=== PATIENT | male | born 1970 | race Caucasian/White ===

== ENCOUNTER 2018-03-16 17:08 | Inpatient (IN) | payer MEDICAID ==
[~2018-03-16] VITALS: Ht 175.3 cm; Wt 99.4 kg
[2018-03-16 17:10] VITALS: BP 161/92
--- NOTE | 2018-03-16 17:10 | NUR ---
Pt placed in bed 1 by EMS.
[2018-03-16] MEDS ORDERED: ACETAMINOPHEN EXTRA STRENGTH 500 MG TAB PO ONE (17:25)
[2018-03-16] MEDS ORDERED: ACETAMINOPHEN EXTRA STRENGTH 500 MG TAB ONE (17:27)
[2018-03-16] MEDS ORDERED: NACL 0.9% 3,000 ML IV ONE (17:30)
--- NOTE | 2018-03-16 17:45 | NUR ---
47/M biba [place] a [place] station with complaints of cough and congestion x2-3 days. Pt describes a productive cough with a green phlegm. Per EMS, patient was febrile on scene 100.4 per paramedics. Pt skin hot flushed to touch. Temp 100.8 orally. Pt also c/o left foot pain starting this am, denies any injury or trauma. AOX4, pt placed in a gown, on fbi investigator, pulse oximetry and blood pressure monitoring.
[2018-03-16] MEDS ORDERED: KETOROLAC 30 MG/ML VIAL IVP ONE (18:45)
--- NOTE | 2018-03-16 18:45 | NUR ---
Dr. Ferrari aware of temp 101.8; Toradol ordered and will be executed as ordered.
[2018-03-16 19:05] LABS: BASOPHILS % (AUTO) 0.3 % (0.0-2.0); HEMATOCRIT 40.4 % (36-52); HEMOGLOBIN 13.3 g/dL (12.0-18.0); LYMPHOCYTES # (AUTO) 0.6 K/uL (2.0-11.5); LYMPHOCYTES % (AUTO) 4.5 % (20.5-51.1); MEAN CORPUSCULAR HEMOGLOBIN 26 pg (27-31); MEAN CORPUSCULAR HGB CONC 33 g/dL (33-37); MEAN CORPUSCULAR VOLUME 79.6 fL (80-94); MONOCYTES # (AUTO) 0.6 K/uL (0.8-1.0); MONOCYTES % (AUTO) 4.9 % (1.7-9.3); NEUTROPHILS # (AUTO) 11.3 K/uL (1.8-7.7); NEUTROPHILS % (AUTO) 90.3 % (42.2-75.2); PLATELET COUNT (AUTO) 212 K/uL (140-450); RED BLOOD CELL COUNT(AUTO) 5.07 MIL/uL (4.20-6.10); RED CELL DISTRIBUTION WIDTH 13.5 % (11.6-13.7); WHITE BLOOD COUNT (AUTO) 12.5 K/uL (4.8-10.8)
--- NOTE | 2018-03-16 19:13 | NUR ---
Pt report given to [facility]. Transfer of care at this time.
[2018-03-16 19:27] LABS: PROTHROMBIN TIME 10.1 secs (10.8-13.4)
[2018-03-16 19:30] LABS: ANION GAP 12.5 (8-16); CARBON DIOXIDE 26.5 mmol/L (21-32); CREATININE 1.2 mg/dL (0.7-1.3)
[2018-03-16 19:36] LABS: ALBUMIN 3.1 g/dL (3.4-5.0); TOTAL BILIRUBIN 0.4 mg/dL (0.0-1.0)
[2018-03-16] MEDS ORDERED: MORPHINE SULFATE 4 MG/ML SYR IVP ONE ×2 (20:00→23:50)
[2018-03-16] MEDS ORDERED: PROMETHAZINE 25 MG/ML VIAL IVP ONE (20:05)
[2018-03-16] MEDS ORDERED: VANCOMYCIN PER PHARMACY MC PRN (21:00)
[2018-03-16] MEDS ORDERED: VANCOMYCIN 1GM/DEXT 5% PREMIX 200 ML IV ONE (21:00)
[2018-03-16] MEDS ORDERED: CEFEPIME 1,000 MG in DEXTROSE 5% 50 ML IV ONE (21:00)
[2018-03-16] MEDS ORDERED: NACL 0.9% 1,000 ML IV ONE (21:00)
[2018-03-16] MEDS ORDERED: CEFEPIME 1,000 MG VIAL ONE (21:45)
[2018-03-16] MEDS ORDERED: VANCOMYCIN 1,000 MG VIAL ONE (22:38)
[2018-03-16] MEDS ORDERED: VANCOMYCIN 1,000 MG in DEXTROSE 5% 250 ML IV ONE (22:40)
[2018-03-16 23:39] LABS: AMYLASE 78 U/L (25-115); LIPASE 59 U/L (73-393)
[2018-03-17 01:10] LABS: APPEARANCE,URINE CLEAR (CLEAR); COLOR,URINE YELLOW (YELLOW)
[2018-03-17 01:11] LABS: BILIRUBIN,URINE NEGATIVE (NEGATIVE); BLOOD, URINE NEGATIVE (NEGATIVE); LEUKOCYTE ESTERASE ,URINE NEGATIVE (NEGATIVE); NITRITE, URINE NEGATIVE (NEGATIVE); UGLUCOSE 2+ (NEGATIVE)
[2018-03-17] MEDS ORDERED: ONDANSETRON 4 MG/2 ML VIAL IM/IVP PRN (02:05)
[2018-03-17] MEDS ORDERED: HYDROcodone/APAP 7.5/325 MG 1 TAB PO PRN (02:05)
[2018-03-17] MEDS ORDERED: DOCUSATE SODIUM 100 MG GELCAP PO PRN (02:05)
[2018-03-17] MEDS ORDERED: MORPHINE SULFATE 4 MG/ML SYR IVP PRN (02:05)
[2018-03-17] MEDS ORDERED: ACETAMINOPHEN 325 MG TAB PO PRN (02:05)
[2018-03-17] MEDS ORDERED: INSULIN LISPRO SLIDING SCALE 100 UNITS/ML VIAL SUBQ PRN (02:20)
[2018-03-17] MEDS ORDERED: DEXTROSE 50% 50 ML SYR IVP PRN (02:20)
[2018-03-17] MEDS ORDERED: MECLIZINE 25 MG TAB PO ONE (02:55)
[2018-03-17] MEDS ORDERED: NACL 0.9% 1,000 ML IV SCH (03:00)
[2018-03-17] MEDS ORDERED: LEVOFLOXACIN 750 MG/D5W PREMIX 150 ML IV SCH (03:00)
[2018-03-17] MEDS ORDERED: MECLIZINE 25 MG TAB PO PRN (03:00)
[2018-03-17 03:10] VITALS: BP 143/84
--- NOTE | 2018-03-17 03:10 | NUR ---
RECEIVED PT FROM ER NURSE CLYDE-JESUSITA VIA GRACY. PT DID NOT ABMBULATE. AOX1-ANSWERS TO NAME, DIFFICULT TO ARROUSE. ON ROOM AIR, RIGHT EJ 20G, PATENT AND INTACT WITH NS RUNNING AT 60ML/HR. MRSA SWAB DONE. UNABLE TO GET MOST OF PT HX. NO S/S OF RESPIRATORY DISTRESS OR DISCOMFORT AT THIS TIME. UPDATED WHITE BOARD. BED IN LOWEST POSITION, BED BREAKS ON, BED ALARMS ON. BED SIDE TABLE AND CALL LIGHT WITHIN REACH. WILL CONTINUE TO MONITOR.
--- NOTE | 2018-03-17 03:12 | NUR ---
REPORT GIVEN AND CARE TRANSFERED TO [facility] RROM 120B. PT TRANSPORTED VIA GURNEY WITH VSS.
--- NOTE | 2018-03-17 03:45 | NUR ---
SCHEDULED MEDICATION GIVEN. NO S/S OF RESPIRATORY DISTRESS OR DISCOMFORT. PT CONTINUES TO SLEEP. WILL CONTINUE TO MONITOR.
[2018-03-17 04:31] LABS: BARBITURATE, URINE NEGATIVE ng/ml (NEG <=200); BENZODIAZEPINE, URINE NEGATIVE ng/mL (NEG <=200); CANNABINOID, URINE POSITIVE ng/mL (NEG <=50); COCAINE, URINE NEGATIVE ng/mL (NEG <=300); PHENCYCLIDINE SCREEN,URINE NEGATIVE ng/mL (NEG <=25)
[2018-03-17 04:32] LABS: OPIATE, URINE POSITIVE ng/mL (NEG <=2000)
[2018-03-17 06:13] LABS: MAGNESIUM 1.5 mg/dL (1.8-2.4); PHOSPHORUS 1.9 mg/dL (2.5-4.9); TRIGLYCERIDES 44 mg/dL (30-150)
[2018-03-17 06:14] LABS: FREE T4 (FREE THYROXINE) 1.23 ng/dL (0.76-1.46); LIPASE 62 U/L (73-393)
[2018-03-17 06:39] LABS: BASOPHILS % (AUTO) 0.3 % (0.0-2.0); HEMATOCRIT 38.5 % (36-52); HEMOGLOBIN 12.5 g/dL (12.0-18.0); LYMPHOCYTES # (AUTO) 2.7 K/uL (2.0-11.5); LYMPHOCYTES % (AUTO) 19.5 % (20.5-51.1); MEAN CORPUSCULAR HEMOGLOBIN 26 pg (27-31); MEAN CORPUSCULAR HGB CONC 33 g/dL (33-37); MEAN CORPUSCULAR VOLUME 80.3 fL (80-94); MONOCYTES % (AUTO) 7.6 % (1.7-9.3); NEUTROPHILS % (AUTO) 72.6 % (42.2-75.2); PLATELET COUNT (AUTO) 192 K/uL (140-450); RED CELL DISTRIBUTION WIDTH 13.8 % (11.6-13.7); WHITE BLOOD COUNT (AUTO) 13.7 K/uL (4.8-10.8)
[2018-03-17] MEDS: BLOOD GLUCOSE MONITORING 1 DEV DEV FS SCH ×2 (07:09→12:17)
--- NOTE | 2018-03-17 07:16 | NUR ---
ENDORSED PT CARE TO DAY SHIFT NURSE SARA FOR CONTINUITY OF CARE.
[2018-03-17] MEDS ORDERED: hePARIN / DEXT 5% PREMIX 250 ML IV SCH ×2 (07:35→08:05)
[2018-03-17] MEDS ORDERED: HEPARIN PER PHARMACY MC PRN (07:35)
[2018-03-17 08:00] VITALS: BP 146/85
--- NOTE | 2018-03-17 08:00 | NUR ---
PATIENT AWAKE, ALERT. RESPIRATION EVEN, UNLABOR ON ROOM AIR. SKIN DRY AND WARM. IV PATENT AND INTACT. PATIENT STATED HE IS NOT FEELING WELL, DENIED PAIN, SOB, N/V AT THIS TIME. VS IS STABLE. PLAN OF CARE WAS DISCUSSED WITH PATIENT. BED AT LOW POSITION, SIDE RAILS UP. CALL LIGHT WITHIN REACH.
[2018-03-17] MEDS ORDERED: METOPROLOL 25 MG TAB PO SCH (09:00)
[2018-03-17] MEDS ORDERED: LISINOPRIL 5 MG TAB PO SCH (09:00)
[2018-03-17] MEDS ORDERED: ATORVASTATIN 20 MG TAB PO SCH (09:00)
[2018-03-17] MEDS ORDERED: LACTOBACILLUS RHAMNOSUS GG 1 EACH CAP PO SCH (09:00)
[2018-03-17] MEDS ORDERED: ASPIRIN 81 MG TAB.CHEW PO SCH (09:00)
[2018-03-17] MEDS ORDERED: levETIRAcetam 500 MG TAB PO SCH (09:00)
--- NOTE | 2018-03-17 09:15 | NUR ---
PATIENT REFUSED TO GIVE CONSENT FOR CT SCAN CHEST WITH CONTRAST, AND HAVE ANOTHER IV INSERTED. WILL NOTIFY
--- NOTE | 2018-03-17 09:22 | NUR ---
PATIENT WAS TRANSFERRED TO CT SCAN IN WHEELCHAIR. PATIENT IS STABLE AT THIS TIME.
[2018-03-17 11:15] LABS: ANION GAP 14.3 (8-16); CARBON DIOXIDE 22.2 mmol/L (21-32); CREATININE 0.7 mg/dL (0.7-1.3); POTASSIUM 3.5 mmol/L (3.5-5.1)
--- NOTE | 2018-03-17 11:30 | NUR ---
PATIENT IS SLEEPING COMFORTABLY, EASILY AROUSABLE. RESPIRATION EVEN, UNLABOR ON ROOM AIR. VS IS STABLE. FAMILY AT BEDSIDE. NO DISTRESS NOTED AT THIS TIME. CALL LIGHT WITHIN REACH
[2018-03-17 12:00] VITALS: BP 139/70
--- NOTE | 2018-03-17 13:36 | NUR ---
DR. GUTIERREZ WAS MADE AWARE PATIENT IS STILL ON HEPARIN DRIP AND REFUSED TO HAVE ANOTHER IV INSERT. ADVISED TO HOLD MAG RIDER UNTIL VQ SCAN RESULT COME BACK.
[2018-03-17 13:57] LABS: MAGNESIUM 1.7 mg/dL (1.8-2.4); PHOSPHORUS 2.5 mg/dL (2.5-4.9)
[2018-03-17] MEDS ORDERED: SODIUM PHOS / POTASSIUM PHOS 1 PKT PDR PO SCH (14:00)
[2018-03-17] MEDS ORDERED: MAG SULF 2000 MG/WATER PREMIX 50 ML IV SCH (14:00)
--- NOTE | 2018-03-17 14:22 | NUR ---
PATIENT REFUSED IV INSERTION AGAIN. VQ IS UNABLE TO BE DONE PER [employer] MED TECH. DR. KAM WAS MADE AWARE.
--- NOTE | 2018-03-17 14:28 | NUR ---
03/17/18 RD INITIAL ASSESSMENT COMPLETED PLEASE REFER TO NUTRITION ASSESSMENT UNDER CARE ACTIVITY FOR ESTIMATED NUTRITIONAL NEEDS. 1. CONTINUE CCHO 60 GM DIET TOLERATED 2. PROVIDED NUTRITION EDUCATION FOR DIABETES 3. RD TO FOLLOW-UP 2-3 DAYS, HIGH RISK PIERCE PATEL RD
--- NOTE | 2018-03-17 14:30 | NUR ---
PATIENT REFUSED CT SCAN WITH CONTRAST, VQ SCAN, AND CENTRAL LINE DESPITE HAVING RISKS EXPLAINED BY DR. DILLON. PATIENT STATED HE WOULD LIKE TO LEAVE AMA, AND NOT GET THESE TREATMENTS. PATIENT SIGNED AMA FORM, AND REFUSAL TO TREATMENT. IV WAS REMOVED, CATHETER INTACT, NO ACTIVE BLEEDING SEEN. ID BAND AND SOFTWARE INTERN WERE REMOVED. ALL BELONGINGS WERE TAKEN WITH THE PATIENT.
--- NOTE | 2018-03-17 15:21 | NUR ---
RECEIVED A CALL IN THE MORNING FROM [employer]FF[employer]Y [employer] MAKER. SHE SAID REFERENCE NO IS [id number], PER JASON FROM [facility], NO REVIEW NEEDED. THEY WILL CALL IF REVIEW NEEDED. PHONE [phone]
[2018-03-18] MEDS ORDERED: LEVOFLOXACIN 750 MG/D5W PREMIX 150 ML IV SCH (04:00)
[2018-03-18 06:19] LABS: T4 (THYROXINE) 8.3 ug/dL (4.5-12.0)
--- NOTE | 2018-03-24 07:42 | NUR ---
RECEIVED A MESSAGE FROM [employer]. FAXED ER REPORT, H&P AND DISCHARGE SUMMARY TO [facility]. FAX [phone] PHONE CHRISTIANO [phone]
== END 2018-03-17 14:30 | disposition left against medical advice (07) | DRG 134 ==
LOC: MED 17:08 → MTU 03-17 02:04
PROVIDERS: ADMIT Family Medicine; ATTEND Family Medicine
DX: I26.99 Other pulmonary embolism without acute cor pulmonale (principal); E11.51 Type 2 diabetes mellitus with diabetic peripheral angiopathy without gangrene; R65.10 Systemic inflammatory response syndrome (SIRS) of non-infectious origin without acute organ dysfunction; E44.0 Moderate protein-calorie malnutrition; E87.8 Other disorders of electrolyte and fluid balance, not elsewhere classified; E87.1 Hypo-osmolality and hyponatremia; E11.65 Type 2 diabetes mellitus with hyperglycemia; K21.9 Gastro-esophageal reflux disease without esophagitis; M94.0 Chondrocostal junction syndrome [Tietze]; I10 Essential (primary) hypertension; Z88.0 Allergy status to penicillin; G40.909 Epilepsy, unspecified, not intractable, without status epilepticus; E83.51 Hypocalcemia; Z68.32 Body mass index [BMI] 32.0-32.9, adult; Z59.0 Homelessness; Z96.652 Presence of left artificial knee joint; F17.210 Nicotine dependence, cigarettes, uncomplicated; G90.9 Disorder of the autonomic nervous system, unspecified; E83.39 Other disorders of phosphorus metabolism; E83.42 Hypomagnesemia; Z53.21 Procedure and treatment not carried out due to patient leaving prior to being seen by health care provider
CPT/HCPCS: 36415; 70450; 71045; 80048; 80053; 80305; 81003; 82150; 82948; 83036; 83605; 83690; 83735; 83880; 84100; 84436; 84439; 84443; 84479; 84484; 85025; 85379; 85610; 85730; 87040; 87081; 87086; 93005; 96361; 96365; 96366; 96367; 96375; 96376; 99285; G0482; J0692; J1644; J1885; J1956; J2270; J2550; J3370; J7030; J7060

== ENCOUNTER 2019-01-02 18:29 | Emergency (ER) | payer MEDICAID ==
[~2019-01-02] VITALS: Ht 175.3 cm; Wt 104.3 kg
[2019-01-02 18:38] VITALS: BP 149/89
--- NOTE | 2019-01-02 19:02 | NUR ---
PT TO ER BED 7
--- NOTE | 2019-01-02 19:19 | NUR ---
PT TO ED WITH C/O ABD PAIN X 2 DAYS. REPORTS NAUSEA. DENIES VOMITTING. REPORTS PAIN GENERALZIED. ABD IS SOFT NON TENDER. BOWEL SOUNDS PRESENT. PT GROANS UPON PALPATION OF ABDOMEN. PT PLACED INTO BED, PENDING MD LARWENCE.
--- NOTE | 2019-01-02 20:24 | NUR ---
PT TO RADIOLOGY VIA WHEELCHAIR BY TECH.
[2019-01-02 20:25] LABS: APPEARANCE,URINE CLEAR (CLEAR); BILIRUBIN,URINE NEGATIVE (NEGATIVE); BLOOD, URINE 1+ (NEGATIVE); COLOR,URINE ORANGE (YELLOW); LEUKOCYTE ESTERASE ,URINE NEGATIVE (NEGATIVE); NITRITE, URINE NEGATIVE (NEGATIVE); UGLUCOSE NEGATIVE (NEGATIVE)
[2019-01-02 20:32] LABS: BARBITURATE, URINE NEG. ng/ml (NEG <=200); BENZODIAZEPINE, URINE NEG. ng/mL (NEG <=200); CANNABINOID, URINE NEG. ng/mL (NEG <=50); COCAINE, URINE NEG. ng/mL (NEG <=300); OPIATE, URINE POS. ng/mL (NEG <=2000); PHENCYCLIDINE SCREEN,URINE NEG. ng/mL (NEG <=25)
[2019-01-02 20:35] LABS: WBC,URINE 0-5 /HPF (0-5)
--- NOTE | 2019-01-02 20:36 | NUR ---
PT RETURN FROM RAD
[2019-01-02] MEDS ORDERED: NALOXONE 0.4 MG/ML VIAL SUBQ ONE (21:30)
--- NOTE | 2019-01-02 21:30 | NUR ---
PT GCS 12 (E2 M6 V4), UNABLE TO KEEP EYES OPEN FOR MORE THAN 2 SECONDS. PT PLACED ON CM/PULSE OX, AIRWAY INTACT, RESPIRATIONS EVEN AND UNLABORED. ULISSES BECERRA MADE AWARE.
[2019-01-02] MEDS ORDERED: AMMONIA AROMATIC 1 INHL INH ONE ×2 (21:50→22:01)
--- NOTE | 2019-01-02 21:50 | NUR ---
PT GCS 14 (E3, M6, V5), AOX4. REPORTS " HE HAS BEEN TIRED".
[2019-01-02 21:53] VITALS: BP 138/80
--- NOTE | 2019-01-02 21:53 | NUR ---
PT TO BE DISCHARGED, REFUSING TO SIGN DISCHARGE PAPERS AND WAS UNCOOPERATIVE. PT WALKED OUT OF ER. ULISSES BECERRA AWARE.
== END 2019-01-02 21:53 | disposition home or self-care (01) ==
LOC: MED 18:29
DX: K59.00 Constipation, unspecified (principal); F15.10 Other stimulant abuse, uncomplicated; F11.10 Opioid abuse, uncomplicated; E11.9 Type 2 diabetes mellitus without complications; I10 Essential (primary) hypertension; Z88.0 Allergy status to penicillin
CPT/HCPCS: 74022; 80305; 81001; 96372; 99284; J2310

== ENCOUNTER 2019-01-24 21:11 | Inpatient (IN) | payer MEDICAID ==
[~2019-01-24] VITALS: Ht 175.3 cm; Wt 112.1 kg
--- NOTE | 2019-01-24 21:11 | NUR ---
BIB EMS. PT FOUND IN FIELD WANDERING. BYSTANDER CALLED 911. PT C/O COUGH, CONGESTION AND HEROIN USE x5 HRS AGO. PT IS LETHARGIC. EMS STATED 02SAT 91% AT RA. PLACED ON NC @4LPM. BILAT LUNGS WHEEZING AND COARSE PRODUCTIVE COUGH. A&OX4 BUT LETHARGIC. PLACED IN BED WITH NC AND HOB ELEVATED. SEIZURE PRECAUTIONS IN PLACE. RESPIRATORY AND NURSING STAFF AT BEDSIDE. ER MD AWARE. CONTINUE TO MONITOR.
--- NOTE | 2019-01-24 21:11 | NUR ---
PT JACQUES BLS. TAKEN TO BED 7
[2019-01-24 21:19] VITALS: BP 188/101
[2019-01-24] MEDS ORDERED: ALBUTEROL SULFATE/IPRATROPIU 3 ML SOL IH ONE ×2 (21:20)
--- NOTE | 2019-01-24 21:41 | NUR ---
X-Ray at bedside.
[2019-01-24] MEDS ORDERED: NACL 0.9% 1,000 ML IV SCH (21:49)
[2019-01-24] MEDS ORDERED: SULFAMETH/TRIMETH DS 800/160MG 1 TAB PO ONE (21:50)
--- NOTE | 2019-01-24 22:00 | NUR ---
PT UNABLE TO PROVIDE URINE SAMPLE.
--- NOTE | 2019-01-24 22:09 | NUR ---
EKG PERFORMED AT BEDSIDE. PT COVERED IN GOWN AND BLANKET DURING PROCEDURE.
--- NOTE | 2019-01-24 22:10 | NUR ---
PT REFUSED ABG. MD MILLA MAHONEY AND RN.
--- NOTE | 2019-01-24 22:20 | NUR ---
Dr. Ferrari evaluating patient at bedside.
[2019-01-24 22:23] LABS: HEMATOCRIT 30.5 % (36-52); HEMOGLOBIN 9.7 g/dL (12.0-18.0); MEAN CORPUSCULAR HEMOGLOBIN 25 pg (27-31); MEAN CORPUSCULAR HGB CONC 32 g/dL (33-37); PLATELET COUNT (AUTO) 431 K/uL (140-450); RED BLOOD CELL COUNT(AUTO) 3.95 MIL/uL (4.20-6.10); WHITE BLOOD COUNT (AUTO) 22.9 K/uL (4.8-10.8)
[2019-01-24] MEDS ORDERED: ACETAMINOPHEN 325 MG TAB PO PRN (22:25)
[2019-01-24] MEDS ORDERED: HYDROcodone/APAP 7.5/325 MG 1 TAB PO PRN (22:25)
[2019-01-24] MEDS ORDERED: DOCUSATE SODIUM 100 MG GELCAP PO PRN (22:25)
[2019-01-24] MEDS ORDERED: ONDANSETRON 4 MG/2 ML VIAL IM/IVP PRN (22:25)
--- NOTE | 2019-01-24 22:30 | NUR ---
PT STILL UNABLE TO PROVIDE URINE SAMPLE.
[2019-01-24] MEDS ORDERED: IBUPROFEN 800 MG TAB PO SCH (22:35)
[2019-01-24] MEDS ORDERED: LEVOFLOXACIN 500 MG/D5W PREMIX 100 ML IV ONE (22:40)
[2019-01-24] MEDS ORDERED: IBUPROFEN 800 MG TAB PO ONE (22:40)
--- NOTE | 2019-01-24 22:40 | NUR ---
PICTURE TAKEN OF RIGHT LOWER LEG.
[2019-01-24 22:48] LABS: PROTHROMBIN TIME 10.7 secs (10.8-13.4)
[2019-01-24 22:52] LABS: ALBUMIN 1.9 g/dL (3.4-5.0); CARBON DIOXIDE 25.6 mmol/L (21-32); CREATININE 0.7 mg/dL (0.7-1.3); POTASSIUM 4.6 mmol/L (3.5-5.1); TOTAL BILIRUBIN 1.2 mg/dL (0.0-1.0)
[2019-01-24 22:53] LABS: BASOPHILS % (MANUAL) 0 % (0-2); EOSINOPHILS % (MANUAL) 0 % (0-4); LYMPHOCYTES % (MANUAL) 7 % (20-46); MONOCYTES % (MANUAL) 12 % (5-12)
[2019-01-24] MEDS ORDERED: ALBUTEROL SULFATE/IPRATROPIU 3 ML SOL IH PRN (22:55)
[2019-01-24 22:59] LABS: ACETAMINOPHEN < 0.5 ug/ml (10-30); SALICYLATE < 2.8 mg/dL (2.8-20.0)
[2019-01-24 23:00] VITALS: BP 175/90
--- NOTE | 2019-01-24 23:00 | NUR ---
RECEIVED BEDSIDE REPORT FROM [facility] NURSE FOR CONTINUITY OF CARE. PATIENT SLEEPING INTERMITTENTLY BUT AWAKENS WHEN CALLED. ORIENTED TO PERSON, PLACE, AND TIME. SPEECH COHERENT. DENIES PAIN. RESPIRATION EVEN UNLABORED ON 3L OF O2 VIA NC. LUNGS SOUND RHONCHI. PULSE OX ON RIGHT INDEX FINGER SHOWING 94%. SKIN IS WARM AND DRY. IV PATENT AND INTACT. OPEN WOUND NOTED ON THE RIGHT LOWER LEG. SWELLING ON THE BLE NOTED. ABDOMEN SOFT AND NON-TENDER. BOWEL SOUNDS ACTIVE IN ALL 4 QUADRANTS. MRSA SCREEN DONE. ORIENT PATIENT TO ROOM, STAFF, AND CALL LIGHT AND VERBALIZE ITS USE. PLAN OF CARE WAS DISCUSSED. BED IS AT LOW POSITION. FALL RISK AND SEIZURE PROTOCOL IN PLACE. WILL CONTINUE TO MONITOR.
[2019-01-24 23:03] LABS: MAGNESIUM 1.7 mg/dL (1.8-2.4); PHOSPHORUS 3.3 mg/dL (2.5-4.9); THYROID STIMULATING HORMONE 1.22 uIU/mL (0.34-3.74)
--- NOTE | 2019-01-24 23:06 | NUR ---
FIRST DOSE OF LEVQUINE STARTED. EMAR NOT ALLOWING CHANGES AT THIS TIME. LEVAQUIN 500MG IN 100ML STARTED IN LEFT EJ AT A RATE OF 100ML/HR.
[2019-01-24] MEDS ORDERED: DEXTROSE 50% 50 ML SYR IVP PRN (23:10)
--- NOTE | 2019-01-24 23:13 | NUR ---
REPORT GIVEN AND CARE TRANSFERED TO SWAPNIL RN ROOM 111B. TRANSFERED VIA [facility].
[2019-01-24] MEDS: LISINOPRIL 20 MG TAB PO SCH (23:46)
[2019-01-24] MEDS: NACL 0.9% 1,000 ML IV SCH (23:47)
[2019-01-25] MEDS ORDERED: LEVOFLOXACIN 750 MG/D5W PREMIX 150 ML IV SCH ×2 (01:00)
--- NOTE | 2019-01-25 02:01 | NUR ---
CHECKED PATIENT. PATIENT SLEEPING RESPIRATION EVEN UNLABORED ON 3L OF O2 NC. NO DISTRESS NOTED WILL CONTINUE TO MONITOR.
[2019-01-25 04:00] VITALS: BP 138/83
--- NOTE | 2019-01-25 04:00 | NUR ---
VITALS WERE TAKEN. ALL SCHEDULE MEDS WERE GIVEN. PATIENT BP 138/83 STABLE. NO DISTRESS NOTED WILL CONTINUE TO MONITOR.
[2019-01-25] MEDS ORDERED: CLINDAMYCIN 600 MG/4 ML VIAL ONE (04:11)
[2019-01-25] MEDS ORDERED: CLINDAMYCIN 600 MG in DEXTROSE 5% 50 ML IV SCH (05:00)
[2019-01-25] MEDS: BLOOD GLUCOSE MONITORING 1 DEV DEV FS SCH ×4 (05:49→20:56)
[2019-01-25] MEDS ORDERED: LORazepam 1 MG TAB PO PRN (06:25)
[2019-01-25] MEDS: ALBUTEROL SULFATE/IPRATROPIU 3 ML SOL IH SCH ×3 (06:47→19:07)
[2019-01-25 07:17] LABS: BASOPHILS # (AUTO) 0.1 K/uL (0.00-0.22); BASOPHILS % (AUTO) 0.3 % (0.0-2.0); EOSINOPHILS # (AUTO) 0.1 K/uL (0-0.4); EOSINOPHILS % (AUTO) 0.4 % (0.0-4.0); HEMATOCRIT 31.9 % (36-52); HEMOGLOBIN 10.3 g/dL (12.0-18.0); LYMPHOCYTES # (AUTO) 2.2 K/uL (2.0-11.5); LYMPHOCYTES % (AUTO) 10.4 % (20.5-51.1); MEAN CORPUSCULAR HEMOGLOBIN 25 pg (27-31); MEAN CORPUSCULAR HGB CONC 32 g/dL (33-37); MEAN CORPUSCULAR VOLUME 77.9 fL (80-94); MONOCYTES # (AUTO) 2.1 K/uL (0.8-1.0); MONOCYTES % (AUTO) 9.7 % (1.7-9.3); NEUTROPHILS % (AUTO) 79.2 % (42.2-75.2); PLATELET COUNT (AUTO) 413 K/uL (140-450); RED CELL DISTRIBUTION WIDTH 15.7 % (11.6-13.7); WHITE BLOOD COUNT (AUTO) 21.5 K/uL (4.8-10.8)
[2019-01-25 07:21] LABS: APPEARANCE,URINE SL CLOUDY (CLEAR); BILIRUBIN,URINE 1+ (NEGATIVE); BLOOD, URINE 3+ (NEGATIVE); COLOR,URINE DARK YELLOW (YELLOW); LEUKOCYTE ESTERASE ,URINE NEGATIVE (NEGATIVE); NITRITE, URINE NEGATIVE (NEGATIVE); UGLUCOSE NEGATIVE (NEGATIVE)
--- NOTE | 2019-01-25 07:22 | NUR ---
ENDORSED PATIENT TO DAY SHIFT NURSE FOR CONTINUITY OF CARE. PATIENT CONDITION STABLE.
--- NOTE | 2019-01-25 07:23 | NUR ---
GOT BEDSIDE REPORT FROM JESUSITA KRAFT. PATIENT ON TELE MONITOR AND STANDARD PRECAUTIONS IN PLACE. PATIENT AAOX4 AND ON BIPAP IPAP 14, RATE 12, EPAP 6, FIO2 90%, NO DISTRESS NOTED. R LOWER LEG WOUND, DRESSINGS CLEAN DRY AND INTACT. IV ON L EG 20 G INFUSING NS AT 100, IV ASYMPTOMATIC PATENT AND INTACT. BED IN LOW POSITION, CALL LIGHT WITHIN REACH. WILL CONTINUE TO MONITOR.
[2019-01-25 07:39] LABS: ANION GAP 14.2 (8-16); CARBON DIOXIDE 24.3 mmol/L (21-32); CREATININE 1.1 mg/dL (0.7-1.3); POTASSIUM 4.5 mmol/L (3.5-5.1)
[2019-01-25 07:49] LABS: RBC,URINE 20-50 /HPF (0-5); WBC,URINE 0-5 /HPF (0-5)
[2019-01-25 07:50] LABS: URINE AMORPHOUS URATE 2+ /HPF (None Seen)
[2019-01-25 07:51] LABS: COARSE GRANULAR CASTS,URINE 0-10 /LPF (None Seen); FINE GRANULAR CASTS,URINE 0-10 /LPF (None Seen); HYALINE CASTS, URINE 0-10 /LPF (None Seen)
[2019-01-25 07:52] LABS: MAGNESIUM 1.8 mg/dL (1.8-2.4); PHOSPHORUS 4.9 mg/dL (2.5-4.9)
[2019-01-25 07:53] LABS: CHOL/HDL RATIO 3.5 (1-4.5)
[2019-01-25 08:00] VITALS: BP 176/94
[2019-01-25] MEDS ORDERED: MAG SULF 2000 MG/WATER PREMIX 50 ML IV SCH (08:00)
[2019-01-25] MEDS ORDERED: FERROUS GLUCONATE 324 MG TAB PO SCH (08:00)
--- NOTE | 2019-01-25 08:10 | NUR ---
PLACED PT ON BIPAP WITH SETTINGS CHARTED PT IN RESP DISTRESS PER DR ASIF PT SEEMS TO BE GENESIS WELL AND RELAXED WILL CONTINUE TO MOMITOR PT ON BIPAP
--- NOTE | 2019-01-25 08:55 | NUR ---
PATIENT HAS BEEN SCREENED AND CATEGORIZED HIGH NUTRITION RISK. PATIENT WILL BE SEEN WITHIN 1-2 DAYS OF ADMISSION. 01/25/19-01/26/[address]
[2019-01-25] MEDS: LISINOPRIL 20 MG TAB PO SCH (09:00)
[2019-01-25] MEDS ORDERED: AZITHROMYCIN 500 MG in DEXTROSE 5% 250 ML IV SCH (09:00)
--- NOTE | 2019-01-25 09:06 | NUR ---
MAGNESIUM 1.8 WITHIN NORMAL LIMITS. HELD MG RIDER.
[2019-01-25] MEDS: LACTOBACILLUS RHAMNOSUS GG 1 EACH CAP PO SCH (09:09)
[2019-01-25] MEDS: levETIRAcetam 500 MG TAB PO SCH ×2 (09:09→20:50)
[2019-01-25] MEDS: THERAHONEY GEL 42.5 GM TP SCH (09:10)
[2019-01-25] MEDS: NACL 0.9% 1,000 ML IV SCH ×2 (09:13→18:45)
--- NOTE | 2019-01-25 09:32 | NUR ---
LABORATORY ASSOCIATE CALLED BY [facility]/RN TO BEDSIDE AWAKE AND ALERT PATIENT STATES "I WANT TO EAT BREAKFAST" TRAY AT BEDSIDE REMOVED FROM BIPAP TO MASK PLACED ON SUPPLEMENTAL OXYGEN AT 3 LPM VIA NC
--- NOTE | 2019-01-25 09:34 | NUR ---
ADMINISTERED SCHEDULED MEDS. PATIENT TOLERATED WELL. WILL CONTINUE TO MONITOR.
[2019-01-25 10:09] LABS: BARBITURATE, URINE NEG. ng/ml (NEG <=200); BENZODIAZEPINE, URINE NEG. ng/mL (NEG <=200); CANNABINOID, URINE NEG. ng/mL (NEG <=50); COCAINE, URINE NEG. ng/mL (NEG <=300); OPIATE, URINE POS. ng/mL (NEG <=2000); PHENCYCLIDINE SCREEN,URINE NEG. ng/mL (NEG <=25)
--- NOTE | 2019-01-25 10:10 | NUR ---
GOT CALL FROM ULTRASOUND SAYING THEY NEED A FULL BLADDER FOR PROCEDURE. INSTRUCTED PATIENT TO KEEP HIS BLADDER FULL FOR NEXT HOUR AND TO DRINK SOME WATER FOR HIS ULTRASOUND. PATIENT VERBALIZED UNDERSTANDING
--- NOTE | 2019-01-25 10:51 | NUR ---
HELD LISINOPRIL. MED WAS REMOVED FROM [facility], SO I WAS UNABLE TO GET ONE FOR SCHEDULED TIME
--- NOTE | 2019-01-25 11:25 | NUR ---
PT OFF BIPAP GOING ON AND OFF GETTING UP TO GO TO BATHROOM NO PT AWAKE ALERT NONCOMPLIANT WILL CONTINUE TO MONITOR
[2019-01-25] MEDS: SODIUM FERRIC GLUCONATE 125 MG in NACL 0.9% 100 ML IV SCH (11:30)
[2019-01-25 12:00] VITALS: BP 142/90
[2019-01-25] MEDS: FERROUS SULFATE 325 MG TABEC PO SCH ×2 (12:00→16:14)
[2019-01-25] MEDS: CLINDAMYCIN PHOS 600MG/D5W PM 50 ML IV SCH ×2 (13:00→20:51)
[2019-01-25] MEDS ORDERED: VANCOMYCIN PER PHARMACY MC PRN (13:10)
[2019-01-25] MEDS: methylPREDNISolone SS 125 MG/2 ML VIAL IVP SCH ×2 (13:25→20:51)
--- NOTE | 2019-01-25 13:34 | NUR ---
PATIENT WATCHING TV, ON 3 L O2 VIA NC, O2 SAT 97%. WILL CONTINUE TO MONITOR.
[2019-01-25] MEDS: VANCOMYCIN 1GM/DEXT 5% PREMIX 200 ML IV SCH (15:00)
--- NOTE | 2019-01-25 15:55 | NUR ---
01/25/19 RD INITIAL ASSESSMENT COMPLETED PLEASE REFER TO NUTRITION ASSESSMENT UNDER CARE ACTIVITY FOR ESTIMATED NUTRITIONAL NEEDS. [facility]. [facility] 2. DIABETES EDUCATION WAS PROVIDED 3. RD TO FOLLOW-UP 5-7 DAYS, LOW RISK PIERCE PATEL RD
[2019-01-25 16:00] VITALS: BP 155/97
--- NOTE | 2019-01-25 16:20 | NUR ---
ADMINISTERED SCHEDULED MEDS. BLOOD SUGAR OF 153, TOLD PATIENT HE NEEDS 2 UNITS OF INSULIN. PATIENT REFUSED.
--- NOTE | 2019-01-25 18:37 | NUR ---
ATTEMPTED TO START 2 NEW IVS. NO NEW ONE STARTED AT THIS TIME. STILL HAS L AC 20 G, ASYMPTOMATIC PATENT AND INTACT.
--- NOTE | 2019-01-25 19:16 | NUR ---
* ST NOTE * Pt seen at bedside. Pt alert, cooperative and engaged throughout session, reporting no c/o pain at this time. Pt also on 02 at 3 LPM via NC, continuous, sating btwn 90-94 throughout evaluation. Bedside dysphagia and oral mechanism exams completed. See evaluation report for further details. Pt tolerating 8/8 alternating PO trials of regular solid saltine crackers as well as 8/8 alternating PO trials of thin liquid apple juice via a straw, all w/o s/s of aspiration or choking. Pt and nsg Francesca education completed re: aspiration precautions and safe swallow compensatory strategies pt and caregivers/nsg could utilize to aid pt w/swallow function, w/pt and nsg verbalizing understanding and agreement w/clinician's recommendations. It is thus recommended pt's PO diet consistency remain as regular solids w/thin liquids for all meals, w/pt and nsg agreeable. No further ST follow up recommended at this time. Pt and caregiver/Nsg Francesca education completed re: results of evaluation; benefits of abiding by aspiration precautions and recommended PO diet consistency; and prognosis for improvement; with pt and caregiver/Nsg Francesca verbalizing understanding and agreement w/clinician's recommendations. Recommend: - CONTINUE PO DIET CONSISTENCY OF REGULAR SOLIDS W/THIN LIQUIDS for all meals - WHOLE PILL MEDICATION ADMINISTRATION - MAINTAIN STRICT ASPIRATION PRECAUTIONS DURING PT'S PO INTAKE 2/2 to PNA - Pt can self-feed - CUE/REMIND PT PRIOR TO PO INTAKE TO SIT UP AT 80-90 DEGREE ANGLE DURING PO INTAKE; EAT SLOWLY; ALTERNATE BTWN SOLIDS & LIQUIDS; AND USE SMALL BITES/SIPS No further ST follow up recommended at this time. NOMS Level 2
--- NOTE | 2019-01-25 19:25 | NUR ---
GAVE BEDSIDE REPORT TO SWAPNIL, PATIENT ENDORSED IN STABLE CONDITION, 3 L O2 VIA NC, NO DISTRESS NOTED.
--- NOTE | 2019-01-25 19:35 | NUR ---
RECEIVED BEDSIDE REPORT FROM DAY SHIFT NURSE FOR CONTINUITY OF CARE. PATIENT IS AWAKE, ALERT, AND COOPERATIVE. RESPIRATION EVEN UNLABORED ON 3L O2 VIA NC. SATING 90-93% NO DISTRESS NOTED. SKIN IS WARM AND DRY. IV PATENT AND INTACT. ALL SAFETY PRECAUTIONS IN PLACE. PLAN OF CARE WAS DISCUSSED. BED IS AT LOW POSITION. CALL LIGHT WITHIN REACH AND ABLE TO VERBALIZES ITS USE. WILL CONTINUE TO MONITOR.
[2019-01-25 20:00] VITALS: BP 155/90
--- NOTE | 2019-01-25 20:00 | NUR ---
RT INCREASE O2 TO 6L PATIENT TOLERATING IT WELL. SATING 93% NO DISTRESS NOTED. WILL CONTINUE TO MONITOR
--- NOTE | 2019-01-25 20:00 | NUR ---
INITIAL ASSESSMENT DONE. VITALS WERE TAKEN. PATIENT CONDITION STABLE. WILL CONTINUE TO MONITOR.
--- NOTE | 2019-01-25 20:30 | NUR ---
ALL SCHEDULE MEDS WERE GIVEN PER ORDER. NO ASE NOTED. WILL CONTINUE TO MONITOR
[2019-01-25] MEDS: INSULIN LISPRO SLIDING SCALE 100 UNITS/ML VIAL SUBQ PRN (20:55)
--- NOTE | 2019-01-25 22:30 | NUR ---
PATIENT LYING IN BED WATCHING TV. RESPIRATION EVEN UNLABORED ON 6L OF O2 VIA NC. NO DISTRESS NOTED. WILL CONTINUE TO MONITOR.
[2019-01-25] MEDS: LEVOFLOXACIN 750 MG/D5W PREMIX 150 ML IV SCH (23:41)
[2019-01-26] VITALS: BP 133/75
--- NOTE | 2019-01-26 | NUR ---
VITALS WERE TAKEN. PATIENT CONDITION STABLE. NO DISTRESS NOTED. WILL CONTINUE TO MONITOR
[2019-01-26] MEDS: VANCOMYCIN 1GM/DEXT 5% PREMIX 200 ML IV SCH (02:00)
--- NOTE | 2019-01-26 02:00 | NUR ---
CHECKED PATIENT. PATIENT SLEEPING RESPIRATION EVEN UNLABORED ON 6L O2 VIA NC. NO DISTRESS NOTED. WILL CONTINUE TO MONITOR.
[2019-01-26 04:00] VITALS: BP 138/80
--- NOTE | 2019-01-26 04:00 | NUR ---
VITALS WERE TAKEN. PATIENT CONDITION STABLE. SATING 94% ON 6L O2 VIA NC. NO DISTRESS NOTED. WILL CONTINUE TO MONITOR
[2019-01-26] MEDS: CLINDAMYCIN PHOS 600MG/D5W PM 50 ML IV SCH ×2 (04:05→13:59)
[2019-01-26] MEDS: methylPREDNISolone SS 125 MG/2 ML VIAL IVP SCH ×3 (04:05→21:17)
[2019-01-26] MEDS: NACL 0.9% 1,000 ML IV SCH (04:11)
--- NOTE | 2019-01-26 05:48 | NUR ---
RT AT BEDSIDE. PATIENT SATING 93% ON 5L OF O2 VIA NC. NO DISTRESS NOTED. WILL CONTINUE TO MONITOR.
[2019-01-26] MEDS: BLOOD GLUCOSE MONITORING 1 DEV DEV FS SCH ×4 (06:30→21:00)
[2019-01-26] MEDS ORDERED: DEXT 5% /NACL 0.9% 1,000 ML IV SCH (06:30)
--- NOTE | 2019-01-26 06:30 | NUR ---
PATIENT IS DIABETIC AND NPO SINCE MIDNIGHT 01/26/18. PATIENT BLOOD GLUCOSE 169mg/dL. HOLD INSULIN PER PARAMETER ORDER.
--- NOTE | 2019-01-26 07:19 | NUR ---
ENDORSED PATIENT TO DAY SHIFT NURSE FOR CONTINUITY OF CARE. PATIENT IS STABLE.
--- NOTE | 2019-01-26 07:20 | NUR ---
GOT BEDSIDE REPORT FROM JESUSITA KRAFT. PATIENT ON TELE MONITOR AND STANDARD PRECAUTIONS IN PLACE. PATIENT AAOX4 AND ON 5 L O2 VIA NC, NO DISTRESS NOTED. R LOWER LEG OPEN WOUND DRESSING CLEAN DRY AND INTACT. FALL RISK PROTOCOL IN PLACE, IV ON L EJ 20 G INFUSING D5 NS AT 100, IV ASYMPTOMATIC PATENT AND INTACT. BED IN LOW POSITION, CALL LIGHT WITHIN REACH, SIDE RAILS X 2 UP.
[2019-01-26] MEDS: ALBUTEROL SULFATE/IPRATROPIU 3 ML SOL IH SCH ×3 (07:30→19:16)
[2019-01-26 08:00] VITALS: BP 149/84
[2019-01-26] MEDS: THERAHONEY GEL 42.5 GM TP SCH ×2 (09:00→13:00)
[2019-01-26] MEDS: LACTOBACILLUS RHAMNOSUS GG 1 EACH CAP PO SCH (09:09)
[2019-01-26] MEDS: levETIRAcetam 500 MG TAB PO SCH ×2 (09:09→21:18)
[2019-01-26] MEDS: FERROUS SULFATE 325 MG TABEC PO SCH ×3 (09:09→16:54)
[2019-01-26] MEDS: LISINOPRIL 20 MG TAB PO SCH (09:09)
--- NOTE | 2019-01-26 09:11 | NUR ---
ADMINISTERED SCHEDULED MEDS. PATIENT TOLERATED WELL. WILL CONTINUE TO MONITOR.
[2019-01-26 09:30] LABS: HEMATOCRIT 30.8 % (36-52); HEMOGLOBIN 10.1 g/dL (12.0-18.0); MEAN CORPUSCULAR HEMOGLOBIN 25 pg (27-31); MEAN CORPUSCULAR HGB CONC 33 g/dL (33-37); MEAN CORPUSCULAR VOLUME 76.8 fL (80-94); PLATELET COUNT (AUTO) 503 K/uL (140-450); RED BLOOD CELL COUNT(AUTO) 4.01 MIL/uL (4.20-6.10); RED CELL DISTRIBUTION WIDTH 16.3 % (11.6-13.7); WHITE BLOOD COUNT (AUTO) 22.8 K/uL (4.8-10.8)
[2019-01-26 10:07] LABS: ANION GAP 13.7 (8-16); CARBON DIOXIDE 23.4 mmol/L (21-32); CREATININE 1.3 mg/dL (0.7-1.3); POTASSIUM 5.1 mmol/L (3.5-5.1)
[2019-01-26 10:13] LABS: PHOSPHORUS 4.5 mg/dL (2.5-4.9)
--- NOTE | 2019-01-26 10:15 | NUR ---
WOUND CARE EVALUATION NOTE: REASON FOR EVALUATION: RLE WOUND SKIN ASSESSMENT DONE WITH THIS 48 Y/O MALE PT ADMITTED TO [facility] WITH INITIAL DX OF SOB. PAST MEDICAL HX INCLUDES HTN,DM AND SEIZURE WITH SUBSTANCE ABUSE. PT. ADMITTED WITH CHRONIC WOUND TO [facility] FOR UNKNOWN LENGTH OF TIME. ALL ABOVE INFORMATION OBTAINED FROM ADMISSION H&P AND PT. PT IS AAX4. PT SKIN IS WARM AND DRY, BLE FEW HAIR GROWTH, BILATERAL DORSAL PEDAL PULSES PRESENT AND NORMAL. CAPILLARY REFILLED < 2 SEC. X 10 TOES. PLAN OF CARE AND PRESSURE INJURY PREVENTIONS DISCUSSED WITH PRIMARY RN AND PT. PT. VERBALIZES UNDERSTAND. INTEGUMENTARY: -RIGHT LATERAL LOWER LEG SKIN ALTERATION WITH FULL THICKNESS LOSS OF SKIN 5X3X0.3CM, WOUND BED IS PINK, SMALL AMOUNT SEROUS DRAINAGE WITH NO ODOR, WOUND EDGE WELL DEFINED, NAGI WOUND SKIN INTACT, NO REDNESS NO SWELLING. RECOMMENDATIONS: -CLEANSE RLE WOUND WITH NS. PAT DRY, APPLY THERAHONEY GEL AND COVER WITH ISLAND DRESSING QD AND PRN IF SOILING -OFFLOAD BILATERAL HEELS BY PLACING PILLOWS UNDER CALVES UNLESS OTHERWISE CONTRAINDICATED -PRESSURE REDISTRIBUTION SURFACE THERAPY -TURN AND REPOSITION Q2H, OFFLOAD SACRALCOCCYX BY TURNING RIGHT AND LEFT ALL ABOVE RECOMMENDATIONS DISCUSSED WITH PRIMARY RN WILL FOLLOW UP PT Q7-10 DAYS. PLEASE CONTACT WOUND CARE NURSE FOR ANY QUESTION AND CHANGE OF WOUND CONDITION.
[2019-01-26 10:18] LABS: LYMPHOCYTES % (MANUAL) 6 % (20-46); MONOCYTES % (MANUAL) 1 % (5-12)
[2019-01-26 10:19] LABS: BASOPHILS % (MANUAL) 0 % (0-2); EOSINOPHILS % (MANUAL) 0 % (0-4)
[2019-01-26] MEDS ORDERED: NACL 0.9% 1,000 ML IV SCH (11:00)
[2019-01-26 11:33] LABS: BILIRUBIN,DIRECT 0.2 mg/dL (0.0-0.3); TOTAL BILIRUBIN 0.5 mg/dL (0.0-1.0)
[2019-01-26] MEDS ORDERED: SODIUM FERRIC GLUCONATE 125 MG in NACL 0.9% 100 ML IV SCH (11:40)
[2019-01-26 12:00] VITALS: BP 143/98
[2019-01-26] MEDS ORDERED: FUROSEMIDE 20 MG TAB PO SCH (12:15)
[2019-01-26] MEDS: SODIUM FERRIC GLUCONATE 125 MG in NACL 0.9% 100 ML IV SCH (12:19)
[2019-01-26] MEDS: INSULIN LISPRO SLIDING SCALE 100 UNITS/ML VIAL SUBQ PRN ×3 (12:25→22:09)
--- NOTE | 2019-01-26 12:26 | NUR ---
ADMINISTERED SCHEDULED MEDS. PATIENT TOLERATED WELL. ON ROOM AIR, O2 SAT RANGING FROM 90%-93%
[2019-01-26 12:27] LABS: FOLIC ACID 11.9 ng/mL (>3.0)
[2019-01-26] MEDS: MORPHINE SULFATE 2 MG/ML SYR IVP PRN (13:09)
[2019-01-26] MEDS ORDERED: VANCOMYCIN HCL 1,250 MG in DEXTROSE 5% 250 ML IV SCH ×4 (15:30)
--- NOTE | 2019-01-26 15:30 | NUR ---
ADMINISTERED SCHEDULED MEDS. PATIENT TOLERATED WELL, ON 4 L O2 VIA NC, NO DISTRESS NOTED
[2019-01-26 16:00] VITALS: BP 125/69
--- NOTE | 2019-01-26 17:00 | NUR ---
ADMINISTERED 6 UNITS INSULIN FOR BLOOD SUGAR 264
--- NOTE | 2019-01-26 19:10 | NUR ---
RECEIVED REPORT FROM [facility] DAYSHIFT NURSE AT BEDSIDE FOR CONTINUITY OF CARE, PT IN STABLE CONDITION.
--- NOTE | 2019-01-26 19:10 | NUR ---
GAVE REPORT TO JESUSITA MORALES. PATIENT ENDORSED IN STABLE CONDITION, ON 4 L O2 NC, NO DISTRESS
[2019-01-26 20:00] VITALS: BP 126/65
--- NOTE | 2019-01-26 20:00 | NUR ---
PT IN BED NO S/S OF PAIN OR DISTRESS NOTED. OXIMIZER NOW AT 5 LITERS POST BREATHING TXMENT. T 97.9 P 88 R 18 B/P 126/65 02 95% WITH 5 LITERS VIA OXYMIZER. LEFT IJ INTACT AND FLUSHED PATENT. PT REQUESTS TO AMBULATE AROUND THE FLOOR. PT ASKED TO WAIT UNTIL RESPIRATORY CAN BRING UP A PORTABLE OXYGEN TANK.
--- NOTE | 2019-01-26 20:20 | NUR ---
increased fio2 to 5l oxymizer. sats on 4lnc were 90%. sats on 5l oxymizer are 94%
--- NOTE | 2019-01-26 20:30 | NUR ---
PT PUT ON SUPPLEMENT 02 VIA SUPPLEMENTAL O2 TANK AT 5 LITERS. PT OOB IV STOPPED AT THIS TIME, PT ABLE TO AMBULATE STEADILY UP AND DOWN HALLWAY USING SUPPLEMENTAL O2.
--- NOTE | 2019-01-26 21:00 | NUR ---
PT IN BED FINGERSTICK IS 204, WILL PROVIDE APPROPRIATE COVERAGE (4UNITS OF HUMALOG). PT GIVEN KEPPRA PO FOR SEIZURES, ALSO PT GIVEN ORDERED SOLUMEDROL. PT C/O THAT IV SITE IS LEAKING AND IT SIMPSON. PT UNABLE TO RECEIVE IV CLINDAMYCIN AT THIS TIME DUE TO IV SITE ON LEFT EJ NO LONGER FLUSHING. MD GARCIA AND CHARGE NURSE MORGAN MADE AWARE. DR. GARCIA SAID TO TRY FOR AN IV SITE, IF NOT PT WILL NEED CENTRAL LINE, AND PT ALREADY SAID THAT HE DOESN'T WANT A CENTRAL LINE. WILL HAVE CHARGE NURSE MORGAN TRY FOR AN IV SITE.
[2019-01-26] MEDS ORDERED: INFLUENZA VIRUS VACCINE QUAD 0.5 ML SYR IMVAC PRN (21:05)
[2019-01-26] MEDS ORDERED: PNEUMOCOCCAL VACCINE 23 MCG/0.5 ML VIAL IMVAC PRN (21:05)
--- NOTE | 2019-01-26 21:10 | NUR ---
4 UNITS OF COVERAGE PROVIDED WITH HUMALOG. SQ ON RIGHT DELTOID.
--- NOTE | 2019-01-26 21:30 | NUR ---
CHARGE NURSE MORGAN ATTEMPTED ANOTHER IV INSERTION X2 WITH NO SUCCESSFUL ATTEMPTS. MORGAN SAID TO ASK ER STAFF IF THEY COULD GET ANOTHER IV SITE. WILL ENDORSE TO ER STAFF FOR ASSISTANCE.
--- NOTE | 2019-01-26 21:45 | NUR ---
LEFT SIDED EJ WAS TAKEN OUT. PRESSURE APPLIED PRESSURE BANDAGE APPLIED ON LEFT NECK SITE, UNTIL NO S/S OF BLEEDING NOTED.
--- NOTE | 2019-01-26 22:15 | NUR ---
ER STAFF, ALIN MC AND LILLI MC WERE ABLE TO ESTABLISH IV SITE ON LEFT F/A 22GUAGE. IV SITE INTACT AND FLUSHED PATENT. IV CLINDAMYCIN RUNNING ORDERED.
[2019-01-27] VITALS: BP 123/71
[2019-01-27] MEDS: CLINDAMYCIN PHOS 600MG/D5W PM 50 ML IV SCH ×2 (00:11→05:33)
[2019-01-27] MEDS: MORPHINE SULFATE 2 MG/ML SYR IVP PRN (00:17)
--- NOTE | 2019-01-27 00:30 | NUR ---
PT IN BED C/O GENERALIZED PAIN 06/09, GIVEN IVP MORPHINE, WILL MONITOR FOR EFFECT. LEVAQUIN HUNG ORDERED, V/S FOLLOWS T 98.4 P 82 R 18 B/P 123/71 02 95% ON 5 LITERS VIA OXIMIZER. ALL FALLS AND SEIZURE PRECAUTION IN PLACE.
[2019-01-27] MEDS: LEVOFLOXACIN 750 MG/D5W PREMIX 150 ML IV SCH (00:57)
--- NOTE | 2019-01-27 01:30 | NUR ---
PT ASLEEP NO S/S OF PAIN OR DISTRESS NOTED ALL FALLS AND SEIZURE PRECAUTIONS IN PLACE.
--- NOTE | 2019-01-27 02:40 | NUR ---
PT GIVEN ORDERED VANCOMYCIN. TROUGH LEVEL IS 10 , WITH IN THERAPEUTIC RANGE. PT SLEEPING NO S/S OF PAIN OR DISTRESS NOTED. ALL FALLS AND SEIZURE PRECAUTIONS IN PLACE.
[2019-01-27] MEDS ORDERED: VANCOMYCIN HCL 1,250 MG in NACL 0.9% 250 ML IV SCH (03:00)
[2019-01-27 04:00] VITALS: BP 125/64
--- NOTE | 2019-01-27 04:20 | NUR ---
PT IN BED NO S/S OF PAIN OR DISTRESS NOTED. V/S FOLLOWS T 98.7 P 80 R 18 B/P 125/64 02 96% WITH 5 LITERS VIA OXYMIZER.
--- NOTE | 2019-01-27 05:30 | NUR ---
PT GIVEN SCHEDULED SOLUMEDROL AND CLINDAMYCIN IV SITE ON LEFT F/A 22GUADE INTACT AND FLUSHED PATENT.
[2019-01-27] MEDS: methylPREDNISolone SS 125 MG/2 ML VIAL IVP SCH (05:34)
[2019-01-27] MEDS: BLOOD GLUCOSE MONITORING 1 DEV DEV FS SCH (06:30)
[2019-01-27] MEDS: INSULIN LISPRO SLIDING SCALE 100 UNITS/ML VIAL SUBQ PRN (06:43)
--- NOTE | 2019-01-27 07:00 | NUR ---
RECEIVED BEDSIDE REPORT FROM ICU NURSE. PT STABLE, AWAKE, AND ALERT AND ORIENTED X3. NO SIGNS OF DISTRESS NOTED. DENIES PAIN OR SOB. NO REDNESS, SWELLING, OR INFLAMMATION NOTED ON IV SITE. CALL PONCE WITHIN REACH. BED IN LOWEST POSITION, BED ALARM ON. SAFETY MEASURES IN PLACE. PLAN OF CARE REVIEWED. Addendum: 01/27/19 at 0748 by Kita Taylor RN EDIT: RECEIVED BEDSIDE REPORT FROM JESUSITA MORALES, NOT FROM ICU NURSE. PT ON 5L OXIMIZER.
[2019-01-27 07:06] LABS: BASOPHILS # (AUTO) 0.1 K/uL (0.00-0.22); BASOPHILS % (AUTO) 0.3 % (0.0-2.0); HEMATOCRIT 27.1 % (36-52); HEMOGLOBIN 8.8 g/dL (12.0-18.0); LYMPHOCYTES # (AUTO) 1.3 K/uL (2.0-11.5); LYMPHOCYTES % (AUTO) 5.3 % (20.5-51.1); MEAN CORPUSCULAR HEMOGLOBIN 25 pg (27-31); MEAN CORPUSCULAR HGB CONC 32 g/dL (33-37); MEAN CORPUSCULAR VOLUME 77.2 fL (80-94); MONOCYTES # (AUTO) 1.6 K/uL (0.8-1.0); MONOCYTES % (AUTO) 6.9 % (1.7-9.3); NEUTROPHILS # (AUTO) 20.9 K/uL (1.8-7.7); NEUTROPHILS % (AUTO) 87.5 % (42.2-75.2); PLATELET COUNT (AUTO) 435 K/uL (140-450); RED BLOOD CELL COUNT(AUTO) 3.51 MIL/uL (4.20-6.10); RED CELL DISTRIBUTION WIDTH 15.9 % (11.6-13.7); WHITE BLOOD COUNT (AUTO) 23.9 K/uL (4.8-10.8)
[2019-01-27] MEDS: ALBUTEROL SULFATE/IPRATROPIU 3 ML SOL IH SCH (07:14)
[2019-01-27 07:21] LABS: ANION GAP 13.7 (8-16); CARBON DIOXIDE 23.3 mmol/L (21-32); CREATININE 1.5 mg/dL (0.7-1.3)
[2019-01-27 07:23] LABS: MAGNESIUM 2.1 mg/dL (1.8-2.4); PHOSPHORUS 4.8 mg/dL (2.5-4.9)
--- NOTE | 2019-01-27 07:30 | NUR ---
REPORT GIVEN TO XENIA JEAN AT BEDSIDE, PT IN STABLE CONDITION.
[2019-01-27 08:00] VITALS: BP 120/62
--- NOTE | 2019-01-27 08:00 | NUR ---
VITAL SIGNS TAKEN, PT STABLE.
[2019-01-27] MEDS: LISINOPRIL 20 MG TAB PO SCH (09:00)
[2019-01-27] MEDS: levETIRAcetam 500 MG TAB PO SCH (09:00)
[2019-01-27] MEDS: LACTOBACILLUS RHAMNOSUS GG 1 EACH CAP PO SCH (09:00)
[2019-01-27] MEDS: THERAHONEY GEL 42.5 GM TP SCH (09:00)
--- NOTE | 2019-01-27 09:45 | NUR ---
PT WANTS TO LEAVE AMA. PT EDUCATED BY RN AND PHYSICIAN REGARDING ON CONSEQUENCES OF LEAVING AMA. PT VERBALIZED UNDERSTANDING, BUT STILL INSIST ON LEAVING. PT STATED, "EVERYONE IS NICE, BUT I CAN'T SIT STILL AND I WANT TO MOVE AROUND AND AMBULATE". PT WAS INSTRUCTED ON SAFETY PRECAUTIONS. PT WAS OBSERVED TO HAVE UNSTEADY GAIT. PHYSICIAN AND PATIENT SIGNED AMA FORM. PT TOOK ALL BELONGINGS. PT ESCORTED TO THE LOBBY AND PICKED UP BY FAMILY.
[2019-01-27] MEDS ORDERED: LEVO750T2 PO (09:59)
[2019-01-27] MEDS ORDERED: CLIN150C1 PO (09:59)
[2019-01-27] MEDS ORDERED: LACT10CA PO (09:59)
== END 2019-01-27 09:45 | disposition left against medical advice (07) | DRG 720 ==
LOC: MED 21:11 → MTU 22:24
PROVIDERS: ADMIT General Practice; ATTEND General Practice
PROC: 5A09357 Assistance with Respiratory Ventilation, Less than 24 Consecutive Hours, Continuous Positive Airway Pressure (ICD-10-PCS; principal; 2019-01-25)
DX: A41.9 Sepsis, unspecified organism (principal); J96.01 Acute respiratory failure with hypoxia; J69.0 Pneumonitis due to inhalation of food and vomit; E43 Unspecified severe protein-calorie malnutrition; I50.43 Acute on chronic combined systolic (congestive) and diastolic (congestive) heart failure; D68.59 Other primary thrombophilia; E11.65 Type 2 diabetes mellitus with hyperglycemia; E87.1 Hypo-osmolality and hyponatremia; L03.115 Cellulitis of right lower limb; I16.0 Hypertensive urgency; G40.909 Epilepsy, unspecified, not intractable, without status epilepticus; I10 Essential (primary) hypertension; E66.9 Obesity, unspecified; F11.10 Opioid abuse, uncomplicated; D64.9 Anemia, unspecified; D63.8 Anemia in other chronic diseases classified elsewhere; F19.10 Other psychoactive substance abuse, uncomplicated; L97.919 Non-pressure chronic ulcer of unspecified part of right lower leg with unspecified severity; R31.9 Hematuria, unspecified; Z53.21 Procedure and treatment not carried out due to patient leaving prior to being seen by health care provider; Z68.36 Body mass index [BMI] 36.0-36.9, adult; Z87.891 Personal history of nicotine dependence; Z96.652 Presence of left artificial knee joint; Z88.0 Allergy status to penicillin; Z59.0 Homelessness; Z91.19 Patient's noncompliance with other medical treatment and regimen
CPT/HCPCS: 36415; 71045; 71046; 76700; 76770; 80048; 80053; 80202; 80305; 81001; 82150; 82247; 82248; 82607; 82746; 82948; 83036; 83540; 83605; 83690; 83735; 83880; 84100; 84443; 84484; 85025; 85045; 85610; 85730; 87040; 87070; 87081; 87086; 87205; 87804; 92610; 93005; 93970; 94640; 94660; 96360; 96361; 99285; G0480; G0482; J0456; J1815; J1956; J2270; J2916; J2930; J3370; J3475; J3490; J7030; J7042; J7060; J7620; Q0092

== ENCOUNTER 2019-02-04 00:36 | Inpatient (IN) | payer MEDICAID ==
[~2019-02-04] VITALS: Ht 175.3 cm; Wt 128.8 kg
[~2019-02-04 00:36] MED LIST: CLIN150C1 PO; LACT10CA PO; LEVO750T2 PO
[2019-02-04 00:45] VITALS: BP 160/72
--- NOTE | 2019-02-04 00:45 | NUR ---
TO BED # 07 AMBULATORY, REPORT GIVEN TO MARCO MC
--- NOTE | 2019-02-04 00:55 | NUR ---
PT C/O WORSENING SOB SINCE LEAVING AMA FROM HERE "A FEW DAYS AGO". PT STATES SINCE LEAVING AMA HIS LEG SWELLING HAS GOTTEN WORSE. PT HAS BILAT LOWER EXTREMITY EDEMA +4, RESPIRATIONS, EVEN, SHALLOW/LABORED, TACHYPNEIC. BREATH SOUNDS DIMINISHED BILAT THROUGHOUT. 84% ON RA. CHEST PAIN, TIGHTNESS, NONRADIATING X 1 HR, 9/10. PT DIAPHORETIC. SKIN IS DRY, ONE DIABETIC ULCER NOTED ON RLE. BED IN LOW POSITION, PT PLACED ON 4LNC, BED LOCKED/SIDERAILS UP X 1.
--- NOTE | 2019-02-04 00:57 | NUR ---
X-Ray at bedside.
--- NOTE | 2019-02-04 01:02 | NUR ---
Dr. Ferrari evaluating patient at bedside.
--- NOTE | 2019-02-04 01:24 | NUR ---
REPORT GIVEN TO DONATO MC
--- NOTE | 2019-02-04 01:37 | NUR ---
Pt refused labs. Dr. Ferrari made aware.
[2019-02-04] MEDS ORDERED: NACL 0.9% 1,000 ML IV ONE (01:45)
--- NOTE | 2019-02-04 01:55 | NUR ---
Pt okay with getting an EJ. Dr. Ferrari explained to patient pt will be admitted into hospital. Pt agreed.
--- NOTE | 2019-02-04 02:00 | NUR ---
EJ inserted to left neck. Patient tolerated well. Unable to draw labs.
--- NOTE | 2019-02-04 02:08 | NUR ---
Lab at bedside for blood draw.
--- NOTE | 2019-02-04 02:13 | NUR ---
Lab unable to draw labs at this time. Dr. Ferrari aware.
--- NOTE | 2019-02-04 02:26 | NUR ---
Patient noted to have existing wounds upon arrival to ER. Photos taken of wound and placed in chart.
--- NOTE | 2019-02-04 02:55 | NUR ---
Dr. Ferrari at bedside for blood draw.
[2019-02-04] MEDS ORDERED: LEVOFLOXACIN 500 MG/D5W PREMIX 100 ML IV ONE (03:05)
[2019-02-04] MEDS ORDERED: DOCUSATE SODIUM 100 MG GELCAP PO PRN (03:10)
[2019-02-04] MEDS ORDERED: cloNIDine 0.1 MG TAB PO PRN (03:10)
[2019-02-04] MEDS ORDERED: traZODone 50 MG TAB PO PRN (03:10)
[2019-02-04] MEDS ORDERED: DEXTROSE 50% 50 ML SYR IVP PRN (03:10)
[2019-02-04 03:18] LABS: BASOPHILS # (AUTO) 0.2 K/uL (0.00-0.22); BASOPHILS % (AUTO) 0.7 % (0.0-2.0); EOSINOPHILS # (AUTO) 0.6 K/uL (0-0.4); EOSINOPHILS % (AUTO) 2.5 % (0.0-4.0); HEMATOCRIT 25.7 % (36-52); HEMOGLOBIN 8.4 g/dL (12.0-18.0); MEAN CORPUSCULAR HEMOGLOBIN 25 pg (27-31); MEAN CORPUSCULAR HGB CONC 33 g/dL (33-37); MEAN CORPUSCULAR VOLUME 76.7 fL (80-94); MONOCYTES # (AUTO) 1.9 K/uL (0.8-1.0); MONOCYTES % (AUTO) 8.3 % (1.7-9.3); NEUTROPHILS # (AUTO) 18.1 K/uL (1.8-7.7); NEUTROPHILS % (AUTO) 79.9 % (42.2-75.2); PLATELET COUNT (AUTO) 402 K/uL (140-450); RED BLOOD CELL COUNT(AUTO) 3.35 MIL/uL (4.20-6.10); RED CELL DISTRIBUTION WIDTH 16.1 % (11.6-13.7)
[2019-02-04 03:33] LABS: LYMPHOCYTES % (AUTO) 8.6 % (20.5-51.1); WHITE BLOOD COUNT (AUTO) 22.7 K/uL (4.8-10.8)
[2019-02-04 03:34] LABS: ACETAMINOPHEN < 0.5 ug/ml (10-30); PROTHROMBIN TIME 10.6 secs (10.8-13.4)
--- NOTE | 2019-02-04 03:34 | NUR ---
Patient will be admitted to care of Dr. Miguel. Admited to TELE. Patient transferred to Tele with cardiac monitoring and gurney accompanied by EMT Janusz and myself. Pt transported on 4L oxygen via nasal canula. Will go to room 110-A. Belongings list completed. Report given to [facility]. Transfer for care at ths time.
--- NOTE | 2019-02-04 03:40 | NUR ---
ADMITTED THIS 48 YEAR OLD MALE FROM ER PER [facility] WITH CC OF SOB, AMBULATED TO BED WITH STEADY GAIT, ASSESSMENT DONE, AAOX4, VITAL SIGNS TAKEN, BP ELEVATED, WILL RECHECKED, ASYMPTOMATIC, DENIES ANY PAIN, NO SOB NOTED, LEVAQUIN IVPB STARTED FROM ER INFUSING WELL VIA LEFT EJ IV LINE, RT LEG OPEN WOUND NOTED, WOUND CLEANSED WITH NORMAL SALINE AND COVERED WITH COMPOSITE DRESSING, PLAN OF CARE DISCUSS, SAFETY MEASURES IN PLACE, CALL LIGHT WITHIN REACH.
[2019-02-04 03:47] LABS: ALBUMIN 1.8 g/dL (3.4-5.0); ANION GAP 10.4 (8-16); CARBON DIOXIDE 28.3 mmol/L (21-32); CREATININE 1.1 mg/dL (0.7-1.3); POTASSIUM 4.7 mmol/L (3.5-5.1); TOTAL BILIRUBIN 0.5 mg/dL (0.0-1.0)
[2019-02-04 03:50] VITALS: BP 166/97
[2019-02-04] MEDS ORDERED: AZITHROMYCIN 500 MG in DEXTROSE 5% 250 ML IV SCH (04:00)
[2019-02-04 04:04] LABS: MAGNESIUM 1.6 mg/dL (1.8-2.4); PHOSPHORUS 3.1 mg/dL (2.5-4.9)
[2019-02-04] MEDS ORDERED: MAG SULF 2000 MG/WATER PREMIX 50 ML IV SCH (04:45)
[2019-02-04] MEDS ORDERED: AZITHROMYCIN 500 MG INJ VIAL IV ONE (04:56)
[2019-02-04] MEDS: NACL 0.9% 1,000 ML IV SCH ×2 (05:01→19:47)
--- NOTE | 2019-02-04 05:10 | NUR ---
BP OF 164/86, ASYMPTOMATIC, CLONIDINE 0.1MG PO ORDERED BY DR BATISTA, MONITORED CLOSELY.
[2019-02-04] MEDS ORDERED: INFLUENZA VIRUS VACCINE QUAD 0.5 ML SYR IMVAC PRN (05:30)
[2019-02-04] MEDS ORDERED: PNEUMOCOCCAL VACCINE 23 MCG/0.5 ML VIAL IMVAC PRN (05:30)
--- NOTE | 2019-02-04 06:00 | NUR ---
BLOOD SUGAR CHECKED WITH 148 RESULT, NO COVERAGE NEEDED, MAG RIDER 2GM IVPB INFUSING WELL AT THIS TIME.
[2019-02-04] MEDS: BLOOD GLUCOSE MONITORING 1 DEV DEV FS SCH ×4 (06:43→21:26)
--- NOTE | 2019-02-04 06:43 | NUR ---
BP RECHECKED-137/80, HR-94, WOUND CULTURE OBTAINED AND SENT TO LAB, PT IN NO DISTRESS NOTED, MONITORED CLOSELY.
--- NOTE | 2019-02-04 07:19 | NUR ---
PT SLEEPING, EASILY AROUSABLE, NO DISTRESS NOTED, REPORT GIVEN TO JESUSITA HAGEN FOR CONTINUITY OF CARE.
--- NOTE | 2019-02-04 07:20 | NUR ---
RECEIVED HANDOFF REPORT FROM FORESTRY INSTRUCTOR NURSE PT IS ASLEEP IN BED. PT APPEARS STABLE WILL CONTINUE TO MONITOR.
[2019-02-04 07:55] LABS: APPEARANCE,URINE SL CLOUDY (CLEAR); BILIRUBIN,URINE NEGATIVE (NEGATIVE); BLOOD, URINE 3+ (NEGATIVE); COLOR,URINE BROWN (YELLOW); LEUKOCYTE ESTERASE ,URINE NEGATIVE (NEGATIVE); NITRITE, URINE NEGATIVE (NEGATIVE); PH,URINE 6.5 (5.0-9.0); UGLUCOSE NEGATIVE (NEGATIVE)
--- NOTE | 2019-02-04 08:02 | NUR ---
AWAKE AND ALERT VERBALLY RESPONSIVE NO SOB NOTED PATIENT WITH BREAKFAST TRAY AT THIS TIME PIPE FITTER GAS PIPE TO ATTEMPT [facility] THERAPY AND RESPIRATORY DRUG AT A LATER TIME
[2019-02-04 08:10] VITALS: BP 142/77
[2019-02-04 08:15] LABS: BARBITURATE, URINE NEG. ng/ml (NEG <=200); BENZODIAZEPINE, URINE NEG. ng/mL (NEG <=200); CANNABINOID, URINE NEG. ng/mL (NEG <=50); COCAINE, URINE NEG. ng/mL (NEG <=300); OPIATE, URINE POS. ng/mL (NEG <=2000); PHENCYCLIDINE SCREEN,URINE NEG. ng/mL (NEG <=25)
[2019-02-04 08:17] LABS: RBC,URINE TOO NUMEROUS TO COUN /HPF (0-5); WBC,URINE 16-25 (MOD) /HPF (0-5)
[2019-02-04] MEDS: LISINOPRIL 5 MG TAB PO SCH (08:30)
[2019-02-04] MEDS: ASPIRIN 81 MG TAB.CHEW PO SCH (08:30)
[2019-02-04] MEDS: LACTOBACILLUS RHAMNOSUS GG 1 EACH CAP PO SCH (08:30)
--- NOTE | 2019-02-04 08:30 | NUR ---
PT AWAKE IN BED EATING BREAKFAST. BREATHING IS LABORED, PT IS ON 4L NASAL CANULA. BLE EDEMA 3+. A/OX4 IV IS IN THE LEFT IJ 20G NORMAL SALINE RUNNING AT 60MLS/HR. IV FLUSHED.
[2019-02-04] MEDS: levETIRAcetam 500 MG TAB PO SCH ×2 (08:31→20:17)
[2019-02-04] MEDS: FUROSEMIDE 20 MG/2 ML VIAL IVP SCH (08:31)
[2019-02-04 08:49] LABS: BASOPHILS # (AUTO) 0.1 K/uL (0.00-0.22); BASOPHILS % (AUTO) 0.5 % (0.0-2.0); EOSINOPHILS # (AUTO) 0.4 K/uL (0-0.4); EOSINOPHILS % (AUTO) 1.7 % (0.0-4.0); HEMATOCRIT 25.8 % (36-52); HEMOGLOBIN 8.4 g/dL (12.0-18.0); LYMPHOCYTES # (AUTO) 1.8 K/uL (2.0-11.5); MEAN CORPUSCULAR HEMOGLOBIN 25 pg (27-31); MEAN CORPUSCULAR HGB CONC 32 g/dL (33-37); MEAN CORPUSCULAR VOLUME 76.7 fL (80-94); MONOCYTES # (AUTO) 1.8 K/uL (0.8-1.0); NEUTROPHILS % (AUTO) 81.8 % (42.2-75.2); PLATELET COUNT (AUTO) 437 K/uL (140-450); RED BLOOD CELL COUNT(AUTO) 3.37 MIL/uL (4.20-6.10); RED CELL DISTRIBUTION WIDTH 16.1 % (11.6-13.7); WHITE BLOOD COUNT (AUTO) 22.1 K/uL (4.8-10.8)
[2019-02-04 09:24] LABS: CREATININE 1.1 mg/dL (0.7-1.3); POTASSIUM 4.1 mmol/L (3.5-5.1)
[2019-02-04 09:25] LABS: PHOSPHORUS 3.3 mg/dL (2.5-4.9)
[2019-02-04 09:27] LABS: ANION GAP 10.7 (8-16); CARBON DIOXIDE 27.4 mmol/L (21-32)
[2019-02-04] MEDS: ALBUTEROL SULFATE/IPRATROPIU 3 ML SOL IH SCH ×3 (09:30→19:19)
--- NOTE | 2019-02-04 09:30 | NUR ---
SATURATION 95% ON SUPPLEMENTAL OXYGEN AT 4 LPM VIA NC POST HHN THERAPY TITRATED FIO2 TO 3 LPM XIAO/JESUSITA NOTIFIED
--- NOTE | 2019-02-04 09:35 | NUR ---
RT AT PT BEDSIDE, RT TOOK PT DOWN TO 3L INSTEAD OF 4L NASAL CANULA. WILL CONTINUE TO MONITOR PT SPO2 SATURATION AND PT FOR DIFFICULTY BREATHING. PT URINATED 350ML URINE IS NEGOTIATOR THAN LAST VOID. LESS RED/PINK TINT TO IT.
--- NOTE | 2019-02-04 10:33 | NUR ---
PT ASLEEP IN BED, NO COMPLAINTS OF PAIN. NOTABLE CHEST RISE AND FALL. WILL CONTINUE TO MONITOR.
--- NOTE | 2019-02-04 11:56 | NUR ---
PT BLOOD GLUCOSE FINGERSTICK 117. NO INSULIN GIVEN. EMPTIED PT URINAL 450ML IN URINAL. PT FEEL ASLEEP AGAIN AFTER FINGER STICK GLUCOSE CHECK. PTS SPO2 WAS 95% PT IS TOLERATING 3L NASAL CANULA WELL. PT HAD NO COMPLAINTS OF DIFFICULTY BREATHING OR PAIN. PT IV IS INFUSING WELL. WILL CONTINUE TO MONITOR.
[2019-02-04 12:00] VITALS: BP 131/69
--- NOTE | 2019-02-04 13:56 | NUR ---
PT ASLEEP IN BED. NOTABLE CHEST RISE AND FALL. BED IN LOWEST AND LOCKED POSITION. IV INFUSING NS AT 60ML/HR. IV SITE IS CLEAN AND NO SIGNS OF INFILTRATION. PT APPEARS IN NO APPARENT DISTRESS. WILL CONTINUE TO MONITOR.
--- NOTE | 2019-02-04 14:30 | NUR ---
PT FINGERSTICK GLUCOSE 138 NO INSULIN COVERAGE NEEDED FOLLOWED PER SLIDING SCALE. PT PT IS 107/65 PT BREATHING IS LESS LABORED SINCE THIS MORNING. PT IS ASLEEP IN BED WITH NO SIGNS OF DISTRESS. PTS O2 SAT IS 95% ON 3L NASAL CANULA. IV IS INFUSING NS AT 60MLS/HR. NO SIGNS OF INFILTRATION. WILL CONTINUE TO MONITOR.
[2019-02-04 16:10] VITALS: BP 107/65
--- NOTE | 2019-02-04 16:30 | NUR ---
PT ASLEEP IN BED NO SIGNS OF DISTRESS, NOTABLE CHEST RISE AND FALL. IV INFUSING AT 60MLS/HR. NO COMPLAINTS OF PAIN. WILL CONTINUE TO MONITOR.
--- NOTE | 2019-02-04 18:17 | NUR ---
PT AWAKE AMBULATING TO THE REST ROOM. PROVIDED LINEN CHANGE. WHILE PT IS IN THE BATHROOM
--- NOTE | 2019-02-04 18:18 | NUR ---
SPOKE WITH PT DAUGHTER SOURAV ON THE PHONE [phone] SHE SAID SHE WOULD BE BY EITHER TODAY OR TOMORROW.
--- NOTE | 2019-02-04 18:51 | NUR ---
PT IS IN BED. IV FLUID NS RUNNING AT 60MLS/HR. IV IS PATENT WITH NO SIGNS OF INFILTRATION. NASAL CANULA AT 3L. PT IS STABLE WITH NO SIGNS OF DISTRESS. ALL SAFETY MEASURES ARE IN PLACE.
--- NOTE | 2019-02-04 19:09 | NUR ---
endorsed steward/stewardess night nurse at patient bedside. pt is in bed resting pt appears in stable condition and in no apparent distress. IV NS infusing at 60mls/hr
--- NOTE | 2019-02-04 19:10 | NUR ---
RECEIVED PT ON BED, AAOX4, VITAL SIGNS STABLE, DENIES ANY PAIN, NO SOB NOTED, 93% ON 4L NASAL CANNULA, RT DAVID MADE AWARE AND STATED THAT'S OK, IVF INFUSING WELL BUT POSITIONAL VIA LT EJ IV LINE, EDEMA NOTED TO BLE MORE TO THE RIGHT THAN LEFT, RT LEG WOUND DRESSING DRY AND INTACT, PLAN OF CARE DISCUSS, SAFETY MEASURE IN PLACE, CALL LIGHT WITHIN REACH.
[2019-02-04] MEDS: BUDESONIDE 0.5 MG/2 ML NEBU INH SCH (19:20)
[2019-02-04 20:00] VITALS: BP 120/72
[2019-02-04] MEDS: ATORVASTATIN 20 MG TAB PO SCH (20:17)
[2019-02-04] MEDS: INSULIN LISPRO SLIDING SCALE 100 UNITS/ML VIAL SUBQ PRN (20:22)
--- NOTE | 2019-02-04 20:25 | NUR ---
BLOOD SUGAR CHECKED WITH 184 RESULT, COVERAGE GIVEN, SNACK PROVIDED, DUE MEDS GIVEN, ALL NEEDS ATTENDED, PT STATED HAD BM EARLIER IN THE DAY, REMINDED PT TO COLLECT STOOL FOR TEST WITH CONTAINER IN THE BATHROOM, VERBALIZED UNDERSTANDING, ALL NEEDS ATTENDED.
--- NOTE | 2019-02-04 22:15 | NUR ---
PT VOIDED FREELY PER URINAL WITH 200ML PAMELA COLORED URINE, MONITORED CLOSELY.
[2019-02-05] VITALS: BP 122/65
--- NOTE | 2019-02-05 | NUR ---
PT SLEEPING, EASILY AROUSABLE, VITAL SIGNS STABLE, DENIES ANY PAIN, NO SOB NOTED, IVF INFUSING WELL, CONTINUE TO MONITOR CLOSELY.
[2019-02-05 04:00] VITALS: BP 129/75
--- NOTE | 2019-02-05 04:00 | NUR ---
PT SLEEPING, EASILY AROUSABLE, VITAL SIGNS STABLE, NO DISTRESS NOTED, PT VOIDED 400ML DARK PAMELA URINE, MONITORED CLOSELY.
[2019-02-05] MEDS: NACL 0.9% 1,000 ML IV SCH (04:11)
--- NOTE | 2019-02-05 06:10 | NUR ---
BLOOD SUGAR CHECKED WITH 107 RESULT, NO SOB NOTED, PT WENT BACK TO SLEEP, NO SEIZURE EPISODE NOTED THE WHOLE SHIFT, MONITORED CLOSELY.
[2019-02-05] MEDS: BLOOD GLUCOSE MONITORING 1 DEV DEV FS SCH ×4 (06:32→21:00)
[2019-02-05 06:37] LABS: BASOPHILS # (AUTO) 0.1 K/uL (0.00-0.22); BASOPHILS % (AUTO) 0.5 % (0.0-2.0); EOSINOPHILS # (AUTO) 0.4 K/uL (0-0.4); EOSINOPHILS % (AUTO) 2.3 % (0.0-4.0); HEMATOCRIT 24.7 % (36-52); HEMOGLOBIN 8.3 g/dL (12.0-18.0); LYMPHOCYTES # (AUTO) 2.1 K/uL (2.0-11.5); LYMPHOCYTES % (AUTO) 11.3 % (20.5-51.1); MEAN CORPUSCULAR HEMOGLOBIN 26 pg (27-31); MEAN CORPUSCULAR HGB CONC 33 g/dL (33-37); MEAN CORPUSCULAR VOLUME 76.3 fL (80-94); MONOCYTES # (AUTO) 1.5 K/uL (0.8-1.0); MONOCYTES % (AUTO) 8.3 % (1.7-9.3); NEUTROPHILS # (AUTO) 14.4 K/uL (1.8-7.7); NEUTROPHILS % (AUTO) 77.6 % (42.2-75.2); PLATELET COUNT (AUTO) 441 K/uL (140-450); RED BLOOD CELL COUNT(AUTO) 3.24 MIL/uL (4.20-6.10); RED CELL DISTRIBUTION WIDTH 15.8 % (11.6-13.7); WHITE BLOOD COUNT (AUTO) 18.6 K/uL (4.8-10.8)
[2019-02-05 06:44] LABS: ANION GAP 9.1 (8-16); CARBON DIOXIDE 28.5 mmol/L (21-32); CREATININE 1.3 mg/dL (0.7-1.3); POTASSIUM 4.6 mmol/L (3.5-5.1)
[2019-02-05 06:48] LABS: MAGNESIUM 2.1 mg/dL (1.8-2.4); PHOSPHORUS 4.4 mg/dL (2.5-4.9)
[2019-02-05] MEDS: ALBUTEROL SULFATE/IPRATROPIU 3 ML SOL IH SCH ×3 (06:54→19:54)
[2019-02-05] MEDS: BUDESONIDE 0.5 MG/2 ML NEBU INH SCH ×2 (06:55→19:59)
--- NOTE | 2019-02-05 07:17 | NUR ---
PT SLEEPING, NO SIGNS OF DISTRESS, REPORT GIVEN TO JSEUSITA VASQUEZ FOR CONTINUITY OF CARE.
--- NOTE | 2019-02-05 07:18 | NUR ---
RECEIVED REPORT FROM NOTEREADER NURSE. PATIENT LYING DOWN IN BED SLEEPING, AROUSABLE BY VOICE. NO DISTRESS NOTED. DENIES ANY PAIN AT THIS TIME. AAOX3, CALM, COOPERATIVE, SKIN COLOR APPROPRIATE TO ETHNICITY, WARM TO TOUCH. RIGHT LE WOUND NOTED, DRESSING IS DRY AND INTACT. RESPIRATIONS EVEN, UNLABORED, ON O2 2L/MIN VIA NC. IV SITE INTACT, PATENT, AND INFUSING IVF PER MD ORDERS. REVIEWED PLAN OF CARE WITH PATIENT. PATIENT VERBALIZED UNDERSTANDING. SAFETY MEASURES IN PLACE, CALL LIGHT WITHIN REACH. WILL CONTINUE TO MONITOR.
[2019-02-05 08:00] VITALS: BP 144/76
--- NOTE | 2019-02-05 08:23 | NUR ---
PATIENT HAS BEEN SCREENED AND CATEGORIZED HIGH NUTRITION RISK. PATIENT WILL BE SEEN WITHIN 1-2 DAYS OF ADMISSION. 02/05/[address]
[2019-02-05] MEDS: LACTOBACILLUS RHAMNOSUS GG 1 EACH CAP PO SCH (09:02)
[2019-02-05] MEDS: ASPIRIN 81 MG TAB.CHEW PO SCH (09:02)
[2019-02-05] MEDS: AZITHROMYCIN 250 MG TAB PO SCH (09:02)
[2019-02-05] MEDS: levETIRAcetam 500 MG TAB PO SCH ×2 (09:03→20:52)
[2019-02-05] MEDS: LISINOPRIL 5 MG TAB PO SCH (09:03)
[2019-02-05] MEDS: FUROSEMIDE 20 MG/2 ML VIAL IVP SCH (09:03)
--- NOTE | 2019-02-05 09:27 | NUR ---
PATIENT LYING DOWN IN BED SLEEPING, AROUSABLE BY VOICE. NO DISTRESS NOTED. DENIES ANY PAIN. SCHEDULED MEDICATIONS DUE GIVEN. WILL CONTINUE TO MONITOR.
--- NOTE | 2019-02-05 11:26 | NUR ---
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 WOUND CARE EVALUATION DONE WITH THIS 48 Y/O MALE ADMITTED TO [facility] WITH PNA. PT. REFUSED TO HAVE HEAD TO TOE SKIN ASSESSMENT, ONLY ALLOW TO ASSESS BILATERAL FEET. PLAN OF CARE DISCUSSED WITH PT. AND PRIMARY RN. PT. VERBALIZES UNDERSTANDING. INTEGUMENTARY: -RIGHT LOWER LATERAL LEG SKIN ALTERATION WITH PARTIAL THICKNESS SKIN LOSS, 4X2X0.2CM WOUND BED IS PINK, MOIST ,NO ODOR, WOUND EDGE FLAT, NAGI-WOUND SKIN DRY AND INTACT, NO ERYTHEMA. -DRY , THICK CALLUS TO BILATERAL HEELS WITH FUNGAL LIKE TOE NAILS X 10 TOES, SKIN INTACT RECOMMENDATIONS: -CLEANSE RIGHT LOWER LATERAL LEG SKIN ALTERATION WITH NS. PAT DRY, APPLY SILVASORB GEL AND COVER WITH ISLAND DRESSING QD AND PRN IF SOILING -KEEP BILATERAL FEET DRY AND CLEAN AT ALL TIMES. RECOMMENDATIONS DISCUSSED WITH PRIMARY RN PLEASE CONTACT WOUND CARE NURSE FOR ANY QUESTIONS AND CHANGES IN SKIN CONDITION.
[2019-02-05 12:00] VITALS: BP 152/92
--- NOTE | 2019-02-05 12:00 | NUR ---
PATIENT LYING DOWN IN BED SLEEPING, AROUSABLE BY VOICE. NO DISTRESS NOTED. DENIES ANY PAIN. WILL CONTINUE TO MONITOR.
[2019-02-05] MEDS: GAUZE TP SCH (13:37)
--- NOTE | 2019-02-05 13:43 | NUR ---
ULTRASOUND OF KIDNEYS BEING DONE BY RADIOLOGIST AT BEDSIDE. WILL CONTINUE TO MONITOR.
--- NOTE | 2019-02-05 14:22 | NUR ---
PATIENT WENT TO CT VIA [facility], PATIENT AAO
--- NOTE | 2019-02-05 15:33 | NUR ---
PATIENT AGITATED AND SAYS "I'M HUNGRY, THE FOOD HERE IS NO GOOD". WANTS TO LEAVE AMA. NOTIFIED DR. GOVEA, DR. GOVEA TALKED TO PATIENT AND PATIENT DECIDES TO STAY IF HE CAN ORDER FOOD FROM OUTSIDE. PER DR. GOVEA, PATIENT ALLOWED TO ORDER FOOD OUTSIDE. WILL CONTINUE TO MONITOR.
--- NOTE | 2019-02-05 15:35 | NUR ---
02/05/19 RD INITIAL ASSESSMENT COMPLETED PLEASE REFER TO NUTRITION ASSESSMENT UNDER CARE ACTIVITY FOR ESTIMATED NUTRITIONAL NEEDS. 1. CONTINUE CCHO 60 GM DIET TOLERATED 2. RECOMMEND KYLE BID 3. PROVIDED NUTRITION EDUCATION AND RECOMMENDATIONS ON REDUCING SODIUM INTAKE 4. RD TO FOLLOW-UP 5-7 DAYS, LOW RISK PIERCE PATEL, LESLIE
[2019-02-05 16:00] VITALS: BP 144/78
--- NOTE | 2019-02-05 18:00 | NUR ---
PATIENT SITTING IN BED SLEEPING. CONDITION UNCHANGED. WILL CONTINUE TO MONITOR.
--- NOTE | 2019-02-05 19:35 | NUR ---
GAVE REPORT TO CASINO FLOOR PERSON NURSE FOR CONTINUITY OF CARE. PATIENT IN STABLE CONDITION.
--- NOTE | 2019-02-05 19:35 | NUR ---
RECEIVED REPORT FORM [facility] DAYSHIFT NURSE AT BEDSIDE FOR CONTINUITY OF CARE, PT IN STABLE CONDITION.
--- NOTE | 2019-02-05 19:54 | NUR ---
SATURATION 90% ON SUPPLEMENTAL OXYGEN AT 2 LPM VIA NC POST HHN THERAPY INCREASED FIO2 TO 3 LPM TO KEEP SATURATION GREATER THAN 92% Addendum: 02/05/19 at 2012 by Bjorn Onofre RT CARMEN/JESUSITA NOTIFIED OF INCREASED FIO2 TO 3 LPM VIA NC
--- NOTE | 2019-02-05 20:00 | NUR ---
PT IN BED SIDE RAILS UP X2, BED IN LOW POSITION. PT HAS N/S RUNNING AT 60MLS/HR VIA IJ. PT HAS 3LITERS N/C V/SAS FOLLOWS T 101.5 P 116 R 20 B/P 140/68 02 88% PT HAD 02 OFF. PT 02 BUMPED UP TO 4L N/C. PT GIVEN TYLENOL FOR INCREASED TEMP AND OFFERED COOLING MEASURES OF ICE PACKS. PT REFUSED ICE PACKS WAS GIVEN COOL WET CLOTH ON FOREHEAD.
[2019-02-05] MEDS: ATORVASTATIN 20 MG TAB PO SCH (20:52)
--- NOTE | 2019-02-05 21:00 | NUR ---
PT TEMP RETAKE WAS 100.1. PT SAID THAT HE WILL TAKE ICE PACKS 2 ICE PACKS PREPARED AND GIVEN TO PT UNDER ARMS. PT GIVEN DUE MEDS AT THIS TIME.
[2019-02-05] MEDS: ACETAMINOPHEN 325 MG TAB PO PRN (21:08)
--- NOTE | 2019-02-05 21:10 | NUR ---
PT F/S WAS 156, PT DECLINED THE 2 UNIT COVERAGE.
[2019-02-06] VITALS: BP 128/69
--- NOTE | 2019-02-06 00:45 | NUR ---
PT IN BED O2 WAS OFF PUT BACK ON PT. EJ IN PLACE RUNNING N/S AT 60. PT HOB UP 35%, V/S FOLLOWS T T 98.9 P 94 R 18 B/P 128/69 02 95 WITH 4 LITERS N/C.
--- NOTE | 2019-02-06 03:00 | NUR ---
PT SLEEPING NO S/S OF PAIN OR DISTRESS NOTED.
--- NOTE | 2019-02-06 06:00 | NUR ---
DR. GOVEA AT BEDSIDE , TOLD PT THAT US SCAN OF CHEST AND MEDIASTINUM , NEEDS TO BE RE-READ TO CONFIRM RESULTS WHICH WILL INDICATE IF HE WILL BE LEAVING TODAY OR NOT. PT VERBALIZED UNDERSTANDING.
[2019-02-06] MEDS: BLOOD GLUCOSE MONITORING 1 DEV DEV FS SCH ×4 (06:42→20:36)
--- NOTE | 2019-02-06 07:30 | NUR ---
REPORT GIVEN TO [facility] DAYSHIFT NURSE AT BEDSIDE FOR CONTINUITY OF CARE, PT INSTABLE CONDITION.
[2019-02-06 07:34] LABS: ANION GAP 11.9 (8-16); CARBON DIOXIDE 26.2 mmol/L (21-32); CREATININE 1.4 mg/dL (0.7-1.3); POTASSIUM 4.1 mmol/L (3.5-5.1)
--- NOTE | 2019-02-06 07:35 | NUR ---
RECEIVED PT FROM SWEEPER OPERATOR HIGHWAYS NURSE, CARMEN, PT IS AWAKE AND SEATED ON THE BED, CALL WITHIN REACH. PT WITH AN IV LINE ON THE LEFT IJ G.20, WITH NO IV FLUID INFUSING, PT IS ON O2 4L VIA NC AND RESPIRATION IS EVEN, PT DENIES PAIN AND NO SOB NOTED. WILL CONTINUE TO MONITOR PT.
[2019-02-06 07:45] LABS: BASOPHILS # (AUTO) 0.1 K/uL (0.00-0.22); BASOPHILS % (AUTO) 0.4 % (0.0-2.0); EOSINOPHILS # (AUTO) 0.2 K/uL (0-0.4); EOSINOPHILS % (AUTO) 1.2 % (0.0-4.0); HEMATOCRIT 26.3 % (36-52); HEMOGLOBIN 8.5 g/dL (12.0-18.0); LYMPHOCYTES # (AUTO) 1.6 K/uL (2.0-11.5); LYMPHOCYTES % (AUTO) 8.3 % (20.5-51.1); MEAN CORPUSCULAR HEMOGLOBIN 25 pg (27-31); MEAN CORPUSCULAR HGB CONC 32 g/dL (33-37); MEAN CORPUSCULAR VOLUME 76.4 fL (80-94); MONOCYTES # (AUTO) 1.7 K/uL (0.8-1.0); MONOCYTES % (AUTO) 8.7 % (1.7-9.3); NEUTROPHILS # (AUTO) 16.1 K/uL (1.8-7.7); NEUTROPHILS % (AUTO) 81.4 % (42.2-75.2); PLATELET COUNT (AUTO) 464 K/uL (140-450); RED BLOOD CELL COUNT(AUTO) 3.44 MIL/uL (4.20-6.10); RED CELL DISTRIBUTION WIDTH 15.8 % (11.6-13.7); WHITE BLOOD COUNT (AUTO) 19.8 K/uL (4.8-10.8)
[2019-02-06] MEDS: ALBUTEROL SULFATE/IPRATROPIU 3 ML SOL IH SCH ×3 (07:45→18:14)
[2019-02-06] MEDS: BUDESONIDE 0.5 MG/2 ML NEBU INH SCH ×2 (07:54→18:14)
[2019-02-06 08:00] VITALS: BP 121/50
[2019-02-06] MEDS: levETIRAcetam 500 MG TAB PO SCH ×2 (10:22→20:48)
[2019-02-06] MEDS: LACTOBACILLUS RHAMNOSUS GG 1 EACH CAP PO SCH (10:22)
[2019-02-06] MEDS: ASPIRIN 81 MG TAB.CHEW PO SCH (10:22)
[2019-02-06] MEDS: AZITHROMYCIN 250 MG TAB PO SCH (10:23)
[2019-02-06] MEDS: LISINOPRIL 5 MG TAB PO SCH (10:23)
[2019-02-06] MEDS: FUROSEMIDE 20 MG/2 ML VIAL IVP SCH (10:23)
--- NOTE | 2019-02-06 10:45 | NUR ---
PT'S IV LINE WAS OUT OF THE VEIN AND WAS REMOVED NOW, PT REFUSED TO HAVE ANOTHER IV LINE RE-INSERTED NOW.
--- NOTE | 2019-02-06 11:00 | NUR ---
A NEW IN LINE WAS RE-INSERTED TO PT ON THE RT FA G.20.
--- NOTE | 2019-02-06 11:39 | NUR ---
PT IS AWAKE AND FAMILY ON THE BEDSIDE, BLOOD GLUCOSE CHECKED DONE AND RESULT IS 126 AND NO INSULIN COVERAGE NEEDED. WILL MONITOR PT.
[2019-02-06] MEDS: KETOROLAC 15 MG/ML VIAL IVP PRN ×2 (12:09→21:59)
[2019-02-06] MEDS: GAUZE TP SCH (13:00)
--- NOTE | 2019-02-06 13:52 | NUR ---
CHANGE PT TO 3L OXYMIZER PT WAS 87-88 ON 4L N\C SPO2 NOW 93
[2019-02-06 16:00] VITALS: BP 150/76
--- NOTE | 2019-02-06 16:36 | NUR ---
INCREASE FIO2 TO 6 L OXYMIZER [id number] PT REFUSES VENTURI MASK PT STATES LONG SMOKING HX
--- NOTE | 2019-02-06 17:26 | NUR ---
PT IS OFF THE UNIT NOW FOR A CT OF ABDOMEN AND PELVIS WITH CONTRAST.
--- NOTE | 2019-02-06 18:05 | NUR ---
PT IS BACK TO ROOM NOW AND COMPLAINING OF SOB, RT WAS CALLED AND PT VITAL SIGNS WAS CHECKED, BP IS 168/97, PULSE IS 115, O2 SATURATION IS AT 89%, INFORMED DR. TOBIAS OF PT'S VITAL SIGNS RESULT.
--- NOTE | 2019-02-06 18:10 | NUR ---
PT IS HAVING BREATHING TREATMENT NOW.
--- NOTE | 2019-02-06 18:30 | NUR ---
RN CALLED RT REGARDING PATIENT APPEARED TO BE SHORTNESS OF BREATH BASED ON DECREASED SATURATION. PATIENT SPO2 DECREASED TO 82 HEART RATE 120BPM. RT ADMINISTERED BREATHING TX AND PATIENT RESPONDED WELL AND SATURATION SPO2 INCREASED TO 94 HEART RATE 110. PATIENT WILL BE MONITORED CLOSELY BY RT AND RN AND DOCTOR
--- NOTE | 2019-02-06 19:30 | NUR ---
ENDORSED PT TO CHAIR LIFT OPERATOR NURSEDACIA FOR CONTINUITY OF CARE. PT IS STABLE AT THIS TIME.
--- NOTE | 2019-02-06 19:31 | NUR ---
RECEIVED BEDSIDE REPORT FROM [facility]. PT IS AAOX4. RESPIRATIONS ARE EQUAL BUT LABORED. PER RN PT RECEIVED BREATHING TREATMENT 1 HR AGO. PT ON OXIMIZER 10L VS: 172/86 HR 124 88% ON 10L O2. WHEEZING HEARD MITCH. CALLED RT FOR BREATHING TREATMENT. DR TOBIAS AWARE OF PTS B/P AND HR AND O2 SAT. PT WITH IV ON R FA 20G INFUSING NS AT 60ML/H. MITCH PITTING EDEMA. LEGS ELEVATED. PT USES URINAL URINE IS RED/BROWN. PER RN PT HAD CONTRAST CT OF ABDOMEN. PT WITH DRESSING ON R LEG. PLAN OF CARE DISCUSSED WITH PT. SAFETY MEASURES ARE IN PLACE. ON SEIZURE PRECAUTION. CALL LIGHT WITHIN REACH.
--- NOTE | 2019-02-06 20:20 | NUR ---
PT ASKED RT FOR A SYRINGE TO DO HEROIN. PAGED SECURITY AND DR TOBIAS. SECURITY UNABLE TO SEARCH PTS BELONGINGS D/T PT IS NOT ON A [address] TOBIAS NEW ORDER FOR MORPHINE. WILL CONTINUE TO MONITOR. PT ON BREATHING TREATMENT. IN STABLE CONDITION.
--- NOTE | 2019-02-06 20:43 | NUR ---
ADMINISTERED ORDERED MORPHINE. PT REFUSED OTHER DUE MEDICATIONS. EDUCATED PT ON RISK OF NOT TAKING MEDICATIONS ESPECIALLY KEPPRA. PT VERBALIZED UNDERSTANDING. STATES, "I JUST WANT HEROIN." CALL LIGHT WITHIN REACH. WILL CONTINUE TO MONITOR. SAFETY MEASURES ARE IN PLACE.
[2019-02-06] MEDS: ATORVASTATIN 20 MG TAB PO SCH (20:48)
[2019-02-06] MEDS: INSULIN LISPRO SLIDING SCALE 100 UNITS/ML VIAL SUBQ PRN (20:49)
[2019-02-06] MEDS ORDERED: MORPHINE SULFATE 2 MG/ML SYR ONE (20:50)
[2019-02-06] MEDS ORDERED: MORPHINE SULFATE 2 MG/ML SYR IVP SCH (21:00)
--- NOTE | 2019-02-06 22:03 | NUR ---
PT BEGAN YELLING, "NURSE HELP ME I NEED MORPHINE IM IN PAIN." WALKED IN PT REMOVED OXIMIZER AND IS DIAPHORETIC. O2 90% ON 10L HR 134. DR TOBIAS MADE AWARE AND IN ROOM TO SEE PT. ADMINISTERED TORADOL WILL PUT IN NEW ORDER. SAFETY MEASURES ARE IN PLACE. WILL CONTINUE TO MONITOR
[2019-02-06] MEDS ORDERED: MORPHINE SULFATE 4 MG/ML SYR IVP SCH (22:30)
[2019-02-06] MEDS ORDERED: VANCOMYCIN PER PHARMACY MC PRN (22:55)
--- NOTE | 2019-02-06 23:03 | NUR ---
PT IS SLEEPING COMFORTABLY IN BED. OXIMIZER ON AT 10L O2, O2 SAT 94%. SAFETY MEASURES ARE IN PLACE. WILL CONTINUE TO MONITOR.
[2019-02-07] VITALS (17 sets, daily range): BP systolic 141–182; BP diastolic 77–110
--- NOTE | 2019-02-07 00:19 | NUR ---
VITAL SIGNS ARE FOLLOWIN/77 HR 107, 82 ON 10L OXIMIZER, RR 20. OBTAIN INFLUENZA A&B SWAB. ALL SAFETY MEASURES ARE IN PLACE. CALL LIGHT IS WITHIN REACH. WILL CONTINUE TO MONITOR.
[2019-02-07] MEDS ORDERED: DEXTROSE 5% IV SCH (00:20)
[2019-02-07] MEDS ORDERED: VANCOMYCIN IV SCH (00:20)
[2019-02-07] MEDS ORDERED: VANCOMYCIN 500 MG VIAL ONE (00:48)
--- NOTE | 2019-02-07 02:15 | NUR ---
PT IS SLEEPING COMFORTABLY IN BED. RESPIRATIONS ARE EQUAL AND UNLABORED. CALL LIGHT IS WITHIN REACH. SAFETY MEASURES ARE IN PLACE.
--- NOTE | 2019-02-07 04:15 | NUR ---
PT IS SLEEPING COMFORTABLY IN BED. ROUSED BY NAME BUT SEEMS DROWSY. VITAL SIGNS ARE FOLLOWIN/82 HR 102 94%ON 10L O2 VIA OXIMIZER, RR 22. ALL SAFETY MEASURES ARE IN PLACE. CALL LIGHT WITHIN REACH. WILL CONTINUE TO MONITOR.
--- NOTE | 2019-02-07 04:29 | NUR ---
PATIENT KEEPS TAKING OFF HIS OXYMIZER WHILE HE IS SLEEPING AND IT IS CAUSING HIS SATURATION TO DECREASE. PATIENT IS PLACED ON 10L OXYMIZER AND THE GOAL IS TO KEEP SATURATION ABOVE 88 AND EVENTUALLY TITRATE AND REDUCE THE OXYGEN. PATIENT WAS EDUCATED REGARDING THE IMPORTANCE OF WEARING HIS OXYGEN.
[2019-02-07] MEDS: MORPHINE SULFATE 2 MG/ML SYR IVP SCH ×2 (04:54→10:55)
[2019-02-07] MEDS: BLOOD GLUCOSE MONITORING 1 DEV DEV FS SCH ×4 (05:55→21:00)
--- NOTE | 2019-02-07 06:20 | NUR ---
EDWARD IN TO SEE PT. PT KEEPS REMOVING HIS OXIMIZER. OXIMIZER 10L O2 APPLIED O2 SAT IN LOW 80S. DR WILL ORDER CXR. ENCOURAGE PT TO KEEP IT ON. PT VERBALIZED UNDERSTANDING. WILL CONTINUE TO MONITOR.
[2019-02-07] MEDS: ONDANSETRON 4 MG/2 ML VIAL IM/IVP PRN ×2 (06:21→21:55)
[2019-02-07] MEDS: ALBUTEROL SULFATE/IPRATROPIU 3 ML SOL IH SCH ×3 (06:35→19:00)
--- NOTE | 2019-02-07 06:35 | NUR ---
RECEIVED PT ON 15L OXYMIZER PT HAD LOW SPO2 PLACED NRB SPO2 86 RT CALLED SPECIAL WE[employer] AND TACT[employer] OFFICER PT [id number] 14\6 RR 12 FIO2 100
--- NOTE | 2019-02-07 06:45 | NUR ---
RAPID RESPONSE WAS CALLED BY RT. D/T LOW O2 SAT IN 70S PT WAS ON OXIMIZER 10L O2. PT ON NON REBREATHER MASK O2 SAT UP TO 91% HR 112. RR 25. DR LEON. ORDERED FOR BIPAP ABG, EKG, CXR. RT,TOOL MAINTENANCE WORKER, AT BEDSIDE.
--- NOTE | 2019-02-07 06:55 | NUR ---
PLACED PT ON SRIVASTAVA V60 ON ST 14\6 RR 12 FIO2 100, ALARMS ARE ON AND AUDIBLE, PT IN HF IRRITABLE, PT WEARING MED SIZE F\F MASK GEL UNDER MASK BIPAP PLUGGED INTO RED OUTLET , BMV HOB
--- NOTE | 2019-02-07 07:00 | NUR ---
SON IS AT BEDSIDE VS: 176/102 100% ON BIPAP, HR 114 RR 25 TEMP 99.0. ORDER TO TRANSFER TO ICU BED 7. WAITING FOR RT TO TRANSFER PT. PT IS TALKING TO SON HE WANTS TO GO HOME. EXPLAIN TO PT NEED TO STAY IN THE HOSPITAL BECAUSE HE REQUIRED O2 AND CLOSE MONITORING.
[2019-02-07] MEDS: BUDESONIDE 0.5 MG/2 ML NEBU INH SCH ×2 (07:05→19:30)
[2019-02-07] MEDS ORDERED: MORPHINE SULFATE 2 MG/ML SYR IVP SCH (07:10)
--- NOTE | 2019-02-07 07:45 | NUR ---
TRANSFERRED PT TO ICU BED 7. REPORT GIVEN TO RO[facility]. PT ON BIPAP. STATES, "I FEEL A LITTLE BETTER." PTS RESPIRATIONS ARE EQUAL AND LABORED. HR REMAINS ELEVATED 114 O2 SAT 99% RR 25. PTS BELONGING GIVEN TO SON.
--- NOTE | 2019-02-07 07:48 | NUR ---
PT MOVED TO ICU 8 STILL ON BIPAP WITH SAME SETTINGS
--- NOTE | 2019-02-07 08:00 | NUR ---
PATIENT ALERT ORIENTEDX4, ON BIPAP FIO2 100% 14/6, SO2 100% SINUS TACHYCARDIA ON MONITOR 108 BPM, SOFT ABDOMEN, CONTINENT AND USES URINAL, GAUGE 20 AT RIGHT FOREARM SALINE LOCKED AND SITE ASYMPTOMATIC, WOUND AT RIGHT LEG WITH CLEAN DRY INTACT DRESSING
[2019-02-07] MEDS: LISINOPRIL 5 MG TAB PO SCH (08:16)
[2019-02-07] MEDS: ASPIRIN 81 MG TAB.CHEW PO SCH (08:16)
[2019-02-07] MEDS: LACTOBACILLUS RHAMNOSUS GG 1 EACH CAP PO SCH (08:16)
[2019-02-07] MEDS: FUROSEMIDE 20 MG/2 ML VIAL IVP SCH ×2 (08:17→22:06)
[2019-02-07] MEDS: levETIRAcetam 500 MG TAB PO SCH ×2 (08:17→21:00)
--- NOTE | 2019-02-07 09:06 | NUR ---
DR. GOVEA AT BEDSIDE INFORMING PATIENT OF PLAN OF CARE. PHYSICIAN ASKED HIM IF HE IS WILLING TO HAVE ABG, INTUBATION, CENTRAL LINE INSERTION AND PATIENT VERBALIZED "NO" TO ALL THINGS MENTIONED. PER DR. GOVEA PATIENT VERBALIZED TO HIM THAT IF HE GOES ON ARREST THAT WE WILL DO EVERYTHING AND THAT HE IS FULL CODE
[2019-02-07] MEDS ORDERED: KETOROLAC 15 MG/ML VIAL IVP PRN (09:10)
[2019-02-07 09:28] LABS: HEMATOCRIT 27.7 % (36-52); HEMOGLOBIN 8.9 g/dL (12.0-18.0); MEAN CORPUSCULAR HEMOGLOBIN 24 pg (27-31); MEAN CORPUSCULAR HGB CONC 32 g/dL (33-37); MEAN CORPUSCULAR VOLUME 75.6 fL (80-94); PLATELET COUNT (AUTO) 443 K/uL (140-450); RED BLOOD CELL COUNT(AUTO) 3.66 MIL/uL (4.20-6.10); RED CELL DISTRIBUTION WIDTH 16.3 % (11.6-13.7)
--- NOTE | 2019-02-07 09:29 | NUR ---
FOLLOWED UP ANASTASIIA OF PHARMACY THERE IS NO STOCK OF AZITHROMYCIN
[2019-02-07] MEDS ORDERED: hydrALAZINE 20 MG/ML VIAL IVP SCH (09:30)
[2019-02-07 09:36] LABS: WHITE BLOOD COUNT (AUTO) 34.8 K/uL (4.8-10.8)
[2019-02-07] MEDS: AZITHROMYCIN 250 MG TAB PO SCH (09:46)
[2019-02-07 09:47] LABS: ANION GAP 12.3 (8-16); CARBON DIOXIDE 26.4 mmol/L (21-32); CREATININE 1.6 mg/dL (0.7-1.3); POTASSIUM 4.7 mmol/L (3.5-5.1)
[2019-02-07 10:08] LABS: BASOPHILS % (MANUAL) 0 % (0-2); EOSINOPHILS % (MANUAL) 0 % (0-4); LYMPHOCYTES % (MANUAL) 6 % (20-46); MONOCYTES % (MANUAL) 12 % (5-12)
--- NOTE | 2019-02-07 11:28 | NUR ---
PENDING SPUTUM CULTURE INFORMED RT KAMILLA OF PENDING SPUTUM CULTURE, PATIENT HAS NO SECRETION AT THIS TIME
--- NOTE | 2019-02-07 12:00 | NUR ---
DR. BUTLER, DR. GOVEA AT BEDSIDE. AFTER BEING EXPLAINED OF HIS CONDITION AND NEED FOR INTUBATION AND THE RISK OF NOT BEING INTUBATED. PATIENT VERBALIZED UNDERSTANDING BUT SAID "NO" TO INTUBATION
[2019-02-07] MEDS: VANCOMYCIN 1GM/DEXT 5% PREMIX 200 ML IV SCH ×2 (12:30→23:40)
--- NOTE | 2019-02-07 12:30 | NUR ---
PATIENT REFUSED LUNCH AT THIS TIME DUE TO SHORTNESS OF BREATH. RESPIRATORY RATE IN THE 30s AND DESATURATE TO 75% WHEN OF BIPAP FOR A FEW SECONDS. FIO2 90% AT THIS TIME. DR. GOVEA AWARE
[2019-02-07] MEDS ORDERED: FUROSEMIDE 40 MG/4 ML VIAL IVP SCH (13:00)
[2019-02-07] MEDS: GAUZE TP SCH (13:30)
[2019-02-07] MEDS ORDERED: MORPHINE SULFATE 2 MG/ML SYR IVP PRN (13:55)
--- NOTE | 2019-02-07 13:55 | NUR ---
SPUTUM CULTURE SAMPLE SENT TO LABORATORY
--- NOTE | 2019-02-07 17:13 | NUR ---
PT DOSE NOT WANT PROTETIC GEL ON FACE
[2019-02-07] MEDS: DEXT 5% /NACL 0.9% 1,000 ML IV SCH (17:15)
--- NOTE | 2019-02-07 17:30 | NUR ---
NOTED PATIENT'S IV AT LEFT FOREARM BULGED, UNABLE TO FLUSH. NO WARMTH OR REDNESS NOTED AROUND SITE. DISCONTINUED IV AND CANNULA WAS INTACT. PRESSURE DRESSING APPLIED. ICU CN ATTEMPTED TO START ANOTHER IV AT LEFT ARM USING VEIN FINDER PATIENT WAS A HARD STICK BUT UNSUCCESSFUL. PATIENT REFUSED PICC/CENTRAL LINE INSERTION DESPITE INFORMING OF IT'S BENEFITS AND RISKS BY THIS RN. TELEPHONED DR. GOVEA AND MADE AWARE
--- NOTE | 2019-02-07 17:50 | NUR ---
INFORMED DR. GOVEA OVER THE PHONE THAT PATIENT REQUESTED TO SPEAK TO HIM. PER PHYSICIAN HE IS NO LONGER AVAILABLE TO COME AND WILL ENDORSE TO DR. TOBIAS
--- NOTE | 2019-02-07 18:04 | NUR ---
PATIENT REFUSED HYGIENIC CARES AT THIS TIME
--- NOTE | 2019-02-07 18:05 | NUR ---
DR. TOBIAS INFORMED OF PATIENT HAVING NO IV AND PATIENT WANT TO SPEAK TO HIM. AYAN RN OF ER TELEPHONED AND ASKED IF AN RN CAN INSERT EXTERNAL JUGULAR LINE ON PATIENT PATIENT IS OK WITH IT. PER RECLAMATION SUPERVISOR SOMEBODY FROM ER WILL COME
--- NOTE | 2019-02-07 19:28 | NUR ---
REPORT GIVEN TO NIGHT RN
--- NOTE | 2019-02-07 19:54 | NUR ---
RECEIVED SBAR FROM DAY SHIFT RN. PATIENT IS GSC 15, BUT IS IRRITABLE AND DEMANDING. PATIENT ON BIPAP FOR OXYGEN THERAPY SUPPORT I/E 14/6 WITH BACKUP RATE OF 12. VSS AND PATIENT IS AFEBRILE. PATIENT HAS NO IV ACCESS WITH ATTEMPTED MULTIPLE IV INSERTION ATTEMPTS BY MYSELF AND BRAKE ADJUSTER. INITIAL ASSESSMENT COMPLETED. HOB AT 30 DEGREES WITH BED IN LOWEST POSITION. CALL LIGHT WITHIN REACH.
[2019-02-07] MEDS ORDERED: MORPHINE SULFATE 4 MG/ML SYR IM ONE (20:00)
--- NOTE | 2019-02-07 20:00 | NUR ---
PT AWAKE AND ALERT. PT ON BIPAP.SETTINGS CHARTED. PT RESTLESS. PT REFUSED HHN TX. PT ASKED FOR MORPHINE. RN AWARE. BIPAP CONNECTED TO RED OUTLET. ALARMS AUDIBLE. WILL CONTINUE TO MONITOR.
--- NOTE | 2019-02-07 20:29 | NUR ---
MORPHINE 3MG ADMINISTERED IM IN LEFT DELTOID PER DR. TOBIAS'S ORDERS.
[2019-02-07] MEDS: ATORVASTATIN 20 MG TAB PO SCH (21:00)
--- NOTE | 2019-02-07 21:00 | NUR ---
DR. TOBIAS AT BEDSIDE FOR CENTRAL LINE INSERTION.
--- NOTE | 2019-02-07 21:45 | NUR ---
PATIENT'S EX SOURAV AT BEDSIDE TO VISIT PATIENT.
[2019-02-07] MEDS: MORPHINE SULFATE 2 MG/ML SYR IVP PRN (21:55)
--- NOTE | 2019-02-07 23:40 | NUR ---
PATIENT REFUSED BED BATH AND PM CARE.
[2019-02-07] MEDS: ALBUTEROL SULFATE/IPRATROPIU 3 ML SOL IH PRN (23:48)
--- NOTE | 2019-02-07 23:54 | NUR ---
PT ASKED FOR BREATHING TX. PRN DUONEB IS GIVEN INLINE. PT IS RESTLESS.MD TOBIAS AWARE. ABG DONE AND RESULTS GIVEN TO MD TOBIAS. PT'S EX AT BEDSIDE. WILL CONTINUE TO MONITOR.
[2019-02-08] VITALS (27 sets, daily range): BP systolic 108–175; BP diastolic 38–104
--- NOTE | 2019-02-08 00:35 | NUR ---
PATIENT'S EX SPOUSE SOURAV LEFT UNIT FOR THE NIGHT.
--- NOTE | 2019-02-08 04:00 | NUR ---
PATIENT RESTING IN BED WITH EYES CLOSED. VSS.
[2019-02-08] MEDS: DEXT 5% /NACL 0.9% 1,000 ML IV SCH ×2 (05:13→18:15)
[2019-02-08] MEDS: MORPHINE SULFATE 2 MG/ML SYR IVP PRN ×4 (05:14→19:39)
--- NOTE | 2019-02-08 05:14 | NUR ---
AM LAB DRAWS. TREVOR.
[2019-02-08 06:46] LABS: ANION GAP 11.5 (8-16); CARBON DIOXIDE 27.8 mmol/L (21-32); CREATININE 1.8 mg/dL (0.7-1.3); POTASSIUM 4.3 mmol/L (3.5-5.1)
[2019-02-08 06:57] LABS: MAGNESIUM 1.9 mg/dL (1.8-2.4); PHOSPHORUS 5.8 mg/dL (2.5-4.9)
--- NOTE | 2019-02-08 07:24 | NUR ---
ENDORSED CONTINUITY OF CARE TO [facility].
--- NOTE | 2019-02-08 07:26 | NUR ---
received report from pm nurse.
[2019-02-08] MEDS: BLOOD GLUCOSE MONITORING 1 DEV DEV FS SCH ×4 (07:30→21:00)
--- NOTE | 2019-02-08 07:40 | NUR ---
received report from pm nurse, pt awake, alert. bedside monitor shows st 115s, on bipap [id number]%, pt has deep tachypnea, iv to right ij tlc , saline locked. site intact and patent. pt able to move all his extremities. reoriented pt environment, call light in reach, will continue to monitor.
--- NOTE | 2019-02-08 08:00 | NUR ---
pt on bipap 100%, o2 sats fluctuate from 80s-92%, instructed pt deep breath. explained to pt if o2 sats still low, he may need intubation, pt stated he does not want to be intubated.
[2019-02-08] MEDS: ALBUTEROL SULFATE/IPRATROPIU 3 ML SOL IH SCH ×3 (08:01→18:57)
[2019-02-08] MEDS: BUDESONIDE 0.5 MG/2 ML NEBU INH SCH ×2 (08:02→18:57)
[2019-02-08 08:13] LABS: BASOPHILS % (AUTO) 0.1 % (0.0-2.0); HEMOGLOBIN 8.3 g/dL (12.0-18.0); LYMPHOCYTES % (AUTO) 2.4 % (20.5-51.1); MEAN CORPUSCULAR HEMOGLOBIN 24 pg (27-31); MEAN CORPUSCULAR HGB CONC 32 g/dL (33-37); MONOCYTES # (AUTO) 1.5 K/uL (0.8-1.0); MONOCYTES % (AUTO) 3.9 % (1.7-9.3); NEUTROPHILS # (AUTO) 37.4 K/uL (1.8-7.7); NEUTROPHILS % (AUTO) 93.6 % (42.2-75.2); PLATELET COUNT (AUTO) 449 K/uL (140-450); RED BLOOD CELL COUNT(AUTO) 3.42 MIL/uL (4.20-6.10)
--- NOTE | 2019-02-08 08:32 | NUR ---
PATIENT'S O2 SAT 88% AND IS COMPLAINING OF SOB, ON 100% BIPAP. EXPLAINED TO HIM THAT IF HE CONTINUES TO DESAT THE NEXT STEP WILL BE INTUBATION. PATIENT STATED "I DO NOT WANT A TUBE ON MY THROAT AT THIS TIME." REFUSAL FOR MEDICAL TREATMENT SIGNED AND PLACED IN THE CHART.
[2019-02-08] MEDS: LACTOBACILLUS RHAMNOSUS GG 1 EACH CAP PO SCH (09:07)
[2019-02-08] MEDS: ASPIRIN 81 MG TAB.CHEW PO SCH (09:07)
[2019-02-08] MEDS: LISINOPRIL 5 MG TAB PO SCH (09:07)
[2019-02-08] MEDS: levETIRAcetam 500 MG TAB PO SCH ×2 (09:07→20:44)
[2019-02-08] MEDS: FUROSEMIDE 20 MG/2 ML VIAL IVP SCH ×2 (09:08→20:43)
[2019-02-08] MEDS: AZITHROMYCIN 250 MG TAB PO SCH (09:08)
--- NOTE | 2019-02-08 09:20 | NUR ---
PATIENT REQUESTED TO EAT BUT I ADVISED THE PATIENT THAT I WOULD HAVE TO REMOVE THE BIPAP TO ALLOW HIM TO EAT AND THAT AT THIS TIME REMOVING THE BIPAP CAN CAUSE HIM TO GO INTO COMPLETE RESPIRATORY FAILURE. PATIENT STATED THAT HE WANTED A SECOND OPINION AND THAT HE FEELS GOOD. ADVISED DR. GOVEA THAT PATIENT WANTS TO COME OFF BIPAP TO EAT AND THAT I ADVISED AGAINST IT WITH PATIENT DUE TO RESPIRATORY RATE 38 SPO2 [address] GOVEA STATED THAT PATIENT SIGNED CONSENT TO EAT AND IS AWARE OF POSSIBLE OUTCOME. REMOVED BIPAP MASK, PLACED PATIENT ONTO OXYMIZER AT 12L/M FIO2 82% BUT PATIENT WAS UNABLE TO TOLERATE AND COULD NOT BREATHE. PATIENT REQUESTED BIPAP BE PUT BACK ON BIPAP.
--- NOTE | 2019-02-08 11:21 | NUR ---
pt had moderate amount of dried bm, cleaned pt. after bm, pt c/o sob, o2 sats decreased to 70s%. rt in unit. rt checked pt, stated we may need to call . called dr. Nicole, dr. Nicole said this pt definitely needs intubation but pt refused , if pt still desaturating, we need to intubate patient. rechecked pt, pt stated he feels better, o2 sats increased to 90%.
--- NOTE | 2019-02-08 11:22 | NUR ---
ADVISED PT TO REMOVE HIS PANTS, WE CAN KEEP HIS PANTS IN A PLASTIC BAG, PT REFUSED.
[2019-02-08] MEDS: GAUZE TP SCH (13:23)
[2019-02-08] MEDS: MEROPENEM 1,000 MG in NACL 0.9% 100 ML IV SCH ×2 (13:23→20:45)
--- NOTE | 2019-02-08 14:00 | NUR ---
PT STILL ON BIPAP, O2 SATS 90S%. ABLE TO FOLLOW COMMANDS AND MAKE NEEDS KNOWN
[2019-02-08] MEDS ORDERED: LEVOFLOXACIN 750 MG/D5W PREMIX 150 ML IV SCH (15:00)
--- NOTE | 2019-02-08 16:30 | NUR ---
PT STILL ON BIPAP, O2 SATS 90S%. ABLE TO FOLLOW COMMANDS AND MAKE NEEDS KNOWN. USE URINAL FREELY.
--- NOTE | 2019-02-08 17:16 | NUR ---
Sheet Metal Worker Helper Note: I met with patient at bedside. He appeared scared. He is aware MD is recommending for him to be intubated. He told me he does not want to be intubated. I asked him why he did not want to. He responded he is scared. I told him I relay this to MD so MD can discuss process of intubation to possibly minimize his fears. He verbalized understanding and asked me if I could please call his ex Lela Kimball and tell her to come to hospital. He verbalized to me he is scared of passing away and not seeing his family again. I normalized his feelings and told him to consider following MD's plan of care recommendations. He nodded his head. I called and spoke with Lela Jigar. Per Lela, her [facility] She is aware patient is refusing to be intubated due to fear. I informed patient is refusing to be intubated because he is scared. Per Dr. Watkins, he will speak with patient regarding process of intubation.
[2019-02-08] MEDS ORDERED: VANCOMYCIN 1GM/DEXT 5% PREMIX 200 ML IV SCH (18:00)
--- NOTE | 2019-02-08 18:08 | NUR ---
PT STILL ON BIPAP, O2 SATS 90S%. VOIDS URINE 100 CC. ABLE TO FOLLOW COMMANDS AND MAKE NEEDS KNOWN
--- NOTE | 2019-02-08 19:10 | NUR ---
ENDORSE PT TO PM NURSE.
--- NOTE | 2019-02-08 19:15 | NUR ---
RECEIVED REPORT FROM SCOTT LORENZO RN. PATIENT ALERT AND ORIENTED. BIPAP IN PLACE, TACHYPNEA NOTED , SPO2 AT 88%, LABORED BREATHING NOTED AT THIS TIME. SPEAKING IN SLOW FULL SENTENCES WITH SOB. DR AWARE OF PATIENT CONDITION, PATIENT REFUSING INTUBATION. RIJ RUNNING FLUIDS, SIGHT ASYMPTOMATIC AND PATENT. PATIENT REPORTS GENERALIZED BODY PAIN 06/09. HEART RATE ELEVATED AT 116, BP ELEVATED AT 166/88. PATIENT POSITIONED FOR COMFORT, CALL LIGHT WITHIN REACH, BED IN LOW LOCKED POSITION. WILL CONTINUE TO MONITOR CLOSELY.
--- NOTE | 2019-02-08 19:25 | NUR ---
RECEIVED PATIENT ON BIPAP ON SETTINGS: ST 14/6, 12, 100%. PATIENT PRESENTS WITH LABORED BREATHING, TACHYPNEIC. BIPAP CHECK DONE. BIPAP PLUGGED INTO RED OUTLET. AMBU BAG AT BEDSIDE. GEL SKIN BARRIER PLACED. EXPLAINED DONNING AND DOFFING OF BIPAP EQUIPMENT. PATIENT PROVIDED RETURN DEMONSTRATION. SCHEDULED BREATHING TREATMENTS ADMINISTERED IN LINE WITH NIPPV. TOLERATED TREATMENTS WELL, NO ADVERSE SIDE EFFECTS. ORAL CARE DONE POST TX. WILL CONTINUE TO MONITOR.
--- NOTE | 2019-02-08 19:52 | NUR ---
PATIENT AT BEDSIDE.
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
--- NOTE | 2019-02-08 20:20 | NUR ---
PATIENT REPORTED TO NURSE THAT HE USED HEROIN A COUPLE HOURS AGO WHILE IN THE HOSPITAL. STATES HE HAD THE DRUGS ON HIM, HE PRODUCED THE NEEDLE HE USED FOR INJECTION. CHARGE NURSE MADE AWARE.
[2019-02-08] MEDS: ATORVASTATIN 20 MG TAB PO SCH (20:44)
[2019-02-08] MEDS ORDERED: NALOXONE PFS 2 MG/2 ML SYR IVP SCH (21:30)
[2019-02-08] MEDS ORDERED: MORPHINE SULFATE 4 MG/ML SYR IVP SCH (22:30)
--- NOTE | 2019-02-08 22:30 | NUR ---
ISAEL, SON, CALLED AND INFORMED OF PT CONDITION, PT WANTING TO LEAVE HOSPITAL. DR. TOBIAS MADE AWARE. ISAEL STATED HE WOULD COME TO HOSPITAL TO TALK TO FATHER. 2234; MD @ BEDSIDE TALKING TO PT AND PLAN OF CARE. 2239: ISAEL @ BEDSIDE; PT NOW AGREEABLE TO TREATMENT/INTUBATION AFTER MD AND FAMILY TALKED TO PT. PT ALLOWED STAFF TO GO THROUGH BELONGINGS TO INVENTORY.
--- NOTE | 2019-02-08 22:52 | NUR ---
ERMD AT BEDSIDE TO PREFORM INTUBATION. 20MG ETOMIDATE GIVEN @2252 AND 100MG SUC GIVEN @ 2253 ORDERED. TUBE IN AT 2305. XRAY PREFORMED AT 2310, PLACEMENT VERIFIED.
[2019-02-08] MEDS ORDERED: PROPOFOL 1000 MG/100 ML PREMIX 100 ML IV ONE (22:58)
--- NOTE | 2019-02-08 23:05 | NUR ---
PT INTUBATED BY ED MD CALDERÓN WITH PRESENCE OF RT COPPOLA, CHARGE NURSE DARÍO, PT'S RN DIXON. PT INTUBATED WITH 7.5 [address]TT [address] [facility]. TUBE PLACEMENT CONFIRMED BY MD CALDERÓN BY CXR AT BEDSIDE. TUBA IS IN PLACE AND SECURED WITH ANCHOR-FAST. VENT IS CONNECTED TO RED OUTLET. ALARMS AUDIBLE. AMBU BAG AT BEDSIDE. VENT SETTINGS CHARTED. FOLLOWED MD TOBIAS ORDER ON VENT SETTINGS. SPUTUM SAMPLE COLLECTED AND SENT TO LAB BY RT COPPOLA. NO SOB OR DISTRESS NOTED. WILL CONTINUE TO MONITOR.
[2019-02-08] MEDS ORDERED: hydrALAZINE 20 MG/ML VIAL IVP PRN (23:10)
[2019-02-08] MEDS: PROPOFOL 1000 MG/100 ML PREMIX 100 ML IV PRN ×2 (23:10→23:57)
[2019-02-08] MEDS ORDERED: NACL 0.9% 1,000 ML IV ONE (23:30)
[2019-02-08] MEDS ORDERED: MIDAZOLAM MDV 50 MG in NACL 0.9% 40 ML IV PRN (23:35)
--- NOTE | 2019-02-08 23:45 | NUR ---
OG TUBE PUT IN PLACE, PATIENT TOLERATED WELL. SANDERS CATH ALSO PLACED USING STERILE TECHNIQUE, URINE DRAINING TO GRAVITY. PATIENT TOLERATED WELL.
[2019-02-08] MEDS: LORazepam 2 MG/ML VIAL IVP PRN (23:52)
[2019-02-09] VITALS (103 sets, daily range): BP systolic 71–139; BP diastolic 37–67
[2019-02-09] MEDS: INSULIN LISPRO SLIDING SCALE 100 UNITS/ML VIAL SUBQ PRN (00:32)
[2019-02-09] MEDS ORDERED: ETOMIDATE 20 MG/10 ML VIAL IVP SCH (01:00)
[2019-02-09] MEDS ORDERED: SUCCINYLCHOLINE CHLORIDE 200 MG/10 ML VIAL IVP SCH (01:00)
[2019-02-09] MEDS: ALBUTEROL SULFATE/IPRATROPIU 3 ML SOL IH PRN (01:37)
[2019-02-09] MEDS: fentaNYL 1 MG in NACL 0.9% 80 ML IV PRN ×3 (01:40→17:56)
[2019-02-09] MEDS: MIDAZOLAM MDV 100 MG in NACL 0.9% 80 ML IV PRN ×3 (01:41→20:22)
[2019-02-09] MEDS: PROPOFOL 1000 MG/100 ML PREMIX 100 ML IV PRN (01:43)
[2019-02-09] MEDS: MEROPENEM 1,000 MG in NACL 0.9% 100 ML IV SCH ×3 (04:44→20:12)
[2019-02-09] MEDS: DEXT 5% /NACL 0.9% 1,000 ML IV SCH ×2 (05:39→12:26)
[2019-02-09 06:16] LABS: ANION GAP 12.5 (8-16); CREATININE 2.3 mg/dL (0.7-1.3); POTASSIUM 4.5 mmol/L (3.5-5.1)
[2019-02-09 06:26] LABS: MAGNESIUM 2.1 mg/dL (1.8-2.4); PHOSPHORUS 6.2 mg/dL (2.5-4.9)
--- NOTE | 2019-02-09 07:18 | NUR ---
REPORT GIVEN TO BJ MC FOR CONTINUED CARE.
[2019-02-09] MEDS: ALBUTEROL SULFATE/IPRATROPIU 3 ML SOL IH SCH ×3 (07:24→18:52)
[2019-02-09] MEDS: BUDESONIDE 0.5 MG/2 ML NEBU INH SCH ×2 (07:30→19:10)
[2019-02-09] MEDS: BLOOD GLUCOSE MONITORING 1 DEV DEV FS SCH ×4 (07:30→20:12)
--- NOTE | 2019-02-09 07:30 | NUR ---
RECEIVED PT FROM PM NURSE. PT SEDATED ON FENTANYL 100 MCG/HR AND VERSED 6 MG/HR. BEDSIDE MONITOR SHOWS ST 115S. ETT TO VENT WITH RNP0=444%, AC 18 AND PEEP 12. PT HAS RIGHT IJ TLC RUNNING D5 NS AT 100 CC/HR. OG TUBE IN PLACE, PLACEMENT CHECKED, WITHDRAWAL SOME GREENISH SECRETION FROM OG TUBE, TOSS THE SECRETION. DR. GOVEA MADE AWARE. PT ALSO HAS ONE SANDERS CATH IN PLACE, ALL SAFETY MEASURES IN PLACE, WILL CONTINUE TO MONITOR.
[2019-02-09 08:08] LABS: HEMATOCRIT 21.4 % (36-52); MEAN CORPUSCULAR HEMOGLOBIN 25 pg (27-31); MEAN CORPUSCULAR HGB CONC 32 g/dL (33-37); MEAN CORPUSCULAR VOLUME 76.1 fL (80-94); PLATELET COUNT (AUTO) 325 K/uL (140-450); RED BLOOD CELL COUNT(AUTO) 2.81 MIL/uL (4.20-6.10); RED CELL DISTRIBUTION WIDTH 15.7 % (11.6-13.7); WHITE BLOOD COUNT (AUTO) 29.9 K/uL (4.8-10.8)
[2019-02-09] MEDS ORDERED: NOREPINEPHRINE 8 MG in DEXTROSE 5% 250 ML IV PRN (08:10)
[2019-02-09 08:14] LABS: HEMOGLOBIN 6.9 g/dL (12.0-18.0)
[2019-02-09 08:42] LABS: LYMPHOCYTES % (MANUAL) 3 % (20-46); MONOCYTES % (MANUAL) 2 % (5-12)
[2019-02-09] MEDS: levETIRAcetam 500 MG TAB PO SCH ×2 (09:00→20:13)
[2019-02-09] MEDS: LISINOPRIL 5 MG TAB PO SCH (09:00)
[2019-02-09] MEDS: PANTOPRAZOLE 40 MG INJ VIAL IVP SCH (09:00)
[2019-02-09] MEDS: FAMOTIDINE 20 MG/2 ML VIAL IVP SCH (09:00)
[2019-02-09] MEDS: ASPIRIN 81 MG TAB.CHEW PO SCH (09:01)
[2019-02-09] MEDS: LACTOBACILLUS RHAMNOSUS GG 1 EACH CAP PO SCH (09:03)
[2019-02-09] MEDS ORDERED: NACL 0.9% 1,000 ML IV SCH (09:10)
[2019-02-09] MEDS ORDERED: CLINICAL MONITORING MC PRN (09:35)
[2019-02-09] MEDS: SODIUM FERRIC GLUCONATE 125 MG in NACL 0.9% 100 ML IV SCH (11:11)
--- NOTE | 2019-02-09 11:21 | NUR ---
PT'S SON PRESENTED TO BEDSIDE, DR. GOVEA HAD CONVERSATION WITH PT'S SON.
--- NOTE | 2019-02-09 12:00 | NUR ---
PT REMAINS TACHYPNEIC AT THIS TIME. ETT REMAINS SECURE WITH A PATENT AIRWAY. WILL CONTINUE TO MONITOR.
[2019-02-09] MEDS: CALCIUM ACETATE 667 MG TAB PO SCH ×2 (12:24→17:56)
[2019-02-09] MEDS: GAUZE TP SCH (12:26)
--- NOTE | 2019-02-09 12:48 | NUR ---
FIO2 TITRATED TO 90%. WILL CONTINUE TO MONITOR.
--- NOTE | 2019-02-09 13:04 | NUR ---
DR. COBB AT BEDSIDE TO CHECK PT, WILL FOLLOW UP.
--- NOTE | 2019-02-09 13:32 | NUR ---
REDUCEDE PTS FIO2 TO 70% SPO2 REMAINS STABLE AT 98%
--- NOTE | 2019-02-09 14:00 | NUR ---
CALLED KITCHED FOR TUBE FEEDING BAG.
--- NOTE | 2019-02-09 15:15 | NUR ---
STARTED PT ON TUBE FEEDING AT 10 CC/HR, PLACEMENT CHECKED.
--- NOTE | 2019-02-09 15:21 | NUR ---
PT SUCTIONED OBTAINED SMALL AMOUNT OF THICK CLEAR SECRETIONS, AIRWAY IS PATENT AND ETT IS SECURE. PT REMAINS TACHYPNEIC. WILL CONTINUE TO MONITOR.
[2019-02-09 16:24] LABS: MEAN CORPUSCULAR HEMOGLOBIN 25 pg (27-31); MEAN CORPUSCULAR HGB CONC 33 g/dL (33-37); MEAN CORPUSCULAR VOLUME 75.4 fL (80-94); PLATELET COUNT (AUTO) 313 K/uL (140-450); WHITE BLOOD COUNT (AUTO) 19.3 K/uL (4.8-10.8)
[2019-02-09 16:54] LABS: HEMATOCRIT 20.4 % (36-52); HEMOGLOBIN 6.6 g/dL (12.0-18.0)
[2019-02-09 17:11] LABS: EOSINOPHILS % (MANUAL) 2 % (0-4); LYMPHOCYTES % (MANUAL) 8 % (20-46); MONOCYTES % (MANUAL) 1 % (5-12)
--- NOTE | 2019-02-09 17:46 | NUR ---
NO DISTRESS NOTED AT THIS TIME PT TOLERATING TX WELL. ALARMS SET TO CHARTED SETTINGS AND AUDIBLE. ALL EQUIPMENT PLUGGED INTO RED OUTLETS AND AMBU BAG AT BEDSIDE
[2019-02-09] MEDS: NACL 0.9% 1,000 ML IV SCH (17:50)
--- NOTE | 2019-02-09 18:00 | NUR ---
PT IS RESTLESS, TRIED TO PULL OUT TUBES, O2 SATS DECREASED TO 80S, CALLED RT. APPLIED SOFT RESTRAINS ON PT. INCREASED VERSED TO 7. WILL CONTINUE TO MONITOR PT.
--- NOTE | 2019-02-09 18:01 | NUR ---
PT DESATING FROM MID TO LOW 80S BUMPED FIO2 UP TO 80% AND SATURATION WENT UP TO MID 90S
[2019-02-09 18:15] LABS: PROTHROMBIN TIME 11.5 secs (10.8-13.4)
[2019-02-09] MEDS: LORazepam 2 MG/ML VIAL IVP PRN (18:19)
--- NOTE | 2019-02-09 18:30 | NUR ---
PT CALMS DOWN, O2 SATS AT 95%. NO S/S OF RESPIRATORY DISTRESS NOTED.
[2019-02-09] MEDS ORDERED: ALTEPLASE 100 MG VIAL IV ONE (19:05)
--- NOTE | 2019-02-09 19:10 | NUR ---
ENDORSED PT TO PM NURSE.
[2019-02-09] MEDS ORDERED: ALTEPLASE 2 MG VIAL MC SCH (19:15)
--- NOTE | 2019-02-09 19:30 | NUR ---
BED SIDE SHIFT REPORT RECEIVED FROM DAY RN, PT ALTERED, AGITATED, DOES NOT FOLLOW COMMANDS. ET TO VENT, BREATHING NORMALLY, ST ON THE MONITOR. OGT INTACT AND FEEDING ONGOING, SANDERS CATHETER INTACT AND DRAINING WELL, EXTREMITIES ARE SWOLLEN, NO S/S OF ANY ACUTE DISTRESS AT THIS TIME, CALLED AND LEFT MESSAGE REGARDING BLOOD TRANSFUSION. WILL CONTINUE TO MONITOR CLOSELY.
[2019-02-09] MEDS ORDERED: WATER STERILE 10 ML MC ONE (19:47)
[2019-02-09] MEDS: ACETAMINOPHEN 325 MG TAB PO SCH (19:51)
[2019-02-09] MEDS: ATORVASTATIN 20 MG TAB PO SCH (20:13)
--- NOTE | 2019-02-09 20:45 | NUR ---
BLOOD TRANSFUSION STARTED, WILL MONITOR FOR ADVERSE REACTION.
--- NOTE | 2019-02-09 21:00 | NUR ---
TUBE FEEDING TOLERATING WELL, INCREASED TO 20ML/HR.
--- NOTE | 2019-02-09 21:13 | NUR ---
NO S/S OF ANY ADVERSE REACTION OF BLOOD TRANSFUSION.
--- NOTE | 2019-02-09 22:35 | NUR ---
PT COMFORTABLE, SEDATED, UNABLE TO FOLLOW COMMANDS, REPOSITIONED, CLEANED. WILL CONTINUE TO MONITOR CLOSELY
--- NOTE | 2019-02-09 23:18 | NUR ---
VENT CHECK DONE. VENT ALARMS ON AND AUDIBLE. MARKIE YUNG AT [facility]. VENT PLUGGED INTO RED OUTLET. NO ACUTE DISTRESS NOTED AT THIS TIME. WILL CONTINUE TO MONITOR. Addendum: 02/09/19 at 2320 by Lela Vaughn RT FIO2 TITRATED TO 70%. PULSE OX SAT 94%.
[2019-02-10] VITALS (103 sets, daily range): BP systolic 95–139; BP diastolic 51–106
[2019-02-10] MEDS: ACETAMINOPHEN 325 MG TAB PO SCH ×2 (01:00→03:05)
--- NOTE | 2019-02-10 01:15 | NUR ---
PT COMFORTABLE, SEDATED, UNABLE TO FOLLOW COMMANDS, REPOSITIONED, CLEANED. WILL CONTINUE TO MONITOR CLOSELY
--- NOTE | 2019-02-10 01:22 | NUR ---
VENT CHECK DONE. ALARMS ON AND AUDIBLE. TITRATE FIO2 TO 65%. PULSE OX SAT 94%. NO RESPIRATORY DISTRESS NOTED AT THIS TIME. WILL CONTINUE TO MONITOR.
[2019-02-10 02:29] LABS: BASOPHILS # (AUTO) 0.1 K/uL (0.00-0.22); BASOPHILS % (AUTO) 0.6 % (0.0-2.0); EOSINOPHILS # (AUTO) 0.2 K/uL (0-0.4); EOSINOPHILS % (AUTO) 0.9 % (0.0-4.0); HEMATOCRIT 22.9 % (36-52); HEMOGLOBIN 7.4 g/dL (12.0-18.0); LYMPHOCYTES # (AUTO) 1.3 K/uL (2.0-11.5); LYMPHOCYTES % (AUTO) 6.8 % (20.5-51.1); MEAN CORPUSCULAR HEMOGLOBIN 25 pg (27-31); MEAN CORPUSCULAR HGB CONC 32 g/dL (33-37); MEAN CORPUSCULAR VOLUME 76.4 fL (80-94); MONOCYTES # (AUTO) 0.9 K/uL (0.8-1.0); MONOCYTES % (AUTO) 4.7 % (1.7-9.3); NEUTROPHILS # (AUTO) 16.6 K/uL (1.8-7.7); PLATELET COUNT (AUTO) 308 K/uL (140-450); RED CELL DISTRIBUTION WIDTH 15.9 % (11.6-13.7)
[2019-02-10] MEDS: MIDAZOLAM MDV 100 MG in NACL 0.9% 80 ML IV PRN ×4 (02:43→20:49)
[2019-02-10] MEDS: NACL 0.9% 1,000 ML IV SCH ×3 (03:04→23:50)
[2019-02-10] MEDS: LORazepam 2 MG/ML VIAL IVP PRN ×3 (03:05→14:39)
[2019-02-10] MEDS: fentaNYL 1 MG in NACL 0.9% 80 ML IV PRN ×4 (04:24→23:34)
[2019-02-10] MEDS: MEROPENEM 1,000 MG in NACL 0.9% 100 ML IV SCH ×3 (04:28→20:14)
--- NOTE | 2019-02-10 05:28 | NUR ---
VENT CHECK DONE. PATIENT REMAINS TACHYPNEIC. VENT ALARMS ON AND AUDIBLE. AMBU BAG AT [facility]. WILL CONTINUE TO MONITOR.
[2019-02-10] MEDS: ALBUTEROL SULFATE/IPRATROPIU 3 ML SOL IH SCH ×4 (06:32→19:03)
--- NOTE | 2019-02-10 06:32 | NUR ---
REC'D PT ON CARESCAPE VENT SETTINGS PC20 RR 18 PEEP 12 ITIME0.70 FIO2 70% ALARMS ON AND AUDIBLE AMBU BAG AT HOB, I\L TXS GIVEN WITH DUONEB 3ML AND PULMICORT 0.5MG WITH NO ADVERSE REACTION POST TX B\S ARE CLEAR BILATERALLY, SXN PT SMALL AMT OF THIN WHITE SECRETIONS PT IS ORALLY INTUBATED WITH 7.5 ET TUBE SECURED WITH ANCHOR FAST AT 27 CM AT MIDLINE PT HAS BITE BLOCK IN PLACE IS PT IS SLEEPING WITH NO SIGNS OF DISTRESS NOTED
[2019-02-10] MEDS: BUDESONIDE 0.5 MG/2 ML NEBU INH SCH ×2 (06:54→19:03)
[2019-02-10 07:26] LABS: BASOPHILS # (AUTO) 0.1 K/uL (0.00-0.22); BASOPHILS % (AUTO) 0.6 % (0.0-2.0); EOSINOPHILS # (AUTO) 0.2 K/uL (0-0.4); EOSINOPHILS % (AUTO) 1.1 % (0.0-4.0); HEMATOCRIT 23.3 % (36-52); HEMOGLOBIN 7.5 g/dL (12.0-18.0); LYMPHOCYTES # (AUTO) 1.3 K/uL (2.0-11.5); LYMPHOCYTES % (AUTO) 7.2 % (20.5-51.1); MEAN CORPUSCULAR HEMOGLOBIN 24 pg (27-31); MEAN CORPUSCULAR HGB CONC 32 g/dL (33-37); MEAN CORPUSCULAR VOLUME 76.2 fL (80-94); MONOCYTES # (AUTO) 0.9 K/uL (0.8-1.0); NEUTROPHILS # (AUTO) 16.1 K/uL (1.8-7.7); NEUTROPHILS % (AUTO) 86.1 % (42.2-75.2); PLATELET COUNT (AUTO) 314 K/uL (140-450); RED BLOOD CELL COUNT(AUTO) 3.06 MIL/uL (4.20-6.10); RED CELL DISTRIBUTION WIDTH 15.6 % (11.6-13.7); WHITE BLOOD COUNT (AUTO) 18.7 K/uL (4.8-10.8)
--- NOTE | 2019-02-10 07:30 | NUR ---
BEDSIDE REPORT GIVEN TO ROSEMARY MC, PT STABLE, INTUBATED, NO S/S OF ANY ACUTE DISTRESS. SEDATED.
[2019-02-10 07:42] LABS: MAGNESIUM 2.3 mg/dL (1.8-2.4); PHOSPHORUS 5.4 mg/dL (2.5-4.9)
--- NOTE | 2019-02-10 07:45 | NUR ---
RECEIVED PATIENT ON FENTANYL 140 MCG/HR., VERSED 10 MGS./HR., NORMAL SALINE 100 ML/HR THROUGH CENTRAL LINE. OPENS EYES TO PAIN, SOMETIMES TO VOICE, LOCALIZES TO PAIN AND ON BILATERAL SOFT WRIST RESTRAINTS (SEE INTERVENTIONS) BOTH PUPILS 3+MM PERRL SLUGGISH
[2019-02-10 07:47] LABS: PROTHROMBIN TIME 11.2 secs (10.8-13.4)
--- NOTE | 2019-02-10 08:00 | NUR ---
RECEIVED PATIENT INTUBATED 7.5, 27 IN THE TEETH, SO2 91% ON VENTILATOR PC PRESSURE 20 FIO2 70% PEEP12 RATE18
[2019-02-10 08:01] LABS: ANION GAP 14.3 (8-16); CARBON DIOXIDE 23.8 mmol/L (21-32); CREATININE 2.6 mg/dL (0.7-1.3); POTASSIUM 4.1 mmol/L (3.5-5.1)
--- NOTE | 2019-02-10 08:01 | NUR ---
PATIENT SINUS TACHYCARDIA ON MONITOR, GENERALIZED NON PITTING EDEMA, WITH OG TUBE, ON ENTERAL NEPRO 30 ML/HR. PATENT ON AUSCULTATION AND NO RESIDUALS ON ASPIRATION, SOFT ABDOMEN, WITH FR.16 SANDERS CATHETER, YELLOW CLOUDY URINE NOTED IN THE UROBAG, WITH TRIPLE LUMEN CENTRAL LINE-SITE ASYMPTOMATIC, RIGHT LOWER LEG OPEN WOUND WITH CLEAN DRY INTACT DRESSING
[2019-02-10] MEDS: BLOOD GLUCOSE MONITORING 1 DEV DEV FS SCH ×4 (08:34→20:53)
[2019-02-10] MEDS: ASPIRIN 81 MG TAB.CHEW PO SCH (08:35)
[2019-02-10] MEDS: LACTOBACILLUS RHAMNOSUS GG 1 EACH CAP PO SCH (08:35)
[2019-02-10] MEDS: LISINOPRIL 5 MG TAB PO SCH (08:35)
[2019-02-10] MEDS: levETIRAcetam 500 MG TAB PO SCH ×2 (08:36→20:15)
[2019-02-10] MEDS: CALCIUM ACETATE 667 MG TAB PO SCH (08:36)
[2019-02-10] MEDS: PANTOPRAZOLE 40 MG INJ VIAL IVP SCH (08:37)
[2019-02-10] MEDS: FAMOTIDINE 20 MG/2 ML VIAL IVP SCH (09:00)
[2019-02-10] MEDS ORDERED: VANCOMYCIN 1GM/DEXT 5% PREMIX 200 ML IV SCH (09:00)
--- NOTE | 2019-02-10 09:04 | NUR ---
PER DR. GOVEA OK TO GIVE HEPARIN SC AND GIVE PROTONIX AND PEPCID WILL BE DISCONTINUED. PHYSICIAN MADE AWARE THAT PATIENT HAS NO CHEST XRAY AND ABG ORDERED FOR TODAY
--- NOTE | 2019-02-10 09:40 | NUR ---
URINE SAMPLE COLLECTED AND SENT TO LABORATORY FOR ORDERED TESTS
--- NOTE | 2019-02-10 10:04 | NUR ---
NO GASTRIC RESIDUALS FROM OG TUBE, NEPRO INCREASED TO 40 ML/HR GOAL RATE
[2019-02-10] MEDS: SODIUM FERRIC GLUCONATE 125 MG in NACL 0.9% 100 ML IV SCH (11:20)
[2019-02-10 11:36] LABS: BARBITURATE, URINE NEG. ng/ml (NEG <=200); BENZODIAZEPINE, URINE POS. ng/mL (NEG <=200); CANNABINOID, URINE NEG. ng/mL (NEG <=50); COCAINE, URINE NEG. ng/mL (NEG <=300); OPIATE, URINE POS. ng/mL (NEG <=2000); PHENCYCLIDINE SCREEN,URINE NEG. ng/mL (NEG <=25)
--- NOTE | 2019-02-10 12:45 | NUR ---
PATIENT HAS A VISITOR SOURAV AT BEDSIDE. SOURAV SAID SHE IS THE "X "
[2019-02-10] MEDS: GAUZE TP SCH (13:09)
--- NOTE | 2019-02-10 13:15 | NUR ---
PATIENT'S VISITOR SOURAV LEFT
[2019-02-10] MEDS: LEVOFLOXACIN 750 MG/D5W PREMIX 150 ML IV SCH (14:39)
--- NOTE | 2019-02-10 14:39 | NUR ---
PATIENT TACHYPNEIC WITH LABORED BREATHING NOTED. PRN ATIVAN GIVEN. WILL CONTINUE TO MONITOR.
--- NOTE | 2019-02-10 16:30 | NUR ---
PATIENT'S BROTHER ASHLEY AND HERE AT BEDSIDE FOR 15 MINUTES TO VISIT
[2019-02-10 16:32] LABS: CHLORIDE,URINE RANDOM 22 mmol/L (110-250); CREATININE,URINE RANDOM 127 mg/dL (30-125); URINE SODIUM, RANDOM 24 mmol/l (40-220)
--- NOTE | 2019-02-10 17:13 | NUR ---
IV FLUID INFORMED DR. GOVEA THAT PATIENT IS STILL GETTING NORMAL SALINE 100ML/HR. AND ON ENTERAL NEPRO 30 ML/HR, WATER FLUSH 200ML Q 4HOURS AND CHEST XRAY SHOWED PULMONARY EDEMA. PER PHYSICIAN " WE NEED TO CONTINUE THE IV FLUIDS OR HIS KIDNEY WILL FAIL"
--- NOTE | 2019-02-10 18:30 | NUR ---
PER PHYSICIAN DR. GARCIA, TITRATE FIO2 TO MAINTAIN SPO2 >90%. FIO2 TITRATED TO 65%. PULSE OX SAT 93%. WILL CONTINUE TO MONITOR.
--- NOTE | 2019-02-10 19:04 | NUR ---
DR. GARCIA AT BEDSIDE, MADE AWARE FENTANYL INCREASED TO 190MCG/HR DUE TO PATIENT RESPIRATION IN THE 40s NO 20s, VERSED AT 10 MGS/HR., OPENS EYES TO PAIN AND CALM. PER PHYSICIAN HE AGREES WITH THE INTERVENTIONS
--- NOTE | 2019-02-10 19:06 | NUR ---
REPORT GIVEN TO NIGHT RN
--- NOTE | 2019-02-10 19:24 | NUR ---
RECEIVED PATIENT ETT 7.5 TO VENT ON SETTINGS AC/PC: Pinsp 20, SET RR 18, Tinsp 0.70, PEP 12, FIO2 65%. VENT CHECK DONE. VENT ALARMS ON AND AUDIBLE. VENT PLUGGED INTO RED OUTLET. AMBU BAG AT [facility]. AIRWAY SECURE AND PATENT. BITE BLOCK IN PLACE. SUCTIONED SMALL AMOUNT OF THICK, YELLOW SECRETIONS. ORALLY SUCTIONED LARGE AMOUNT OF THIN, CLEAR SECRETIONS. SCHEDULED BREATHING TREATMENTS ADMINISTERED. TOLERATED TX WELL, NO ADVERSE SIDE EFFECTS. NO RESPIRATORY DISTRESS NOTED AT THIS TIME. WILL CONTINUE TO MONITOR.
--- NOTE | 2019-02-10 19:30 | NUR ---
RECEIVED BEDSIDE REPORT FROM DAY SHIFT RN. PT IS SEDATED, RASS -3. AFEBRILE. FLACC 0. SINUS TACHYCARDIA ON MONITOR. S1 +S2 HEARD. PT IS ETT TO VENT W/ SETTINGS: AC/PC, FIO2 65%, RR 18, PEEP 12, PINSP 20. BILATERAL LUNGS SOUND CLEAR. BREATHING EVEN AND UNLABORED. OGT IN PLACE, RECEIVING NEPRO AT 40 ML/HR, WATER FLUSH 200 ML Q4H. 60 ML RESIDUALS NOTED. OGT PLACEMENT CONFIRMED. ABDOMEN ROUND, SOFT, NONDISTENDED W/ ACTIVE BOWEL SOUNDS. CENTRAL LINE TLC TO RIJ ASYMPTOMATIC, PATENT, INTACT, RUNNING IV FLUID NS AT 100 ML/HR, VERSED AT 10 MG/HR AND FENTANYL AT 190 MCG/HR. SANDERS CATH IN PLACE DRAINING YELLOW URINE W/ SEDIMENTS TO GRAVITY. OPEN WOUND NOTED TO RIGHT LOWER LEG. SKIN IS DRY AND WARM TO TOUCH. +2 EDEMA NOTED TO BUE/BLE. HOB 30 DEGREES, BED IN LOWEST POSITION, LOCKED. CALL LIGHT WITHIN REACH. NO SIGNS OF DISTRESS NOTED AT THIS TIME. WILL CONTINUE TO MONITOR.
[2019-02-10] MEDS: ATORVASTATIN 20 MG TAB PO SCH (20:15)
--- NOTE | 2019-02-10 20:15 | NUR ---
PT SEEN BY DR. BISHOP. UPDATES GIVEN ON PT'S CONDITION. WILL FOLLOW UP ON ORDERS.
--- NOTE | 2019-02-10 20:36 | NUR ---
MEDICATIONS ADMINISTERED ORDERED. PT TOLERATED WELL.
--- NOTE | 2019-02-10 20:38 | NUR ---
TITRATED FIO2 TO 60%. PULSE OX SAT 92%. RN NOTIFIED. NO RESPIRATORY DISTRESS NOTED. WILL CONTINUE TO MONITOR.
[2019-02-11] VITALS (106 sets, daily range): BP systolic 98–138; BP diastolic 46–78
--- NOTE | 2019-02-11 00:07 | NUR ---
VAP ORAL CARE GIVEN. TURNED AND REPOSITIONED FOR COMFORT AND OFF LOADING. NO SIGNS OF DISTRESS NOTED. WILL CONTINUE TO MONITOR.
--- NOTE | 2019-02-11 01:00 | NUR ---
WOUND CARE AND TREATMENT GIVEN ORDERED, DRESSING CHANGED.
--- NOTE | 2019-02-11 01:37 | NUR ---
PULSE OX SAT DROPPED TO 87%. FIO2 INCREASED TO 70%. PULSE OX SATURATION 93%. TITRATED TO 65%. PULSE OX SAT 92%. WILL CONTINUE TO MONITOR.
--- NOTE | 2019-02-11 04:00 | NUR ---
SOFT WRIST RESTRAINTS DISCONTINUED. NO MORE PULLING LINES AND TUBES NOTED. ALL SAFETY PRECAUTIONS IN PLACE. WILL CONTINUE TO MONITOR.
[2019-02-11] MEDS: MEROPENEM 1,000 MG in NACL 0.9% 100 ML IV SCH ×3 (04:18→20:24)
[2019-02-11] MEDS: NACL 0.9% 1,000 ML IV SCH ×2 (04:25→20:23)
[2019-02-11] MEDS: fentaNYL 1 MG in NACL 0.9% 80 ML IV PRN ×4 (05:31→22:21)
--- NOTE | 2019-02-11 06:00 | NUR ---
CHEST X-RAY COMPLETED AT BEDSIDE. VSS. NO S/SX OF ACUTE DISTRESS NOTED. WILL CONTINUE TO MONITOR.
--- NOTE | 2019-02-11 06:46 | NUR ---
DR. GOVEA IN TO SEE AND EXAMINE PT. UPDATES GIVEN ON PT'S CONDITION. WILL FOLLOW UP ON ORDERS.
[2019-02-11] MEDS: ALBUTEROL SULFATE/IPRATROPIU 3 ML SOL IH SCH ×3 (06:57→18:39)
--- NOTE | 2019-02-11 06:57 | NUR ---
REC'D PT ON CARESCAPE VENT SETTINGS PC20 RR18 PEEP 12 ITME 0.70 FIO2 60% ALARMS ON AND AUDIBLE AMBU BAG AT SIDE OF VENT AND VENT IS PLUGGED INTO RED OUTLET, I\L TXS GIVEN WITH DUONEB 3ML AND PULMICORT 0.5MG WITH NO ADVERSE REACTION POST TX B\S ARE DIMINISHED BILATERALLY PT IS ORALLY INTUBATED WITH 7.5 ET TUBE SECURED WITH ANCHOR FAST AT 27CM AND SKIN INTEGRITY IS INTACT, PT IS RESTING
[2019-02-11 06:59] LABS: HEMATOCRIT 25.8 % (36-52); HEMOGLOBIN 8.1 g/dL (12.0-18.0); MEAN CORPUSCULAR HEMOGLOBIN 24 pg (27-31); MEAN CORPUSCULAR HGB CONC 32 g/dL (33-37); MEAN CORPUSCULAR VOLUME 77.7 fL (80-94); PLATELET COUNT (AUTO) 383 K/uL (140-450); RED BLOOD CELL COUNT(AUTO) 3.32 MIL/uL (4.20-6.10); RED CELL DISTRIBUTION WIDTH 16.3 % (11.6-13.7)
[2019-02-11] MEDS: BUDESONIDE 0.5 MG/2 ML NEBU INH SCH ×2 (07:06→18:39)
--- NOTE | 2019-02-11 07:08 | NUR ---
REPORT GIVEN TO DAY SHIFT RN FOR CONTINUITY OF CARE. PT IS IN STABLE CONDITION.
[2019-02-11] MEDS: BLOOD GLUCOSE MONITORING 1 DEV DEV FS SCH ×4 (07:18→21:23)
[2019-02-11 07:20] LABS: ANION GAP 9.8 (8-16); CARBON DIOXIDE 26.2 mmol/L (21-32); CREATININE 2.7 mg/dL (0.7-1.3); MAGNESIUM 2.6 mg/dL (1.8-2.4); PHOSPHORUS 6.6 mg/dL (2.5-4.9)
[2019-02-11 07:45] LABS: BASOPHILS % (MANUAL) 0 % (0-2); EOSINOPHILS % (MANUAL) 0 % (0-4); LYMPHOCYTES % (MANUAL) 10 % (20-46); MONOCYTES % (MANUAL) 7 % (5-12)
--- NOTE | 2019-02-11 08:00 | NUR ---
RECEIVED PATIENT INTUBATED ON VENTILATOR PC MODE FIO2 60% RATE 18 PEEP 12 PRESSURE 20 SO2 90%, ON VERSED 10MGS/HR., FENTANYL 190MCG/MIN., PATIENT OPENS EYES AND WITHDRAWS TO PAIN, SINUS TACHYCARDIA ON MONITOR, WITH OG TUBE ON NEPRO AT 40 ML/ HR. STOPPED AT THIS TIME AND GASTRIC RESIDUAL 230 YELLOWISH. FEEDING STOPPED AT THIS TIME PER PROTOCOL, WITH SANDERS CATHETER YELLOW URINE WITH SEDIMENTS NOTED, WITH RIGHT INTERNAL JUGULAR CENTRAL LINE-SITE ASYMPTOMATIC AND NORMAL SALINE 100ML/HR. INFUSING. OPEN WOUND IN RIGHT LEG WITH CLEAN INTACT DRESSING
--- NOTE | 2019-02-11 09:15 | NUR ---
ZERO GASTRIC RESIDUAL AT THIS TIME. RESTARTED NEPRO 10 CC/HR
[2019-02-11] MEDS: MIDAZOLAM MDV 100 MG in NACL 0.9% 80 ML IV PRN ×2 (09:28→17:32)
[2019-02-11] MEDS: levETIRAcetam 500 MG TAB PO SCH ×2 (09:29→20:24)
[2019-02-11] MEDS: LACTOBACILLUS RHAMNOSUS GG 1 EACH CAP PO SCH (09:29)
[2019-02-11] MEDS: LISINOPRIL 5 MG TAB PO SCH (09:30)
[2019-02-11] MEDS: ASPIRIN 81 MG TAB.CHEW PO SCH (09:30)
[2019-02-11] MEDS: PANTOPRAZOLE 40 MG INJ VIAL IVP SCH (09:30)
[2019-02-11] MEDS: SODIUM FERRIC GLUCONATE 125 MG in NACL 0.9% 100 ML IV SCH (11:33)
--- NOTE | 2019-02-11 13:29 | NUR ---
PATIENT HAS A VISITOR AT BEDSIDE "SOURAV"
--- NOTE | 2019-02-11 13:36 | NUR ---
PT SLEEPING WITH NO SIGNS OF DISTRESS NOTED AT THIS TIME NO HHN GIVEN AND FAMILY AT BEDSIDE
[2019-02-11] MEDS: GAUZE TP SCH (13:37)
--- NOTE | 2019-02-11 15:00 | NUR ---
GASTRIC RESIDUAL CHECKED=0 INCREASED FEEDING 20ML/HR
--- NOTE | 2019-02-11 18:03 | NUR ---
DR. GARCIA AT BEDSIDE. CONTINUE PLAN OF CARE
--- NOTE | 2019-02-11 18:52 | NUR ---
Received pt stable on vent support at documented settings, suctioned small amounts of white thin secretions, hhn tx given, tolerated well, no resp distress or SOB noted at this time, 7.5 ETT secured at 27 cm at the teeth, alarms set and audible, vent plugged into red outlet, ambu bag at bedside, cont pulse ox on, will cont to monitor.
--- NOTE | 2019-02-11 19:26 | NUR ---
REPORT GIVEN TO NIGHT RN
[2019-02-11] MEDS: ATORVASTATIN 20 MG TAB PO SCH (20:24)
[2019-02-12] VITALS (74 sets, daily range): BP systolic 93–149; BP diastolic 45–85
[2019-02-12] MEDS: fentaNYL 1 MG in NACL 0.9% 80 ML IV PRN ×2 (03:29→08:39)
[2019-02-12] MEDS: MEROPENEM 1,000 MG in NACL 0.9% 100 ML IV SCH ×3 (05:10→20:48)
[2019-02-12] MEDS: NACL 0.9% 1,000 ML IV SCH ×2 (05:50→15:38)
[2019-02-12 05:55] LABS: BASOPHILS % (AUTO) 0.2 % (0.0-2.0); EOSINOPHILS % (AUTO) 0.2 % (0.0-4.0); HEMATOCRIT 26.7 % (36-52); HEMOGLOBIN 8.3 g/dL (12.0-18.0); LYMPHOCYTES # (AUTO) 1.3 K/uL (2.0-11.5); LYMPHOCYTES % (AUTO) 6.3 % (20.5-51.1); MEAN CORPUSCULAR HEMOGLOBIN 25 pg (27-31); MEAN CORPUSCULAR HGB CONC 31 g/dL (33-37); MEAN CORPUSCULAR VOLUME 78.6 fL (80-94); MONOCYTES # (AUTO) 2.1 K/uL (0.8-1.0); MONOCYTES % (AUTO) 10.3 % (1.7-9.3); NEUTROPHILS # (AUTO) 16.7 K/uL (1.8-7.7); PLATELET COUNT (AUTO) 374 K/uL (140-450); RED BLOOD CELL COUNT(AUTO) 3.39 MIL/uL (4.20-6.10); RED CELL DISTRIBUTION WIDTH 16.6 % (11.6-13.7); WHITE BLOOD COUNT (AUTO) 20.1 K/uL (4.8-10.8)
[2019-02-12 06:01] LABS: ANION GAP 15.2 (8-16); CARBON DIOXIDE 22.4 mmol/L (21-32); CREATININE 3.2 mg/dL (0.7-1.3); POTASSIUM 5.6 mmol/L (3.5-5.1)
[2019-02-12] MEDS: ALBUTEROL SULFATE/IPRATROPIU 3 ML SOL IH SCH ×3 (07:07→18:47)
[2019-02-12] MEDS: BUDESONIDE 0.5 MG/2 ML NEBU INH SCH ×2 (07:24→18:47)
[2019-02-12] MEDS: BLOOD GLUCOSE MONITORING 1 DEV DEV FS SCH ×4 (07:24→20:47)
[2019-02-12] MEDS: MIDAZOLAM MDV 100 MG in NACL 0.9% 80 ML IV PRN ×3 (07:27→09:54)
--- NOTE | 2019-02-12 07:30 | NUR ---
OBTAINED REPORT FROM CONTINUING EDUCATION INSTRUCTOR NURSE AT BEDSIDE, PT IS SEDATED, RASS -4, SLUGGISH PUPIL NOTED, ETT TO VENT WITH FIO2 60, PC 20, R 18, PEEP 8, RHONCHI LUNG SOUNDS MITCH, O2 SAT 95%, ST ON COMMERCIAL COORDINATOR, +2 PITTING EDEMA NOTED TO ALL EXTREMITIES, SOFT ROUND ABDOMEN WITH HYPOACTIVE BOWEL SOUNDS, OGT IN PLACE, FEEDING WITH NEPRO AT 20 ML/HR, 60ML RESIDUALS NOTED, SANDERS CATHETER IN PLACE WITH CLEAR SEDIMENT PAMELA URINE VIA GRAVITY, GENERALIZED WEAKNESS TO ALL EXTREMITIES, SKIN IS WARM AND DRY TO TOUCH, OPEN WOUND TO RIGHT LOWER LEG, DRESSING C/D/I, CENTRAL LINE TO RIJ, TLC, PATENT, RUNNING VERSED AT 7MG/HR, FENTANYL AT 190 MCG/HR, NS AT 100ML/HR, HOB ELEVATED 30 DEGREES, SAFETY MEASURES IN PLACE, WILL CONTINUE TO MONITOR.
--- NOTE | 2019-02-12 07:30 | NUR ---
RECEIVED PT ON DOCUMENTED SETTINGS, NO DISTRESS NOTED AT THIS TIME. BVM AT BEDSIDE ALARMS SET AND AUDIBLE. EQUIPMENT PLUGGED INTO RED OUTLETS.
--- NOTE | 2019-02-12 08:15 | NUR ---
ORAL CARE PROVIDED, POSITION CHANGED FOR OFF LOAD PRESSURE.
[2019-02-12] MEDS: PANTOPRAZOLE 40 MG INJ VIAL IVP SCH (08:37)
[2019-02-12] MEDS: LISINOPRIL 5 MG TAB PO SCH (08:38)
[2019-02-12] MEDS: ASPIRIN 81 MG TAB.CHEW PO SCH (08:38)
[2019-02-12] MEDS: LACTOBACILLUS RHAMNOSUS GG 1 EACH CAP PO SCH (08:38)
[2019-02-12] MEDS: levETIRAcetam 500 MG TAB PO SCH ×2 (08:38→20:48)
--- NOTE | 2019-02-12 08:40 | NUR ---
DR. BUTLER CAME IN TO SEE PT AT BEDSIDE, UPDATED PT'S CONDITION, WILL FOLLOW UP WITH NEW ORDERS.
[2019-02-12] MEDS ORDERED: VANCOMYCIN 1GM/DEXT 5% PREMIX 200 ML IV SCH ×2 (09:00→14:00)
--- NOTE | 2019-02-12 09:00 | NUR ---
SCHEDULED MEDICATION GIVEN VIA GT, PT TOLERATED WELL.
--- NOTE | 2019-02-12 09:50 | NUR ---
DR. DORANTES CAME IN TO SEE PT AT BEDSIDE, UPDATED PT'S CONDITION, WILL FOLLOW UP WITH NEW ORDERS.
[2019-02-12 09:51] LABS: MAGNESIUM 2.7 mg/dL (1.8-2.4); PHOSPHORUS 8.7 mg/dL (2.5-4.9)
--- NOTE | 2019-02-12 10:00 | NUR ---
NO CHANGE OF CONDITION AT THIS TIME, VSS, FLACC 0, RASS -4, SEDATION VACATION STARTED, POSITION CHANGED FOR OFF LOAD PRESSURE. Addendum: 02/12/19 at 1109 by Augustina Neil RN NOT SEDATION VACATION, IT IS SEDATION TITRATE DOWN.
[2019-02-12] MEDS: CALCIUM ACETATE 667 MG TAB PO SCH ×2 (11:26→16:49)
--- NOTE | 2019-02-12 12:00 | NUR ---
NO S/S OF DISTRESS, VSS, FLACC 0, RASS -3, ORAL CARE PROVIDED, POSITION CHANGED FOR OFF LOAD PRESSURE. Addendum: 02/12/19 at 1426 by Augustina Neil RN SAVANNA Gannon
[2019-02-12] MEDS ORDERED: VANCOMYCIN PER PHARMACY MC PRN (12:40)
[2019-02-12] MEDS: GAUZE TP SCH (12:41)
--- NOTE | 2019-02-12 13:00 | NUR ---
INCREASED PTS RATE TO [address] BUTLER IN RESPONSE TO PTS ABG RESULTS
--- NOTE | 2019-02-12 14:00 | NUR ---
PT IS UNRESPONSIVE, RASS -5, SEDATION BEING TITRATED DOWN, NOW ON HOLD, MD AWARE, POSITION CHANGED FOR OFF LOAD PRESSURE, WILL CONTINUE TO MONITOR
--- NOTE | 2019-02-12 15:08 | NUR ---
02/12/19 RD FOLLOW UP COMPLETED PLEASE REFER TO NUTRITION ASSESSMENT UNDER CARE ACTIVITY FOR ESTIMATED NUTRITIONAL NEEDS. 1. CONTINUE NEPRO @ 40 ML/HR -THIS PROVIDES 960 ML OF TOTAL VOLUME, 1728 KCAL, 77 GM OF PROTEIN; WHICH MEETS 100% OF ESTIMATED KCAL AND PROTEIN NEEDS. 2. CONTINUE FREE WATER FLUSH [address] TO FOLLOW-UP 2-3 DAYS, HIGH RISK PIERCE PATEL RD
[2019-02-12] MEDS: LEVOFLOXACIN 750 MG/D5W PREMIX 150 ML IV SCH (15:38)
--- NOTE | 2019-02-12 16:00 | NUR ---
PT IS LETHARGIC, STILL UNRESPONSIVE TO PAINFUL STIMULI, VSS, NO S/S OF DISTRESS, PM CARE AND ORAL CARE PROVIDED, F/C CARE DONE, POSITION CHANGED FOR OFF LOAD PRESSURE.
--- NOTE | 2019-02-12 19:10 | NUR ---
REPORT GIVEN TO ESCORT BLIND RN AT BEDSIDE, PT IS STILL UNRESPONSIVE, VSS AT THIS TIME.
--- NOTE | 2019-02-12 19:36 | NUR ---
RECEIVED REPORT FROM TIM KIM RN. PATIENT IS OFF OF FENTANYL AND ATIVAN GTT. PT REPOSITIONED. PATIENT ON VENT AND SAT 96. WILL CONTINUE TO MONITOR.
[2019-02-12] MEDS: ATORVASTATIN 20 MG TAB PO SCH (20:48)
[2019-02-13] VITALS (98 sets, daily range): BP systolic 110–152; BP diastolic 54–81
[2019-02-13] MEDS: MORPHINE SULFATE 2 MG/ML SYR IVP PRN
--- NOTE | 2019-02-13 00:13 | NUR ---
PATIENT TACHYPNEIC, REPOSITIONED AND ADMINISTERED MS 2MG IVP PER MD ORDER. WILL CONTINUE TO MONITOR.
--- NOTE | 2019-02-13 00:40 | NUR ---
MD TOBIAS MADE AWARE OF PT TACHYPNIA AND MS 2MG IVP ADMINISTERED WHICH HAS NOT RELIEVED THE TACHYPNIA. PT IS RASS -5. AWAITING FURTHER ORDERS AND WILL CONTINUE TO MONITOR.
[2019-02-13] MEDS: LORazepam 2 MG/ML VIAL IVP PRN (01:15)
--- NOTE | 2019-02-13 01:16 | NUR ---
MD TOBIAS MADE AWARE PT RASS -5 BUT TACHYPNEIC. ATIVAN ADMINISTERED PER ORDER. WILL CONTINUE TO MONITOR FOR DECREASED RESPIRATIONS WNL.
[2019-02-13] MEDS: ALBUTEROL SULFATE/IPRATROPIU 3 ML SOL IH SCH ×4 (02:07→18:31)
--- NOTE | 2019-02-13 02:10 | NUR ---
ABG DRAWN WITHOUT INCIDENT. RESULTS GIVEN TO DR. DEGROOT. DR. DEGROOT IN TO SEE PATIENT AT BEDSIDE. VENT CHANGES MADE ACCORDINGLY. Pinsp 26, RATE 16, iTIME 0.6, +10, 50%. WILL CONTINUE TO MONITOR.
--- NOTE | 2019-02-13 02:22 | NUR ---
VENT CHECK DONE. VENT ALARMS ON AND AUDIBLE. BREATHING TREATMENT ADMINISTERED. TOLERATED TX WELL, NO ADVERSE SIDE EFFECTS. AMBU BAG AT BEDSIDE. WILL CONTINUE TO MONITOR.
[2019-02-13] MEDS: NACL 0.9% 1,000 ML IV SCH ×3 (03:00→22:18)
[2019-02-13] MEDS: PROPOFOL 1000 MG/100 ML PREMIX 100 ML IV PRN ×5 (03:30→21:01)
[2019-02-13] MEDS: MEROPENEM 1,000 MG in NACL 0.9% 100 ML IV SCH ×3 (04:07→20:55)
--- NOTE | 2019-02-13 06:40 | NUR ---
RECVD PT ON CARESCAPE. VENT SETTINGS: PC 26, RR 20, I-TIME 0.60, +10, FIO2 50%. ALARMS ON & AUDIBLE. AMBUBAG AT HOB. VENT IS PLUGGED INTO RED OUTLET. I/L TX GIVEN WITH DUONEB 3ML & PULMICORT 0.5MG WITH NO ADVERSE RXN POST TX. BREATH SOUNDS WERE RHONCHI PRE & POST TX. SUCTIONED PT WITH VERY SCANT CLEAR SECREATIONS. PT IS ORALLY INTUBATED WITH 7.5 E.T. TUBE, SECURED WITH ANCHOR FAST AT 27CM AT KEFT SIDE OF MOUTH & SKIN INTEGRITY WAS GOOD. PT IS SEDATED WITH NO SIGNS OF DISTRESS AT THIS TIME.
[2019-02-13 06:44] LABS: HEMATOCRIT 24.5 % (36-52); HEMOGLOBIN 7.8 g/dL (12.0-18.0); MEAN CORPUSCULAR HEMOGLOBIN 25 pg (27-31); MEAN CORPUSCULAR HGB CONC 32 g/dL (33-37); MEAN CORPUSCULAR VOLUME 77.7 fL (80-94); PLATELET COUNT (AUTO) 343 K/uL (140-450); RED BLOOD CELL COUNT(AUTO) 3.16 MIL/uL (4.20-6.10); RED CELL DISTRIBUTION WIDTH 16.8 % (11.6-13.7); WHITE BLOOD COUNT (AUTO) 18.5 K/uL (4.8-10.8)
[2019-02-13] MEDS: BLOOD GLUCOSE MONITORING 1 DEV DEV FS SCH ×3 (06:49→16:30)
[2019-02-13] MEDS: BUDESONIDE 0.5 MG/2 ML NEBU INH SCH ×2 (06:55→18:31)
--- NOTE | 2019-02-13 07:01 | NUR ---
rass -5 throughout shift. md goins made aware and was at bedside at 2am. will continue to monitor.
--- NOTE | 2019-02-13 07:15 | NUR ---
OBTAINED REPORT FROM ELECTRIC FAN ASSEMBLER NURSE AT BEDSIDE, PT IS SEDATED, RASS -5, SLUGGISH PUPIL NOTED, ETT TO VENT WITH FIO2 50, PC 26, R 20, PEEP 10, RHONCHI LUNG SOUNDS MITCH, O2 SAT 100%, SR ON COMPUTER SYSTEMS TECHNOLOGY INSTRUCTOR, +2 PITTING EDEMA NOTED TO ALL EXTREMITIES, SOFT ROUND ABDOMEN WITH HYPOACTIVE BOWEL SOUNDS, OGT IN PLACE, FEEDING WITH NEPRO AT 40 ML/HR, 0 ML RESIDUALS NOTED, SANDERS CATHETER IN PLACE WITH SEDIMENT PAMELA URINE VIA GRAVITY, GENERALIZED WEAKNESS TO ALL EXTREMITIES, SKIN IS WARM AND DRY TO TOUCH, OPEN WOUND TO RIGHT LOWER LEG, DRESSING C/D/I, CENTRAL LINE TO RIJ, TLC, PATENT, RUNNING PROPOFOL AT 20 MG/HR, AND NS AT 100ML/HR, DRY WEIGHT 117KG, HOB ELEVATED 30 DEGREES, SAFETY MEASURES IN PLACE, WILL CONTINUE TO MONITOR.
[2019-02-13 07:26] LABS: EOSINOPHILS % (MANUAL) 2 % (0-4); LYMPHOCYTES % (MANUAL) 5 % (20-46); MONOCYTES % (MANUAL) 4 % (5-12)
[2019-02-13 07:34] LABS: MAGNESIUM 2.6 mg/dL (1.8-2.4); PHOSPHORUS 6.7 mg/dL (2.5-4.9)
[2019-02-13 07:37] LABS: ANION GAP 16.6 (8-16); CARBON DIOXIDE 21.3 mmol/L (21-32); CREATININE 3.2 mg/dL (0.7-1.3); POTASSIUM 4.9 mmol/L (3.5-5.1)
--- NOTE | 2019-02-13 08:00 | NUR ---
ORAL CARE PROVIDED, POSITION CHANGED FOR OFF LOAD PRESSURE.
--- NOTE | 2019-02-13 08:27 | NUR ---
ABG DRAWN ON RR W/OUT INCIDENT.
[2019-02-13] MEDS: LACTOBACILLUS RHAMNOSUS GG 1 EACH CAP PO SCH (08:34)
[2019-02-13] MEDS: levETIRAcetam 500 MG TAB PO SCH ×2 (08:34→20:56)
[2019-02-13] MEDS: PANTOPRAZOLE 40 MG INJ VIAL IVP SCH (08:34)
[2019-02-13] MEDS: CALCIUM ACETATE 667 MG TAB PO SCH ×2 (08:34→11:41)
[2019-02-13] MEDS: ASPIRIN 81 MG TAB.CHEW PO SCH (08:34)
--- NOTE | 2019-02-13 09:00 | NUR ---
SCHEDULED MEDICATION GIVEN, PT TOLERATED WELL.
--- NOTE | 2019-02-13 09:30 | NUR ---
DR. DORANTES CAME IN TO SEE PT AT BEDSIDE, UPDATED PT'S CONDITION, DR. DORANTES SAID NOT GOING TO DO HD FOR THE PATIENT. DR. GOVEA MADE AWARE.
--- NOTE | 2019-02-13 10:00 | NUR ---
AT 1000 PT WAS TRANSPORTED TO CT WITH 100%FIO2 VIA AMBUBAG. AT 1012 PT RETURNED TO ICU & PLACED BACK ON VENT WITH SAME PREV. SETTINGS
--- NOTE | 2019-02-13 10:20 | NUR ---
PT IS BACK FROM CT.
--- NOTE | 2019-02-13 12:00 | NUR ---
NO CHANGE OF CONDITION AT THIS TIME, RASS -5, VSS, ORAL CARE PROVIDED, POSITION CHANGED FOR OFF LOAD PRESSURE.
[2019-02-13] MEDS: GAUZE TP SCH (12:54)
--- NOTE | 2019-02-13 13:00 | NUR ---
WOUND CARE PROVIDED TO RIGHT LOWER EXTREMITY, NEW DRESSING APPLIED ORDERED. PT TOLERATED WELL.
--- NOTE | 2019-02-13 14:00 | NUR ---
NO CHANGE OF CONDITION, VSS, FLACC 0, POSITION CHANGED FOR OFF LOAD PRESSURE.
--- NOTE | 2019-02-13 15:28 | NUR ---
DR. BUTLER CAME IN TO SEE PT AT BEDSIDE, UPDATED PT'S CONDITION, WILL FOLLOW UP WITH NEW ORDERS.
--- NOTE | 2019-02-13 18:00 | NUR ---
NO S/S OF DISTRESS, VSS, FLACC 0, POSITION CHANGED FOR OFF LOAD PRESSURE.
--- NOTE | 2019-02-13 18:39 | NUR ---
RECEIVED INTUBATED PT WITH A 7.5 ETT SECURED @27 TEETH/GUMS ON VENT. SETTINGS PC Pinsp 26, R 20, PEEP 10 AND FIO2 50%. PT SUCTIONED OBTAINED SMALL AMOUNT OF THIN PALE YELLOW SECRETIONS, AIRWAY IS PATENT AND ETT REMAINS SECURE WITH ANCHOR FAST DEVICE. PT IS NOT AWAKE NOT ALERT AND IS TACHYPNEIC AT THIS TIME. VENT IS PLUGGED INTO A RED OUTLET WITH ALARMS ON AND FUNCTIONING.
--- NOTE | 2019-02-13 19:13 | NUR ---
REPORT GIVEN TO PSYCHOMETRICIAN NURSE FOR CONTINUE OF CARE, PT IS IN STABLE CONDITION AT THIS TIME.
--- NOTE | 2019-02-13 19:15 | NUR ---
RECEIVED REPORT FROM AM SHIFT. PT SEDATED. RASS -5. DRY WEIGHT USED 117 KG. PERRL 3MM. SLUGGISH. ETT TO VENT. 7.5 TAPED AT 26MM. BREATH SOUNDS DIMINISHED BILAT. VENT MODE AC/PC FIO2 50 PINSP 26 RATE 16 PEEP 10. SR ON MONITOR S1S2 SOUNDS PRESENT. EDEMA NOTED TO BLE 2+. BOWEL SOUNDS ACTIVE X4 QUADRANTS. ABD NONDISTENDED SOFT ROUND. ON NEPRO 40ML WITH 200 ML Q4 H20. F/C IN PLACE. URINE CLEAR YELLOW. SEVERE WEAKNESS NOTED. RIGHT IJ CENTRAL LINE. DRESSING INTACT. ON PROPOFOL DRIP 25MCG/KG/MIN. WOUND NOTED ON R LE. BED IN LOWEST POSITION. HOB 30. SR UP X4. WILL CONTINUE TO MONITOR.
--- NOTE | 2019-02-13 20:36 | NUR ---
DR. BISHOP AT BEDSIDE AT THIS TIME.
[2019-02-13] MEDS: ATORVASTATIN 20 MG TAB PO SCH (20:55)
--- NOTE | 2019-02-13 21:40 | NUR ---
RESP INCREASING TO 40-42 BREATHS PER MIN. PROPOFOL TITRATED UP TO 30 MCG = 21.06 ML/HR
--- NOTE | 2019-02-13 21:45 | NUR ---
PT TOLERATING PROPOFOL DRIP WELL. RESP 12-18. RASS -5 MAINTAINED.
--- NOTE | 2019-02-13 22:25 | NUR ---
PT TURNED AND REPOSITIONED AT THIS TIME. RT AT BEDSIDE.
--- NOTE | 2019-02-13 23:15 | NUR ---
PT RESTING QUIETLY AT THIS TIME. NO SIGNS OF ACUTE DISTRESS NOTED.
[2019-02-14] VITALS (108 sets, daily range): BP systolic 88–158; BP diastolic 39–98
--- NOTE | 2019-02-14 00:43 | NUR ---
PT AFEBRILE. RASS -5 MAINTAINED. BED IN LOWEST POSITION. ORAL CARE PROVIDED AT THIS TIME.
[2019-02-14] MEDS: ALBUTEROL SULFATE/IPRATROPIU 3 ML SOL IH SCH ×4 (01:02→19:28)
--- NOTE | 2019-02-14 01:09 | NUR ---
PT SUCTIONED OBTAINED SMALL AMOUNT OF THICK YELLOW SECRETIONS, AIRWAY IS PATENT AND ETT REMAINS SECURE. WILL CONTINUE TO MONITOR.
[2019-02-14] MEDS: MORPHINE SULFATE 2 MG/ML SYR IVP PRN (01:32)
--- NOTE | 2019-02-14 01:38 | NUR ---
VITAL SIGNS UNSTABLE. RR 43 AT THIS TIME. WILL ADMINISTER MORPHINE IVP.
[2019-02-14] MEDS: PROPOFOL 1000 MG/100 ML PREMIX 100 ML IV PRN ×6 (01:47→22:24)
--- NOTE | 2019-02-14 02:56 | NUR ---
PT RESTING QUIETLY AT THIS TIME. NO SIGNS OF ACUTE DISTRESS NOTED. RASS -5. NOTED.
--- NOTE | 2019-02-14 03:16 | NUR ---
RT AT BEDSIDE AT THIS TIME.
[2019-02-14] MEDS: MEROPENEM 1,000 MG in NACL 0.9% 100 ML IV SCH ×3 (04:00→20:36)
--- NOTE | 2019-02-14 04:06 | NUR ---
FEEDING TUBE CHANGED AT THIS TIME.
--- NOTE | 2019-02-14 04:57 | NUR ---
AM CARE PROVIDED AT THIS TIME
--- NOTE | 2019-02-14 05:07 | NUR ---
LAB AT BEDSIDE FOR AM DRAWS
--- NOTE | 2019-02-14 05:28 | NUR ---
RT AT BEDSIDE AT THIS TIME
--- NOTE | 2019-02-14 05:35 | NUR ---
PT TACHYPNEIC AT THIS TIME. PT REMAINS ON DOCUMENTED VENT SETTINGS. ETT REMAINS SECURE WITH A PATENT AIRWAY. VENT ALARMS REMAIN ON AND FUNCTIONING.
--- NOTE | 2019-02-14 06:34 | NUR ---
DR. GOVEA AT BEDSIDE AT THIS TIME. UPDATED ON PTS CURRENT CONDITION. WILL CONTINUE TO FOLLOW UP ADDITIONAL ORDERS.
--- NOTE | 2019-02-14 07:15 | NUR ---
ENDORSED CARE TO INCOMING SHIFT FOR CONTINUITY OF CARE.
[2019-02-14] MEDS: BUDESONIDE 0.5 MG/2 ML NEBU INH SCH ×2 (07:36→19:28)
--- NOTE | 2019-02-14 07:36 | NUR ---
RECEIVED PT ON DOCUMENTED SETTINGS, ETT SECURE AND PATENT, ALARMS SET AND AUDIBLE, VENT PLUGGED INTO RED OUTLETS, BVM AT BEDSIDE. PT IS TACHYPNEIC IN THE MID TO HIGH 30S
--- NOTE | 2019-02-14 08:00 | NUR ---
PATIENT INTUBATED 7.5 TUBE 27 IN THE LIP AND ON VENTILATOR ON PC FIO2 50%, PEEP 10 RATE 20, SO2 >94%, RESPIRATIONS IN THE 30s WILL RECOMMEND TO PHYSICIAN RESTART FENTANYL DRIP, SINUS RHYTHM ON MONITOR, ON DIPRIVAN 30MCG/KG/HR., NORMAL SALINE 100 ML/HR THROUGH RIGHT INTERNAL JUGULAR CENTRAL LINE, WITH OG TUBE TO NEPRO 40ML/HR, WATER FLUSH 200ML Q 4HOURS. TOLERATING AND NO RESIDUALS, FR. 16 SANDERS CATHETER TO UROBAG YELLOW URINE NOTED WITH SOME SEDIMENTS, OPEN WOUND RIGHT LOWER LEG WITH CLEAN DRY DRESSING, GENERALIZED EDEMA, LIMBS ELEVATED WITH PILLOWS. Addendum: 02/14/19 at 1144 by Kerline Fuentes RN dry weight and also received on the propofol pump set at 117 kgs Addendum: 02/14/19 at 1458 by Kerline Fuentes RN 08HOURS-CORRECTION: DIPRIVAN 30 MCG/KG/MIN
[2019-02-14 08:12] LABS: ANION GAP 12.3 (8-16); CARBON DIOXIDE 24.8 mmol/L (21-32); CREATININE 2.3 mg/dL (0.7-1.3); POTASSIUM 5.1 mmol/L (3.5-5.1)
[2019-02-14 08:19] LABS: HEMATOCRIT 27.5 % (36-52); HEMOGLOBIN 8.6 g/dL (12.0-18.0); MEAN CORPUSCULAR HEMOGLOBIN 24 pg (27-31); MEAN CORPUSCULAR HGB CONC 31 g/dL (33-37); MEAN CORPUSCULAR VOLUME 77.6 fL (80-94); PLATELET COUNT (AUTO) 380 K/uL (140-450); RED BLOOD CELL COUNT(AUTO) 3.54 MIL/uL (4.20-6.10); RED CELL DISTRIBUTION WIDTH 17.2 % (11.6-13.7); WHITE BLOOD COUNT (AUTO) 19.7 K/uL (4.8-10.8)
[2019-02-14 08:34] LABS: MAGNESIUM 2.7 mg/dL (1.8-2.4); PHOSPHORUS 5.8 mg/dL (2.5-4.9)
[2019-02-14] MEDS: levETIRAcetam 500 MG TAB PO SCH ×2 (08:51→20:35)
[2019-02-14] MEDS: ASPIRIN 81 MG TAB.CHEW PO SCH (08:51)
[2019-02-14] MEDS: PANTOPRAZOLE 40 MG INJ VIAL IVP SCH (08:51)
[2019-02-14] MEDS: LACTOBACILLUS RHAMNOSUS GG 1 EACH CAP PO SCH (08:51)
[2019-02-14] MEDS: NACL 0.9% 1,000 ML IV SCH (08:57)
[2019-02-14] MEDS: BLOOD GLUCOSE MONITORING 1 DEV DEV FS SCH (08:58)
--- NOTE | 2019-02-14 09:00 | NUR ---
DR. GOVEA AT BEDSIDE AND ACCORDING TO HIM OK TO RESTART FENTANYL DRIP AND OK TO GIVE HEPARIN SC GUIDO LINE INSERTION WILL BE ON HOLD
[2019-02-14] MEDS: INSULIN LISPRO SLIDING SCALE 100 UNITS/ML VIAL SUBQ PRN (09:12)
[2019-02-14] MEDS: fentaNYL 1 MG in NACL 0.9% 80 ML IV PRN ×3 (09:16→20:42)
[2019-02-14 09:34] LABS: EOSINOPHILS % (MANUAL) 2 % (0-4); LYMPHOCYTES % (MANUAL) 5 % (20-46); MONOCYTES % (MANUAL) 8 % (5-12)
--- NOTE | 2019-02-14 11:30 | NUR ---
DR. DORANTES IN AND EXAMINED PATIENT. NO NEED FOR GUIDO CATHETER INSERTION AND DIALYSIS AT THIS TIME. WILL CONTINUE TO MONITOR PATIENT.
--- NOTE | 2019-02-14 11:30 | NUR ---
DR. BUTLER HERE FOR ROUNDS AND PER PHYSICIAN INCREASE DIPRIVAN RIGHT AWAY TO 50 MCG/KG/HR., FENTANYL INCREASE STAT TO 200MCG/HR PATIENT BREATHING IN THE 40s NOT PULLING VOLUMES Addendum: 02/14/19 at 1158 by Kerline Fuentes RN 1130 HOURS CONTINUATION- PER DR. BUTLER RESTART VERSED AT 5MGS/HR Addendum: 02/14/19 at 1459 by Kerline Fuentes RN CORRECTION DIPRIVAN 50 MCG/KG/MIN
[2019-02-14] MEDS: VANCOMYCIN 1GM/DEXT 5% PREMIX 200 ML IV SCH (11:35)
--- NOTE | 2019-02-14 11:35 | NUR ---
DR. DORANTES HERE FOR ROUNDS. INFORMED HIM OF PATIENT'S CHEST XRAY IMPRESSION IS PULMONARY EDEMA. PER PHYSICIAN "GO AHEAD AND CHANGE NORMAL SALINE TO KVO RATE". NORMAL SALINE CHANGED TO 5ML/HR FROM 100ML/HR
--- NOTE | 2019-02-14 11:57 | NUR ---
FOLLOWED UP RENATA OF PHARMACY FOR THE VERSED DRIP
[2019-02-14] MEDS: MIDAZOLAM MDV 100 MG in NACL 0.9% 80 ML IV PRN (12:36)
[2019-02-14] MEDS: GAUZE TP SCH (13:00)
--- NOTE | 2019-02-14 13:29 | NUR ---
CALLED DR. BUTLER AND UPDATED OF PATIENT'S CONDITION AFTER VERSED 5 MGS/HR WAS ADDED ON TOP OF FENTANYL 200MCG/HR, DIPRIVAN 50 MCG/HR. PATIENT RR NOW DOWN TO 20-30 FROM 40s, NOW TIDAL VOLUMES ARE 380-500 FROM 200s. PER PHYSICIAN OK NO NEED TO START PARALYTICS Addendum: 02/14/19 at 1459 by Kerline Fuentes RN CORRECTION DIPRIVAN 50 MCG/KG/MIN
--- NOTE | 2019-02-14 13:36 | NUR ---
ITIME CHANGED TO 1.[address] BUTLER
[2019-02-14] MEDS: LEVOFLOXACIN 750 MG/D5W PREMIX 150 ML IV SCH (14:20)
--- NOTE | 2019-02-14 14:48 | NUR ---
UPDATED DR. GOVEA OF PATIENT'S PLAN OF CARE, DR. BUTLER INITIALLY WANTED TO PARALYZE PATIENT BUT NOW SHE IS OK WITH DIPRIVAN, VERSED, FENTANYL. PHYSICIANS AWARE THAT PATIENT HAS NO EYE OPENING AND MOTOR MOVEMENT SINCE. PER DR. GOVEA WILL CHANGE ORDER TO RASS-5
[2019-02-14] MEDS ORDERED: MORPHINE SULFATE 2 MG/ML SYR IVP PRN (15:15)
--- NOTE | 2019-02-14 18:00 | NUR ---
CHECKED GASTRIC RESIDUAL AND IT'S ZERO. PATIENT TOLERATING NEPRO 40ML/HR., PATIENT RR IN THE 20s SO2 >94%, SBP IN THE 90s
--- NOTE | 2019-02-14 19:30 | NUR ---
RECEIVED RPT FROM AM SHIFT. PT IS ON SEDATION. PT ETT TO VENT WITH FIO2 50% RATE 20 AND PEEP 10, ETT NO 7.5 . RHONCHI TO BILATERAL LUNGS. PT IS SEDATED WITH PROPOFOL AT 30 MCG/KG/HR,FENTANYL AT 200 MCG/HR AND VERSED AT 5 MG/HR TO KEPT RASS -5 ORDER MD. LIQUOR STORE MANAGER SHOWS SR. PER-REPORT PT SBP WAS LOW ON 90"S AND MD WAS AWARE. CENTRAL LINE RIGHT IJ TRIPLE LUMENS INTACT WELL.NO REDNESS NOTED ON AREA. ON NS AT 5 CC/HR AND IV ABTS ORDER. OGT INPLACE WITH FEEDING NEPRO AT 40 CC/HR AND H2O AT 200 CC Q 4HRS WITH 40 CC RESIDUAL NOTED. SKIN WARM TO TOUCH. ABD SOFT NON DISTENDED. F/C IN PLACE WITH YELLOW CLOUDY URINE. OPEN WOUND TO RIGHT LOWER LEG,TX IN PROGRESS. EDEMA TO BUES / BLES ELEVATED AREAS WITH PILLOWS AND REPOSITION FOR COMFORT. GENTLE CARE GIVEN. CONT TO MONITOR CLOSELY. Addendum: 02/14/19 at 2305 by Samira Senior RN CLARIFICATION PROPOFOL AT 30 MCG/KG/MIN
--- NOTE | 2019-02-14 19:38 | NUR ---
Received pt stable on vent support at documented settings, suctioned small amount of thin clear white secretions, hhn tx given, tolerated well, no resp distress or SOB noted at this time, 7.5 ETT secured/patent at 27 cm, alarms set and audible, ambu bag at bedside, vent plugged into red outlet, cont pulse ox on, will cont to monitor.
[2019-02-14] MEDS: ATORVASTATIN 20 MG TAB PO SCH (20:35)
--- NOTE | 2019-02-14 21:20 | NUR ---
NIGHT MEDS GIVEN TOLERATED WELL, MEROPENEM IV ABTS GIVEN ORDER.
--- NOTE | 2019-02-14 22:30 | NUR ---
AT 22:24 PROPOFOL DECREASE FROM 30 MCG/KG/MIN TO 25 MCG/KG/HR D/T BP 89/41 P 79 AND SPO2 94 % RASS -5. AND AT 22:30 BP 90/41,HR 78,SPO2 94%. CONTINUE TO MONITOR.
--- NOTE | 2019-02-14 23:03 | NUR ---
CLARIFICATION PROPOFOL AT 30 MCG/KG/MIN Addendum: 02/14/19 at 2308 by Samira Senior RN CLARIFICATION PROPOFOL AT 25 MCG/KG/MIN AND FENTANYL DECREASE TO 141.5 AT 22:50 D/T BP WAS LOW 88/39 P 78 R 24 SPO2 94 AT 22:55 BP 93/42,P 78,R 23 SPO2 94% CONTINUE TO MONITOR CLOSELY.
[2019-02-15] VITALS (107 sets, daily range): BP systolic 83–131; BP diastolic 34–73
--- NOTE | 2019-02-15 | NUR ---
PT IS NO FEVER T 97.6. RASS -5.
[2019-02-15] MEDS: ALBUTEROL SULFATE/IPRATROPIU 3 ML SOL IH SCH ×4 (01:07→19:55)
--- NOTE | 2019-02-15 02:04 | NUR ---
PT IS SEDATED RASS -5, REPOSITION FOR COMFORT.
[2019-02-15] MEDS: fentaNYL 1 MG in NACL 0.9% 80 ML IV PRN ×4 (02:54→22:16)
[2019-02-15] MEDS: PROPOFOL 1000 MG/100 ML PREMIX 100 ML IV PRN ×3 (02:56→22:49)
[2019-02-15] MEDS: MIDAZOLAM MDV 100 MG in NACL 0.9% 80 ML IV PRN (02:57)
--- NOTE | 2019-02-15 04:00 | NUR ---
AM CARE GIVEN. MOUTH CARE, SPONGE BATH AND F/C CARE GIVEN. KEPT CLEAN AND DRY.
[2019-02-15] MEDS: MEROPENEM 1,000 MG in NACL 0.9% 100 ML IV SCH ×4 (04:54→20:04)
--- NOTE | 2019-02-15 05:50 | NUR ---
AM MEDS GIVEN AND LABS FOR TODAY DRAWN. ORDER GIVEN BY .
[2019-02-15 06:21] LABS: ANION GAP 11.8 (8-16); CARBON DIOXIDE 25.8 mmol/L (21-32); CREATININE 2.6 mg/dL (0.7-1.3); POTASSIUM 5.6 mmol/L (3.5-5.1)
[2019-02-15 06:22] LABS: MAGNESIUM 2.7 mg/dL (1.8-2.4); PHOSPHORUS 7.4 mg/dL (2.5-4.9)
[2019-02-15] MEDS: NACL 0.9% 1,000 ML IV SCH ×2 (06:35→16:32)
--- NOTE | 2019-02-15 06:37 | NUR ---
COME TO CHECK PT, MADE AWARE BUN 99 AND BP WAS AROUND 90'S . CHANGE IV NS FROM 5 CC/HR TO 100 CC/HR.
[2019-02-15] MEDS: BUDESONIDE 0.5 MG/2 ML NEBU INH SCH ×2 (06:45→19:55)
--- NOTE | 2019-02-15 06:45 | NUR ---
RECEIVED PT ON DOCUMENTED SETTINGS, ETT SECURE AND PATENT, ALARMS SET AND AUDIBLE, BVM AT BEDSIDE, VENTILATOR PLUGGED INTO RED OUTLETS. NO DISTRESS NOTED AT THIS TIME.
--- NOTE | 2019-02-15 07:00 | NUR ---
PROPOFOL DECREASE TO 20 MCG/KG/MIN D/T DECREASE BP 83/42,P 74,R 22 AND SPO2 94%.
--- NOTE | 2019-02-15 07:15 | NUR ---
MADE AWARE PT BP WAS LOW 80/42 AND HR IS IRREGULAR FROM 200 AND SUDDENLY DOWN TO 76, PER MD WILL COME LATER TO SEE PTS.
--- NOTE | 2019-02-15 07:20 | NUR ---
REPORT GIVEN TO AM SHIFT MADE AWARE BP WAS UNSTABLE.
--- NOTE | 2019-02-15 07:50 | NUR ---
PAGED DR. BUTLER REGARDING ABG VALUES AWAITING CALL BACK
--- NOTE | 2019-02-15 08:00 | NUR ---
PATIENT INTUBATED 7.5 TUBE 27 IN THE LIP AND ON VENTILATOR ON PC FIO2 45%, PEEP 10 RATE 20, SO2 >94%, RESPIRATIONS IN THE 20s, SINUS RHYTHM ON MONITOR, SBP IN THE 90s MAP 50-60, ON DIPRIVAN 20MCG/KG/MIN.(117 KGS ENTERED IN THE PUMP), FENTANYL 141.5 MCG/HR, VERSED 5 MGS/HR., NORMAL SALINE 100 ML/HR THROUGH RIGHT INTERNAL JUGULAR CENTRAL LINE, WITH OG TUBE TO NEPRO 40ML/HR, WATER FLUSH 200ML Q 4HOURS. TOLERATING AND NO RESIDUALS, FR. 16 SANDERS CATHETER TO UROBAG YELLOW URINE NOTED WITH SOME SEDIMENTS, OPEN WOUND RIGHT LOWER LEG WITH CLEAN DRY DRESSING, GENERALIZED EDEMA, LIMBS ELEVATED WITH PILLOWS.
[2019-02-15] MEDS: LACTOBACILLUS RHAMNOSUS GG 1 EACH CAP PO SCH (08:30)
[2019-02-15] MEDS: PANTOPRAZOLE 40 MG INJ VIAL IVP SCH (08:30)
[2019-02-15] MEDS: ASPIRIN 81 MG TAB.CHEW PO SCH (08:31)
[2019-02-15] MEDS: levETIRAcetam 500 MG TAB PO SCH ×2 (08:32→20:05)
[2019-02-15] MEDS: BLOOD GLUCOSE MONITORING 1 DEV DEV FS SCH (08:32)
[2019-02-15 09:08] LABS: BASOPHILS # (AUTO) 0.1 K/uL (0.00-0.22); BASOPHILS % (AUTO) 0.4 % (0.0-2.0); EOSINOPHILS # (AUTO) 0.5 K/uL (0-0.4); EOSINOPHILS % (AUTO) 2.8 % (0.0-4.0); HEMATOCRIT 26.5 % (36-52); LYMPHOCYTES # (AUTO) 1.3 K/uL (2.0-11.5); MEAN CORPUSCULAR HEMOGLOBIN 24 pg (27-31); MEAN CORPUSCULAR HGB CONC 30 g/dL (33-37); MEAN CORPUSCULAR VOLUME 79.4 fL (80-94); MONOCYTES # (AUTO) 1.9 K/uL (0.8-1.0); NEUTROPHILS # (AUTO) 13.1 K/uL (1.8-7.7); NEUTROPHILS % (AUTO) 77.8 % (42.2-75.2); PLATELET COUNT (AUTO) 345 K/uL (140-450); RED BLOOD CELL COUNT(AUTO) 3.34 MIL/uL (4.20-6.10); RED CELL DISTRIBUTION WIDTH 17.4 % (11.6-13.7); WHITE BLOOD COUNT (AUTO) 16.9 K/uL (4.8-10.8)
--- NOTE | 2019-02-15 09:08 | NUR ---
SPOKE WITH MD BUTLER REGARDING PT'S ABG RESULTS. PER MD BUTLER INCREASE PC TO 28. WILL FOLLOW WITH ORDER
[2019-02-15] MEDS ORDERED: LORazepam 2 MG/ML VIAL IVP PRN (09:10)
[2019-02-15] MEDS ORDERED: NACL 0.9% 1,000 ML IV SCH (09:30)
--- NOTE | 2019-02-15 09:30 | NUR ---
DR. GOVEA MADE AWARE OF PATIENT POTASSIUM TODAY 5.6 AND ALSO OF ABG TAKEN THIS MORNING AND THE RESULT
--- NOTE | 2019-02-15 10:37 | NUR ---
FOLLOWED UP PHARMACY STAFF FOR LEVOPHED BAG
[2019-02-15] MEDS: VANCOMYCIN 1GM/DEXT 5% PREMIX 200 ML IV SCH (10:38)
--- NOTE | 2019-02-15 10:47 | NUR ---
ABG DRAWN BY RT GONZALEZ. RESULTS GIVEN TO MD BUTLER
[2019-02-15] MEDS: CALCIUM ACETATE 667 MG TAB PO SCH ×2 (11:17→16:32)
[2019-02-15] MEDS: NOREPINEPHRINE 4 MG in DEXTROSE 5% 250 ML IV PRN (11:25)
--- NOTE | 2019-02-15 11:25 | NUR ---
LEVOPHED DRIP STARTED AT 2MCG/MIN. PER DR. GOVEA "KEEP MAP 65 AND ABOVE" MAP 64 AT THIS TIME. WILL CONTINUE TO MONITOR
--- NOTE | 2019-02-15 11:30 | NUR ---
DR. GOVEA MADE AWARE THAT URINE OUTPUT THIS SHIFT IS 10 CC AND REINFORMED OF THIS PATIENT'S SERUM K+ RESULT. PER PHYSICIAN WILL WAIT FOR CLINICAL ENGINEERING DIRECTOR. ICU CN JALEN MADE AWARE WELL
--- NOTE | 2019-02-15 11:56 | NUR ---
FOLLOWED UP WITH RT PAULINO REGARDING ABG RESULT AND PER RT SHE WILL CALL ME BACK
--- NOTE | 2019-02-15 12:11 | NUR ---
AGENCY SALES MANAGEMENT ASSISTANT AT BEDSIDE FOR ULTRASOUND OF THE CHEST
--- NOTE | 2019-02-15 12:22 | NUR ---
DR. DORANTES AT BEDSIDE AWARE OF K+ RESULT TODAY 5.6 AND URINE OUTPUT SINCE 7AM IS 30 ML TOTAL
[2019-02-15] MEDS ORDERED: SODIUM POLYSTYRENE 15 GM/60 ML UDBTL GT SCH (12:45)
[2019-02-15] MEDS: GAUZE TP SCH (13:51)
--- NOTE | 2019-02-15 14:06 | NUR ---
02/15/19 RD FOLLOW UP COMPLETED PLEASE REFER TO NUTRITION ASSESSMENT UNDER CARE ACTIVITY FOR ESTIMATED NUTRITIONAL NEEDS. 1. CONTINUE NEPRO @ 40 ML/HR -THIS PROVIDES 960 ML OF TOTAL VOLUME, 1728 KCAL, 77 GM OF PROTEIN; WHICH MEETS 100% OF ESTIMATED KCAL AND 105% ESTIMATED PROTEIN NEEDS. 2. RECOMMEND FREE WATER FLUSH [address] TO FOLLOW-UP 2-3 DAYS, HIGH RISK PIERCE PATEL, RD
--- NOTE | 2019-02-15 17:34 | NUR ---
DR. BUTLER AT BEDSIDE DOING VENTILATOR CHANGES. SOURAV THE VISITOR AT BEDSIDE
--- NOTE | 2019-02-15 17:37 | NUR ---
INFORMED [place] [id number] BUTLER IS HERE
--- NOTE | 2019-02-15 17:47 | NUR ---
PT VENT MODE CHANGED TO AC/PRVC/ 20/ 400/ 0.85/ 45%/ +10/ Pmin 2 PER
--- NOTE | 2019-02-15 19:06 | NUR ---
RECEIVED REPORT FROM AM SHIFT. PT SEDATED. RASS -5. UNAROUSABLE. PERRL 3MM. DRY WEIGHT USED 117 KG. LUNG SOUNDS DIMINISHED BILAT. ETT 7.5 TAPED AT 25MM AT LIP. VENT SETTING AC PRVC FIO2 45 PINSP 28 RATE 20 PEEP 10. SR ON MONITOR. EDEMA NOTED +1 BUE/BLE. ON LEVOPHED DRIP 2MCG/KG/MIN. ABD SOFT NONDISTEDED. BOWEL SOUNDS ACTIVE X 4 QUADRANTS. OGT TO FEED. ON NEPRO 40 ML W/ 200ML Q4H H20. RESIDUAL 30ML NOTED. F/C IN PLACE. BLADDED NONDISTENED. SKIN NON INTACT RLE OPEN WOUND. RIGHT IJ CENTRAL LINE NOTED. DRESSING INTACT. ON PROPOFOL 10MCG, VERSED 5MG, AND FENTANYL 200 MCG. HOB 30. SR UP X4. BED IN LOWEST POSITION. WILL CONTINUE TO MONITOR.
--- NOTE | 2019-02-15 19:58 | NUR ---
PATIENT'S ETT AT 25 CM AT THE TEETH, RATHER THAN 27 IT WAS ORIGINALLY. ANCHOR-FAST SLIPPING DOWN AND PULLING TUBE. SPOKE TO DR. TOBIAS AND CHEST X-RAY WAS TAKEN. ET TIP AT CLAVICLES. WILL ADVANCE AND RE-ORDER CHEST X-RAY.
[2019-02-15] MEDS: ATORVASTATIN 20 MG TAB PO SCH (20:05)
--- NOTE | 2019-02-15 20:13 | NUR ---
VENT CURRENTLY ON: AC/PRVC, 20, 400, 0.85, 45%, +10. TX GIVEN WITH NO ADVERSE EFFECTS. AMBU BAG AT BEDSIDE. ALARMS ON AND AUDIBLE. VENT PLUGGED INTO RED OUTLET.
--- NOTE | 2019-02-15 21:05 | NUR ---
CRITICAL ABG RESULTS VERBALLY READ BACK TO Nancy MONTIEL MD. VENT SETTINGS ADJUSTED BACK TO PC PER . Addendum: 02/16/19 at 0249 by Dior Bingham RT MERY
--- NOTE | 2019-02-15 21:22 | NUR ---
ETT READJUSTED FROM 25 CM BACK TO 27 CM AT TEETH. ANCHORFAST CHANGED AND SECURED WITH BITE BLOCK IN PLACE. CUFF BALLOON INFLATED. CHEST X-RAY WILL BE ORDERED TO CHECK TUBE PLACEMENT. Addendum: 02/16/19 at 0249 by Dior Bingham RT ETT PLACEMENT NOW ADEQUATE ACCORDING TO MOST RECENT CHEST X-RAY.
--- NOTE | 2019-02-15 22:21 | NUR ---
RT AT BEDSIDE AT THIS TIME. READJUSTED ETT TUBE
--- NOTE | 2019-02-15 22:36 | NUR ---
LEVOPHED DRIP OFF AT THIS TIME.
--- NOTE | 2019-02-15 23:37 | NUR ---
CXR AT BEDSIDE AT THIS TIME
[2019-02-16] VITALS (102 sets, daily range): BP systolic 92–124; BP diastolic 40–85
--- NOTE | 2019-02-16 00:05 | NUR ---
DR. BISHOP AT BEDSIDE AT THIS TIME. UPDATED ON PTS CURRENT CONDITION. WILL CONTINUE TO FOLLOW UP ADDITIONAL ORDERS.
[2019-02-16] MEDS: MIDAZOLAM MDV 100 MG in NACL 0.9% 80 ML IV PRN ×2 (00:10→16:07)
[2019-02-16] MEDS: ALBUTEROL SULFATE/IPRATROPIU 3 ML SOL IH SCH ×4 (01:08→20:11)
--- NOTE | 2019-02-16 01:24 | NUR ---
RT AT BEDSIDE AT THIS TIME
--- NOTE | 2019-02-16 01:30 | NUR ---
SPOKE TO DR. TOBIAS ABOUT INCREASING PT'S PRESSURE TO ACHIEVE ADEQUATE TIDAL VOLUMES AND MINUTE VENTILATION. ABG TO FOLLOW 30-1HOUR AFTER CHANGES.
[2019-02-16] MEDS: fentaNYL 1 MG in NACL 0.9% 80 ML IV PRN ×4 (03:12→20:35)
[2019-02-16] MEDS: NACL 0.9% 1,000 ML IV SCH ×3 (03:50→23:50)
--- NOTE | 2019-02-16 04:13 | NUR ---
FOLLOW UP BLOOD GAS DRAWN AND READ BACK TO DR. TOBIAS. IMPROVEMENT WAS SEEN SINCE CHANGES TO VENT SETTING WERE MADE.
--- NOTE | 2019-02-16 04:35 | NUR ---
AM CARE PROVIDED AT THIS TIME. PT. CLEANED AND REPOSITIONED. ORAL AND CATH CARE PROVIDED.
[2019-02-16] MEDS: MEROPENEM 1,000 MG in NACL 0.9% 100 ML IV SCH ×3 (04:54→20:23)
--- NOTE | 2019-02-16 05:19 | NUR ---
FEEDING TUBE AND BAD CHANGED AT THIS TIME
[2019-02-16] MEDS: PROPOFOL 1000 MG/100 ML PREMIX 100 ML IV PRN ×3 (06:11→21:00)
--- NOTE | 2019-02-16 07:17 | NUR ---
ENDORSED CARE TO INCOMING SHIFT FOR CONTINUITY OF CARE
--- NOTE | 2019-02-16 07:30 | NUR ---
RECEIVED BEDSIDE REPORT FROM RN LVN RN. PT IS SEDATED, RASS -5. ON PROPOFOL, VERSED AND FENTANYL DRIPS. (DRY WEIGHT 117 KG). NORMAL SINUS RHYTHM ON MONITOR. S1 S2 HEARD. PT IS ETT TO VENT W/ SETTINGS: AC/PC, FIO2 50%, RR 22, PEEP 10, PINSP 28. LUNGS SOUND COARSE BILATERALLY. BREATHING EVEN AND UNLABORED. ABDOMEN SOFT, ROUND, NONTENDER, NONDISTENDED W/ ACTIVE BOWEL SOUNDS. OGT IN PLACE, PLACEMENT CONFIRMED, NO RESIDUALS AT THIS TIME. PT IS RECEIVING TF NEPRO AT 40 ML/HR. CENTRAL LINE TLC IN PLACE TO RIJ, ASYMPTOMATIC, PATENT AND INTACT, RUNNING NORMAL SALINE AT 100 ML/HR, PROPOFOL DRIP AT 20 MCG/KG/MIN, FENTANYL DRIP AT 200 MCG/HR, VERSED DRIP AT 7 MG/HR. SANDERS CATH IN PLACE DRAINING CLEAR YELLOW URINE TO GRAVITY DRAINAGE BAG. EDEMA NOTED TO BUE/BLE. SKIN IN DRY AND WARM TO TOUCH. DRESSING CLEAN, DRY AND INTACT TO OPEN WOUND AT RIGHT LOWER LEG. HOB 30 DEGREES, BED IN LOWEST POSITION, LOCKED. CALL LIGHT WITHIN REACH. WILL CONTINUE TO MONITOR.
[2019-02-16] MEDS: BUDESONIDE 0.5 MG/2 ML NEBU INH SCH ×2 (07:34→20:14)
--- NOTE | 2019-02-16 07:34 | NUR ---
RCV'D PT ON VENTILATOR INTUBATED WITH 7.5 ETT AT 28 CM AT LIP. FOUND PT WITH BITE BLOCK. VENT SETTINGS CHARTED. PT IS NOT ALERT. HHN TX GIVEN WITH NO ADVERSE REACTION. VENT IS CONNECTED TO RED OUTLET. ALARMS AUDIBLE. AMBU BAG AT BEDSIDE. WILL CONTINUE TO MONITOR.
--- NOTE | 2019-02-16 07:55 | NUR ---
DR. WILSON AND RESIDENT GROUP IN TO SEE PT. WILL FOLLOW UP ON ORDERS.
[2019-02-16 07:58] LABS: ANION GAP 12.8 (8-16); CARBON DIOXIDE 23.3 mmol/L (21-32); CREATININE 2.5 mg/dL (0.7-1.3)
[2019-02-16 08:00] LABS: POTASSIUM 6.1 mmol/L (3.5-5.1)
--- NOTE | 2019-02-16 08:00 | NUR ---
NORAH KIRK AT BEDSIDE. WILL FOLLOW UP ON ORDERS.
--- NOTE | 2019-02-16 08:25 | NUR ---
PER DR. GOVEA, HOLD AM MEDS AT THIS TIME PRIOR TO GUIDO CATH INSERTION.
--- NOTE | 2019-02-16 08:45 | NUR ---
GUIDO CATH BEING INSERTED AT BEDSIDE. VSS. NO S/SX OF DISTRESS NOTED AT THIS TIME. WILL CONTINUE TO MONITOR.
--- NOTE | 2019-02-16 08:53 | NUR ---
ANAIS DRAWN AND RESULTS GIVEN TO MD BUTLER. PER MD BUTLER TO DECREASE PRESSURE TO 28. WILL FOLLOW WITH ORDER.
[2019-02-16] MEDS: BLOOD GLUCOSE MONITORING 1 DEV DEV FS SCH (09:00)
--- NOTE | 2019-02-16 09:30 | NUR ---
GUIDO INSERTION COMPLETED. PER JOSE DUMONT TO GIVE HEPARIN AND AM MEDICATIONS NOW.
[2019-02-16] MEDS: CALCIUM ACETATE 667 MG TAB PO SCH ×3 (09:37→16:03)
[2019-02-16] MEDS: LACTOBACILLUS RHAMNOSUS GG 1 EACH CAP PO SCH (09:37)
[2019-02-16] MEDS: levETIRAcetam 500 MG TAB PO SCH ×2 (09:38→20:23)
[2019-02-16] MEDS: ASPIRIN 81 MG TAB.CHEW PO SCH (09:38)
[2019-02-16] MEDS: PANTOPRAZOLE 40 MG INJ VIAL IVP SCH (09:38)
--- NOTE | 2019-02-16 09:45 | NUR ---
MEDICATIONS ADMINISTERED ORDERED. PT TOLERATED WELL.
--- NOTE | 2019-02-16 10:04 | NUR ---
DECREASED VENTILATOR SETTING PC TO 28 PER MD BUTLER ORDER. DECREASED FIO2 TO 50%. SPO2 98%. WILL CONTINUE TO MONITOR.
[2019-02-16 10:11] LABS: BASOPHILS # (AUTO) 0.1 K/uL (0.00-0.22); BASOPHILS % (AUTO) 0.4 % (0.0-2.0); EOSINOPHILS # (AUTO) 0.5 K/uL (0-0.4); EOSINOPHILS % (AUTO) 2.7 % (0.0-4.0); HEMATOCRIT 25.8 % (36-52); LYMPHOCYTES # (AUTO) 1.2 K/uL (2.0-11.5); LYMPHOCYTES % (AUTO) 6.3 % (20.5-51.1); MEAN CORPUSCULAR HEMOGLOBIN 24 pg (27-31); MEAN CORPUSCULAR HGB CONC 31 g/dL (33-37); MEAN CORPUSCULAR VOLUME 78.2 fL (80-94); MONOCYTES # (AUTO) 1.8 K/uL (0.8-1.0); MONOCYTES % (AUTO) 9.6 % (1.7-9.3); PLATELET COUNT (AUTO) 337 K/uL (140-450); RED CELL DISTRIBUTION WIDTH 17.7 % (11.6-13.7); WHITE BLOOD COUNT (AUTO) 18.6 K/uL (4.8-10.8)
--- NOTE | 2019-02-16 10:45 | NUR ---
PHARMACIST MADE AWARE OF VANCOMYCIN TROUGH 20.8.
--- NOTE | 2019-02-16 12:05 | NUR ---
VAP ORAL CARE GIVEN. TURNED AND REPOSITIONED FOR COMFORT AND OFF LOADING PRESSURE AREAS. PT TOLERATED WELL.
[2019-02-16] MEDS: GAUZE TP SCH (12:14)
--- NOTE | 2019-02-16 13:50 | NUR ---
VENT CHECK. PT IS NOT ALERT. HHN TX GIVEN WITH NO ADVERSE REACTION. DECREASED PEEP TO 8 CMH2O. PT TOLERATING WELL. SPO2 93%. NO SOB OR DISTRESS NOTED. WILL CONTINUE TO MONITOR.
[2019-02-16] MEDS: LEVOFLOXACIN 750 MG/D5W PREMIX 150 ML IV SCH (15:02)
--- NOTE | 2019-02-16 15:09 | NUR ---
NO CHANGE IN CONDITION AT THIS TIME. PT STILL ON VERSED, FENTANYL AND PROPOFOL DRIPS. VSS. NO S/SX OF DISTRESS NOTED. WILL CONTINUE TO MONITOR.
--- NOTE | 2019-02-16 16:14 | NUR ---
DR. BUTLER AT BEDSIDE EVALUATING PATIENT'S PROGRESS. WILL FOLLOW UP ON ORDERS.
--- NOTE | 2019-02-16 16:15 | NUR ---
DR BUTLER AT BEDSIDE. MADE VENT CHANGES AND ORDERED BLOOD GAS IN ONE HOUR WILL FOLLOW.
--- NOTE | 2019-02-16 16:26 | NUR ---
LEFT IJ GUIDO CATHETER DRESSING APPLIED. CHG DISK IN PLACE.
--- NOTE | 2019-02-16 17:17 | NUR ---
ABG DRAWN BY RT REBOLLEDO. RESULTS GIVEN TO MD BUTLER AT BEDSIDE. MD BUTLER MADE VENT CHANGES. PRVC 16,450,+10,0.85,70% FIO2. ORDERED BLOOD GAS IN ONE HOUR. WILL FOLLOW WITH ORDER.
--- NOTE | 2019-02-16 19:15 | NUR ---
RECEIVED REPORT FROM AM SHIFT. PT. AFEBRILE. SEDATED. RASS -5. UNAROUSABLE. DRY WEIGHT USED 117 KG. PERRL 3MM. LUNG SOUNDS RONCHI BILAT. ETT TO VENT. SIZE 7.5 TAPED AT 27CM. VENT MODE PC. FIO2 70 VT 450 RATE 16 PEEP 10. SR ON MONITOR, EDEMA NOTED TO BLE AND BUE. BOWEL SOUNDS ACTIVE X4 QUADS. ON NEPRO 40 ML WITH 160 ML H20 Q 4. SANDERS CATH IN PLACE. URINE CLEAR YELLOW. LEFT IJ GUIDO CATH NOTED. RIJ CENTRAL LINE. DRESSING INTACT. ON PROPOFOL 20 MCG, FENTANYL 150 MCG AND VERSED 7MG. HOB 30. BED IN LOWEST POSITION. SR UP X4. WILL CONTINUE TO MONITOR
--- NOTE | 2019-02-16 19:20 | NUR ---
REPORT GIVEN TO RISK CONTROL CONSULTANT RN FOR CONTINUITY OF CARE. NO SIGNS OF DISTRESS NOTED AT THIS TIME.
--- NOTE | 2019-02-16 19:40 | NUR ---
PAGED DR. BUTLER REGARDING ABG RESULTS
--- NOTE | 2019-02-16 19:57 | NUR ---
POST ABG. DR BUTLER CHANGED VENT SETTINGS TO PC 28 PEEP 10 RR 16 VT 450 ITIME 0.85 AND ABG IN AM
[2019-02-16] MEDS: ATORVASTATIN 20 MG TAB PO SCH (20:23)
--- NOTE | 2019-02-16 20:46 | NUR ---
HEMODIALYSIS AT BEDSIDE AT THIS TIME
--- NOTE | 2019-02-16 22:44 | NUR ---
PT RECEIVING HD AT THIS TIME. NO SIGNS OF ACUTE DISTRESS NOTED.
--- NOTE | 2019-02-16 23:12 | NUR ---
HD COMPLETE AT THIS TIME. NO SIGNS OF ACUTE DISTRESS NOTED. 1 LITER OUT.
[2019-02-17] VITALS (108 sets, daily range): BP systolic 86–120; BP diastolic 39–64
--- NOTE | 2019-02-17 00:30 | NUR ---
ORAL CARE PROVIDED AT THIS TIME. PT TURNED AND REPOSITIONED.
[2019-02-17] MEDS: ALBUTEROL SULFATE/IPRATROPIU 3 ML SOL IH SCH ×4 (01:07→19:38)
--- NOTE | 2019-02-17 02:22 | NUR ---
PT PITTING EDEMA 2+ TO BUE. MADE AWARE.
[2019-02-17] MEDS: fentaNYL 1 MG in NACL 0.9% 80 ML IV PRN ×3 (02:30→17:02)
[2019-02-17] MEDS: MEROPENEM 1,000 MG in NACL 0.9% 100 ML IV SCH ×2 (04:34→21:14)
--- NOTE | 2019-02-17 04:49 | NUR ---
AM CARE PROVIDED AT THIS TIME. PT TURNED AND REPOSITIONED.
[2019-02-17] MEDS: PROPOFOL 1000 MG/100 ML PREMIX 100 ML IV PRN (04:50)
--- NOTE | 2019-02-17 05:20 | NUR ---
LAB AT BEDSIDE AT THIS TIME FOR AM DRAW
--- NOTE | 2019-02-17 06:00 | NUR ---
NEW CENTRAL LINE DRESSING CHANGED.
--- NOTE | 2019-02-17 07:04 | NUR ---
ENDORSED CARE TO INCOMING SHIFT FOR CONTINUITY OF CARE
--- NOTE | 2019-02-17 07:15 | NUR ---
RECEIVED PT ON BED.ETT TO VENT .PT TOLERATING VENT SETTING.PT IS SEDATED.RASS-5.SANDERS TO GRAVITY.NSR IN THE MONITOR.RIGHT IJ TRIPLE LUMEN CATHETER INTACT AND PATENT.LEFT IJ GUIDO CATHETER DRESSING INTACT.WILL MONITOR.
[2019-02-17] MEDS: BUDESONIDE 0.5 MG/2 ML NEBU INH SCH ×2 (07:27→19:37)
[2019-02-17] MEDS: MIDAZOLAM MDV 100 MG in NACL 0.9% 80 ML IV PRN (07:40)
[2019-02-17] MEDS: ASPIRIN 81 MG TAB.CHEW PO SCH (09:00)
[2019-02-17] MEDS: levETIRAcetam 500 MG TAB PO SCH ×2 (09:00→21:15)
[2019-02-17] MEDS: BLOOD GLUCOSE MONITORING 1 DEV DEV FS SCH (09:00)
[2019-02-17] MEDS: LACTOBACILLUS RHAMNOSUS GG 1 EACH CAP PO SCH (09:00)
--- NOTE | 2019-02-17 09:08 | NUR ---
ABG RESULTS GIVEN TO NEW VENT SETTINGS MADE BY PHYSICIAN. WILL CONTINUE TO MONITOR.
[2019-02-17] MEDS: CALCIUM ACETATE 667 MG TAB PO SCH ×3 (09:43→16:20)
[2019-02-17] MEDS: PANTOPRAZOLE 40 MG INJ VIAL IVP SCH (09:43)
[2019-02-17] MEDS: NACL 0.9% 1,000 ML IV SCH ×2 (09:50→19:50)
--- NOTE | 2019-02-17 12:09 | NUR ---
VT DECREASED TO 45O mL DUE TO PT PEAK PRESSURES IN THE 50'S. PER TO KEEP PIP LESS THAN OR EQUAL TO 40.
--- NOTE | 2019-02-17 12:33 | NUR ---
02/17/19 RD FOLLOW UP COMPLETED PLEASE REFER TO NUTRITION PROGRESS NOTE UNDER CARE ACTIVITY FOR ESTIMATED NUTRITION NEEDS. RD RECOMMENDATIONS: 1. CONTINUE NEPRO @ 40 ML/HR -THIS PROVIDES 960 ML OF TOTAL VOLUME, 1728 KCAL, 77 GM OF PROTEIN; WHICH MEETS 100% OF ESTIMATED KCAL AND PROTEIN NEEDS. 2. CONTINUE FREE WATER FLUSH OF 60 ML Q4H OR PER MD DISCRETION. 3. RD TO FOLLOW-UP 2-3 DAYS, HIGH RISK TYRON RODRIGUEZ, RD
[2019-02-17] MEDS: GAUZE TP SCH (13:00)
--- NOTE | 2019-02-17 13:09 | NUR ---
ANY AWARE OF CHANGES MADE TO VENT AND WILL OBTAIN ABG PER PHYSICIAN ORDER.
--- NOTE | 2019-02-17 14:02 | NUR ---
ABG RESULTS GIVEN TO . PT REQUESTS TO PLACE PT ON AC/PC AND TO TITRATE Pinsp TO KEEP VT'S >=500 ML. WILL CONTINUE TO MONITOR.
[2019-02-17] MEDS ORDERED: VANCOMYCIN 1GM/DEXT 5% PREMIX 200 ML IV SCH (15:00)
[2019-02-17 15:06] LABS: ANION GAP 8.4 (8-16); CARBON DIOXIDE 27.9 mmol/L (21-32); CREATININE 1.6 mg/dL (0.7-1.3); POTASSIUM 4.3 mmol/L (3.5-5.1)
--- NOTE | 2019-02-17 15:57 | NUR ---
FIO2 TITRATED TO 80%.PT NOT ALERT BUT NOT IN ANY DISTRESS AT THIS TIME. WILL CONTINUE TO MONITOR.
--- NOTE | 2019-02-17 17:50 | NUR ---
PT REMAINS ON DOCUMENTED VENT SETTINGS. PT NOT ALERT BUT NOT IN ANY DISTRESS AT THIS TIME. VENT ALARMS ON AND FUNCTIONING. ETT REMAINS SECURE WITH A PATENT AIRWAY.
--- NOTE | 2019-02-17 18:30 | NUR ---
DR OKEEFE MADE AWARE OF SKIN TEAR AT RIGHT EAR .PT HAD IT AFTER HD .
--- NOTE | 2019-02-17 19:15 | NUR ---
REPORT GIVEN TO DARÍO FOR CONTINUITY OF CARE
--- NOTE | 2019-02-17 19:30 | NUR ---
RECEIVED REPORT FROM DAY SHIFT RN, PT SEDATED RASS -5, FLACCID, FLACC 0, UNABLE TO RESPOND TO VERBAL PROMPTS. +3 SLUGGISH PUPILS. NSR 80-90S +3 PITTING GENERALIZED EDEMA, PALPABLE PULSES BILATERAL RADIAL/PEDAL. ETT TO VENT 7. 5 MM SECURED @ 27 CM TEETH ON PRESSURE CONTROL @ 80% FIO2. SCANT WHITE CREAMY SECRETIONS NOTED. DIMINISHED BREATH SOUNDS. OGT IN PLACE, WITH FEEDINGS RUNNING, MINIMAL RESIDUALS >10 ML. ACTIVE BOWEL SOUNDS LAST BM NOTED 02/17 IN AM. SANDERS CATH IN PLACE, OLIGURIC; DARK PAMELA URINE. SKIN NON INTACT, WOUND TO R LATERAL LEG/CALF AREA. SKIN TEAR TO R EAR NOTED. RIJ TRIPLE LUMEN CENTRAL LINE VERSED @ 6MG/HR AND FENTANYL @ 150 MCG/HR, PROPOFOL @ 10 MCG/KG/MIN. L IJ CENTRAL LINE DIALYSIS CATHETER; LAST HD TODAY 2L/OUT. BED LOCKED IN LOWEST POSITION, SAFETY PRECAUTIONS IN PLACE. WILL CONTINUE TO OBSERVE. DRY WEIGHT: 117 KG
--- NOTE | 2019-02-17 21:00 | NUR ---
ABG RESULTS GIVEN TO DR DEGROOT. NO CHANGES PER DR DEGROOT
[2019-02-17] MEDS: ATORVASTATIN 20 MG TAB PO SCH (21:15)
[2019-02-18] VITALS (103 sets, daily range): BP systolic 80–166; BP diastolic 36–97
--- NOTE | 2019-02-18 00:02 | NUR ---
INCREASED FIO2 TO 100% PATIENTS SATS ARE 87%
[2019-02-18] MEDS: fentaNYL 1 MG in NACL 0.9% 80 ML IV PRN ×4 (00:17→21:20)
[2019-02-18] MEDS: MIDAZOLAM MDV 100 MG in NACL 0.9% 80 ML IV PRN ×2 (00:18→14:14)
--- NOTE | 2019-02-18 00:20 | NUR ---
PT HAS EYES CLOSED, MAP<60 NSR 90S ON MONITOR, FLACC 0 RASS-5. VAP ORAL CARE DONE.
--- NOTE | 2019-02-18 04:30 | NUR ---
AM CARE DONE, PT TURNED AND REPOSITIONED, NO ACUTE DISTRESS @ THIS TIME. WILL CONTINUE TO OBSERVE
[2019-02-18] MEDS: NACL 0.9% 1,000 ML IV SCH (05:43)
[2019-02-18] MEDS: PROPOFOL 1000 MG/100 ML PREMIX 100 ML IV PRN (05:44)
[2019-02-18 05:47] LABS: BASOPHILS # (AUTO) 0.1 K/uL (0.00-0.22); BASOPHILS % (AUTO) 0.2 % (0.0-2.0); EOSINOPHILS # (AUTO) 0.2 K/uL (0-0.4); EOSINOPHILS % (AUTO) 0.7 % (0.0-4.0); HEMATOCRIT 28.2 % (36-52); HEMOGLOBIN 8.7 g/dL (12.0-18.0); LYMPHOCYTES # (AUTO) 1.4 K/uL (2.0-11.5); LYMPHOCYTES % (AUTO) 5.3 % (20.5-51.1); MEAN CORPUSCULAR HEMOGLOBIN 25 pg (27-31); MEAN CORPUSCULAR HGB CONC 31 g/dL (33-37); MONOCYTES # (AUTO) 2.2 K/uL (0.8-1.0); MONOCYTES % (AUTO) 8.1 % (1.7-9.3); NEUTROPHILS # (AUTO) 23.3 K/uL (1.8-7.7); NEUTROPHILS % (AUTO) 85.7 % (42.2-75.2); PLATELET COUNT (AUTO) 367 K/uL (140-450); RED BLOOD CELL COUNT(AUTO) 3.53 MIL/uL (4.20-6.10); RED CELL DISTRIBUTION WIDTH 17.8 % (11.6-13.7); WHITE BLOOD COUNT (AUTO) 27.2 K/uL (4.8-10.8)
[2019-02-18 06:06] LABS: ANION GAP 9.2 (8-16); CARBON DIOXIDE 27.5 mmol/L (21-32); CREATININE 2.3 mg/dL (0.7-1.3); POTASSIUM 4.7 mmol/L (3.5-5.1)
[2019-02-18 06:08] LABS: MAGNESIUM 2.3 mg/dL (1.8-2.4); PHOSPHORUS 7.1 mg/dL (2.5-4.9)
[2019-02-18] MEDS ORDERED: NOREPINEPHRINE 4 MG/4 ML VIAL IV ONE (06:17)
[2019-02-18] MEDS: NOREPINEPHRINE 4 MG in DEXTROSE 5% 250 ML IV PRN (06:20)
--- NOTE | 2019-02-18 06:40 | NUR ---
PT SBP 80S, MAP<60 LEVOPHED DRIP RESTARTED @ 4MCG/MIN DR. NG MADE AWARE. WILL CONTINUE TO OBSERVE.
[2019-02-18] MEDS ORDERED: PHENYLEPHRINE 10 MG in NACL 0.9% 250 ML IV PRN (06:45)
[2019-02-18] MEDS: PHENYLEPHRINE 40 MG in NACL 0.9% 250 ML IV PRN ×4 (07:00→22:08)
--- NOTE | 2019-02-18 07:00 | NUR ---
LEVOPHED D/C'D, NEOSYNEPHRINE DRIP STARTED
[2019-02-18] MEDS ORDERED: PHENYLEPHRINE 10 MG/ML VIAL ONE (07:04)
[2019-02-18] MEDS: BUDESONIDE 0.5 MG/2 ML NEBU INH SCH ×2 (07:23→18:52)
[2019-02-18] MEDS: ALBUTEROL SULFATE/IPRATROPIU 3 ML SOL IH SCH ×3 (07:23→18:51)
--- NOTE | 2019-02-18 07:30 | NUR ---
DR. NG UPDATED ON PATIENTS LOW URINE OUTPUT.
--- NOTE | 2019-02-18 07:30 | NUR ---
REPORT GIVEN TO DAY SHIFT FOR CONTINUITY OF CARE.
--- NOTE | 2019-02-18 08:00 | NUR ---
RECEIVED REPORT FROM CERTIFIED COURT/MEDICAL INTERPRETER RN, PT SEDATED RASS -5, FLACCID, FLACC 0, UNABLE TO RESPOND TO VERBAL PROMPTS. PERRLA +3 SLUGGISH PUPILS. ETT 7.5MM SECURED TO 27 CM AT THE TEETH. VENT SETTINGS: PRESSURE CONTROLLED 100%, RATE 20, PEEP 8. SCANT WHITE CREAMY SECRETIONS NOTED IN SUCTION LINE. GUIDO DOUBLE LUMEN LIJ, CLEAN, DRY, INTACT DRESSING. RIJ TRIPLE LUMEN, CLEAN, DRY, INTACT DRESSING. DIMINISHED, EQUAL, BILATERAL BREATH SOUNDS. LABORED BREATHING WITH SOME ACCESSORY MUSCLE USE AT 26 RPM. NSR 90-100, MUFFLED HEART TONES. +3 PITTING GENERALIZED EDEMA INCLUDING UE/LE, PALPABLE PULSES BILATERAL RADIAL/DOPPLER PEDAL AND POSTERIOR TIBIAL. OGT IN PLACE, WITH FEEDINGS RUNNING 40ML/HR WITH 160ML H20 FLUSH Q4H, RESIDUALS 90ML. HYPOACTIVE BOWEL SOUNDS LAST BM NOTED 02/17 IN AM. SANDERS CATH IN PLACE, OLIGURIC; DARK PAMELA URINE. EDEMATOUS SCROTUM. SKIN NON INTACT, WOUND TO R LATERAL LEG/CALF AREA, SKIN TEAR TO R EAR NOTED, BLANCHABLE REDNESS TO GROIN AREA. RIJ TRIPLE LUMEN CENTRAL LINE VERSED @ 6MG/HR AND FENTANYL @ 150 MCG/HR, PROPOFOL @ 10 MCG/KG/MIN, PHENYLEPHRINE @ 100 MCG/MIN. BED LOCKED IN LOWEST POSITION, SAFETY PRECAUTIONS IN PLACE. WILL CONTINUE TO OBSERVE. DRY WEIGHT: 117 KG
[2019-02-18 08:22] LABS: HEPATITIS A ANTIBODY IGM Negative (Negative); HEPATITIS B CORE AB TOTAL Negative (Negative); HEPATITIS B SURFACE ANTIBODY Non Reactive (.); HEPATITIS B SURFACE ANTIGEN Negative (Negative)
[2019-02-18] MEDS: PANTOPRAZOLE 40 MG INJ VIAL IVP SCH (08:44)
[2019-02-18] MEDS: ASPIRIN 81 MG TAB.CHEW PO SCH (08:45)
[2019-02-18] MEDS: LACTOBACILLUS RHAMNOSUS GG 1 EACH CAP PO SCH (08:45)
[2019-02-18] MEDS: levETIRAcetam 500 MG TAB PO SCH ×2 (08:53→21:18)
--- NOTE | 2019-02-18 08:56 | NUR ---
PAGED REGARDING ABG RESULTS.
[2019-02-18] MEDS: MEROPENEM 1,000 MG in NACL 0.9% 100 ML IV SCH ×2 (08:59→21:21)
--- NOTE | 2019-02-18 09:04 | NUR ---
ABG RESULTS GIVEN TO PHYSICIAN REQUESTS TO TITRATE FIO2 . NO OTHER CHANGES TO VENT MADE BY PHYSICIAN.
[2019-02-18] MEDS ORDERED: SODIUM BICARBONATE 8.4% PFS 50 MEQ/50 ML SYR IVP SCH ×2 (09:32→09:33)
[2019-02-18] MEDS: BLOOD GLUCOSE MONITORING 1 DEV DEV FS SCH (09:42)
[2019-02-18] MEDS: CALCIUM ACETATE 667 MG TAB PO SCH (09:52)
--- NOTE | 2019-02-18 10:09 | NUR ---
VENT CHECK COMPLETED. FIO2 TITRATED TO 90%. WILL CONTINUE TO MONITOR.
--- NOTE | 2019-02-18 12:00 | NUR ---
PT TEMP 100.6. INITIATED COOLING MEASURES. WILL PROVIDE PRN TYLENOL 625MG.
[2019-02-18] MEDS: ACETAMINOPHEN 325 MG TAB PO PRN (12:01)
--- NOTE | 2019-02-18 12:17 | NUR ---
REPOSITIONED. PT NOTED WITH ELEVATED BODY TEMPERATURE 100.6 DEGREE F. COOLING MEASURES IN PLACE. TYLENOL ADMINISTERED PER ORDER.
--- NOTE | 2019-02-18 13:00 | NUR ---
PT'S TEMPERATURE RE-CHECK 99.5. PT RESTING COMFORTABLY
--- NOTE | 2019-02-18 13:19 | NUR ---
FIO2 TITRATED TO 85%. WILL CONTINUE TO MONITOR.
--- NOTE | 2019-02-18 13:20 | NUR ---
PT SEEN BY DR. EDWARDS. UPDATE ON PT'S CONDITION. WILL FOLLOW UP ON ORDERS.
--- NOTE | 2019-02-18 13:25 | NUR ---
CALLED [facility]. MADE AWARE ABOUT DIALYSIS ORDER.
--- NOTE | 2019-02-18 13:30 | NUR ---
PHOTOGRAPHED PREVIOUSLY DOCUMENTED SKIN TEAR TO RIGHT EAR.
[2019-02-18] MEDS: ALBUMIN HUMAN 25% 200 ML IV SCH ×3 (13:47→16:04)
[2019-02-18] MEDS: GAUZE TP SCH (13:48)
[2019-02-18] MEDS ORDERED: SODIUM BICARBONATE 8.4% 100 MEQ in DEXTROSE 5% 1,000 ML IV SCH (14:00)
--- NOTE | 2019-02-18 14:48 | NUR ---
CENTRAL LINE DRESSING CHANGED.
--- NOTE | 2019-02-18 14:54 | NUR ---
CONTINUE ON SEDATION. RASS -5. CARE PROVIDED NEEDED. AFEBRILE AT THIS TIME. CONTINUE TO MONITOR.
--- NOTE | 2019-02-18 15:00 | NUR ---
BP NOTED WITH 90/41. DR. LUZ AWARE.
--- NOTE | 2019-02-18 15:05 | NUR ---
PER DR. NG, DISCONTINUE PROPOFOL MAP<60. PROPOFOL DISCONTINUED. Addendum: 02/18/19 at 1641 by Nino Molina RN MAP 56
--- NOTE | 2019-02-18 15:10 | NUR ---
DR. NG AT BEDSIDE EVALUATING PT, REQUESTS TO SEE FAMILY WHEN THEY ARRIVE.
--- NOTE | 2019-02-18 15:15 | NUR ---
PT EVALUATED BY DR. NG.
--- NOTE | 2019-02-18 15:23 | NUR ---
BP INCREASED TO 97/45.
--- NOTE | 2019-02-18 16:00 | NUR ---
PT'S ARRIVES AT BEDSIDE, DR. NG NOTIFIED AND SPEAKS WITH HER ABOUT PT'S CONDITION.
--- NOTE | 2019-02-18 16:00 | NUR ---
DIALYSIS NURSE AT BEDSIDE PREPARING FOR PROCEDURE
--- NOTE | 2019-02-18 16:03 | NUR ---
VENT CHECK COMPLETED. PT SEDATED AT THIS TIME, REMAINS TACHYPNEIC AT 27 BREATHS PER MIN. ETT SECURE. WILL CONTINUE TO MONITOR.
--- NOTE | 2019-02-18 16:34 | NUR ---
PT ON DIALYSIS. HR 99, SPO2 93% BP 98/41. RR 26. PT ON CONTINUOUS MONITORING.
--- NOTE | 2019-02-18 17:45 | NUR ---
VENT CHECK COMPLETED, PT REMAINS ON DOCUMENTED VENT SETTINGS. PT RECEIVING DIALYSIS AT THIS TIME. VENT ALARMS ON AND FUNCTIONING. ETT REMAINS SECURE WITH A PATENT AIRWAY. PT SUCTIONED OBTAINED SMALL AMOUNT OF THICK YELLOW SECRETIONS.
--- NOTE | 2019-02-18 18:30 | NUR ---
HEPARIN SODIUM 5000 UNIT HANDED TO DIALYSIS NURSE FOR GUIDO CATH HEPLOCK.
--- NOTE | 2019-02-18 19:13 | NUR ---
RECEIVED REPORT FROM DAY SHIFT RN, PT SEDATED RASS -5, FLACCID, FLACC 0, UNABLE TO RESPOND TO VERBAL PROMPTS. PERRLA +3 SLUGGISH PUPILS. ETT 7.5MM SECURED TO 27 CM AT THE TEETH. VENT SETTINGS: FIO2 85%, RATE 20, PEEP 8. . GUIDO DOUBLE LUMEN LIJ, CLEAN, DRY, INTACT DRESSING. RIJ TRIPLE LUMEN, CLEAN, DRY, INTACT DRESSING. CLEAR EQUAL, BILATERAL BREATH SOUNDS. NSR 90-100, MUFFLED HEART TONES. +3 PITTING GENERALIZED EDEMA INCLUDING UE/LE. OGT IN PLACE, WITH FEEDINGS RUNNING 40ML/HR WITH 160ML H20 FLUSH Q4H, RESIDUALS 20ML. SANDERS CATH IN PLACE, OLIGURIC; DARK PAMELA URINE. EDEMATOUS SCROTUM. SKIN NON INTACT, WOUND TO R LATERAL LEG/CALF AREA, SKIN TEAR TO R EAR NOTED, BLANCHABLE REDNESS TO GROIN AREA. RIJ TRIPLE LUMEN CENTRAL LINE VERSED @ 6MG/HR AND FENTANYL @ 150 MCG/HR, , NA @ 150 MCG/MIN. BED LOCKED IN LOWEST POSITION, SAFETY PRECAUTIONS IN PLACE. WILL CONTINUE TO MONITOR. AD TAKER AT BEDSIDE, DIALYSIS RUNNING THROUGH LIJ CHUCHO CATH. VSS.
--- NOTE | 2019-02-18 19:13 | NUR ---
REPORT GIVEN TO DUCT LAYER FOR CONTINUITY OF CARE.
--- NOTE | 2019-02-18 20:59 | NUR ---
FAMILY AT BEDSIDE.
[2019-02-18] MEDS: ATORVASTATIN 20 MG TAB PO SCH (21:18)
[2019-02-19] VITALS (105 sets, daily range): BP systolic 90–145; BP diastolic 43–76
[2019-02-19] MEDS: ALBUTEROL SULFATE/IPRATROPIU 3 ML SOL IH SCH ×5 (00:46→23:00)
[2019-02-19] MEDS: PHENYLEPHRINE 40 MG in NACL 0.9% 250 ML IV PRN ×4 (03:27→21:38)
[2019-02-19] MEDS: fentaNYL 1 MG in NACL 0.9% 80 ML IV PRN ×3 (04:45→19:17)
[2019-02-19] MEDS: NACL 0.9% 1,000 ML IV SCH (05:12)
[2019-02-19 06:05] LABS: ANION GAP 9.6 (8-16); CARBON DIOXIDE 30.7 mmol/L (21-32); CREATININE 2.8 mg/dL (0.7-1.3); POTASSIUM 4.3 mmol/L (3.5-5.1)
[2019-02-19 06:07] LABS: MAGNESIUM 2.1 mg/dL (1.8-2.4); PHOSPHORUS 6.5 mg/dL (2.5-4.9)
[2019-02-19 06:35] LABS: HEMATOCRIT 27.5 % (36-52); HEMOGLOBIN 8.4 g/dL (12.0-18.0); MEAN CORPUSCULAR HEMOGLOBIN 24 pg (27-31); MEAN CORPUSCULAR HGB CONC 31 g/dL (33-37); MEAN CORPUSCULAR VOLUME 79.3 fL (80-94); PLATELET COUNT (AUTO) 431 K/uL (140-450); RED BLOOD CELL COUNT(AUTO) 3.47 MIL/uL (4.20-6.10); RED CELL DISTRIBUTION WIDTH 17.8 % (11.6-13.7); WHITE BLOOD COUNT (AUTO) 29.9 K/uL (4.8-10.8)
[2019-02-19] MEDS: BUDESONIDE 0.5 MG/2 ML NEBU INH SCH ×2 (06:50→19:03)
--- NOTE | 2019-02-19 07:09 | NUR ---
RECEIVED INTUBATED PT WITH A 7.5 ETT SECURED @27 TEETH/GUMS ON VENT. SETTINGS PC Pinsp 28, R 20, PEEP 8 AND FIO2 85%. PT SUCTIONED OBTAINED SMALL AMOUNT OF THICK YELLOW SECRETIONS, AIRWAY IS PATENT AND ETT IS SECURE WITH ANCHOR FAST. PT HAS SLIGHT GAG REFLEX DURING SUCTION. PT IS SEDATED AND NOT ALERT AT THIS TIME. VENT IS PLUGGED INTO A RED OUTLET, AMBU BAG IS PRESENT NEAR BEDSIDE. WILL CONTINUE TO MONITOR.
--- NOTE | 2019-02-19 07:15 | NUR ---
RECEIVED BEDSIDE REPORT FROM CVICU NURSE RN, JERRY, FOR CONTINUITY OF CARE. PATIENT IS SEDATED, RASS -5. PATIENT'S SKIN IS WARM, DRY AND INTACT, HE HAS LIJ GUIDO CATHETER AND RIJ CENTRAL LINE , BOTH PATENT AND ASYMPTOMATIC. PATIENT HAS ETT TO VENT, BREATHING IS EVEN AND UNLABORED, SPO2 IS 99%. HE IS SR ON MONITOR, FLACC 0, BP IS 115/52. HE HAS OGT TO FEEDING AT 40 ML/HR WITH H20 FLUSH 160 Q4H, NO RESIDUAL NOTED. PATIENT HAS SANDERS CATHETER IN PLACE . HOB IS 35 DEGREES, BED LOCKED, SAFETY PRECAUTIONS AND ALARMS ASSESSED AND ENFORCED. WILL CONTINUE TO MONITOR.
[2019-02-19] MEDS: LACTOBACILLUS RHAMNOSUS GG 1 EACH CAP PO SCH (07:59)
[2019-02-19] MEDS: PANTOPRAZOLE 40 MG INJ VIAL IVP SCH (08:00)
[2019-02-19] MEDS: CALCIUM ACETATE 667 MG TAB PO SCH (08:00)
[2019-02-19] MEDS: ASPIRIN 81 MG TAB.CHEW PO SCH (08:00)
[2019-02-19] MEDS: levETIRAcetam 500 MG TAB PO SCH ×2 (08:00→22:24)
[2019-02-19] MEDS: MEROPENEM 1,000 MG in NACL 0.9% 100 ML IV SCH ×2 (08:01→22:24)
[2019-02-19 08:19] LABS: LYMPHOCYTES % (MANUAL) 5 % (20-46); METAMYELOCYTES % 2 % (0-0); MONOCYTES % (MANUAL) 9 % (5-12)
--- NOTE | 2019-02-19 08:45 | NUR ---
DR. WILSON AND RESIDENT PHYSICIANS AT BEDSIDE, UPDATED ON PATIENT'S CONDITION. WILL FOLLOW UP ON ANY ORDERS.
[2019-02-19] MEDS: BLOOD GLUCOSE MONITORING 1 DEV DEV FS SCH (09:00)
[2019-02-19] MEDS: MIDAZOLAM MDV 100 MG in NACL 0.9% 80 ML IV PRN (09:02)
[2019-02-19] MEDS: ACETAMINOPHEN 325 MG TAB PO PRN (09:03)
--- NOTE | 2019-02-19 09:10 | NUR ---
PATIENT'S TEMP IS 100.4, ADMINISTERED PRN TYLENOL. PATIENT TOLERATED WELL, WILL CONTINUE TO MONITOR
--- NOTE | 2019-02-19 09:25 | NUR ---
FIO2 TITRATED TO 80%. WILL CONTINUE TO MONITOR.
--- NOTE | 2019-02-19 10:04 | NUR ---
CHANGED PATIENT'S TUBE FEEDING, 100ML RESIDUAL NOTED. WILL CONTINUE TO MONITOR
--- NOTE | 2019-02-19 10:43 | NUR ---
PATIENT'S TEMP IS 98.7, NO SIGNS OF DISTRESS NOTED. WILL CONTINUE TO MONITOR
[2019-02-19] MEDS: GAUZE TP SCH (13:14)
--- NOTE | 2019-02-19 14:45 | NUR ---
DR. HAWKINS IS HERE TO SEE PATIENT, UPDATED ON PATIENT'S CONDITION. STATES THAT PATIENT WILL HAVE HEMODIALYSIS TODAY.
--- NOTE | 2019-02-19 14:57 | NUR ---
PER DR. HAWKINS, IF PCO2 IS GREATER THAT 70, D/C SODIUM BICARB.
--- NOTE | 2019-02-19 15:18 | NUR ---
HUMAN RESOURCE ASSISTANT PAGED REGARDING CRITICAL ABG RESULTS.
--- NOTE | 2019-02-19 15:29 | NUR ---
ABG RESULTS GIVEN TO PHYSICIAN REQUESTS PT BE PLACED ON PRVC VT 600,R20, PEEP 8 AND TITRATE FIO2. WILL CONTINUE TO MONITOR.
--- NOTE | 2019-02-19 15:40 | NUR ---
WOUND CARE RE-EVALUATION DONE WITH PRIMARY RN: -RIGHT EAR DTI 1.5X1.2 CM 100% MAROON, UNAVOIDABLE DUE TO PT. CRITICAL CONDITION. SKIN PREP APPLIED.OFFLOADING RIGHT EAR -RIGHT LOWER LATERAL LEG SKIN ALTERATION WITH PARTIAL THICKNESS SKIN LOSS, 3.8X1.8CM SUPERFICIAL DEPTH, WOUND BED IS PINK, MOIST NO ODOR, WOUND EDGE FLAT, NAGI-WOUND SKIN DRY AND INTACT, NO ERYTHEMA WILL CONTINUE SAME WOUND CARE.
--- NOTE | 2019-02-19 15:45 | NUR ---
SPOKE TO REGARDING PT NOT TOLERATING PRVC. PEAK PRESSURES IN 50'S AND VT NOT BEING DELIVERED ADEQUATELY. PHYSICIAN REQUESTS PT TO BE PLACED ON PC Pinsp 30, R 22, PEEP 8 AND TITRATED FIO2. NURSE MADE AWARE. WILL CONTINUE TO MONITOR.
--- NOTE | 2019-02-19 16:08 | NUR ---
FIO2 TITRATED TO 70% SPO2 REMAINS 100%. PT TOLERATING VENT SETTINGS WELL AT THIS TIME. WILL CONTINUE TO MONITOR.
--- NOTE | 2019-02-19 16:38 | NUR ---
DR. BUTLER IS HERE TO SEE PATIENT, UPDATED ON PATIENT'S CONDITION. WILL FOLLOW UP ON ANY ORDERS.
--- NOTE | 2019-02-19 16:47 | NUR ---
BEDSIDE AND MADE CHANGES TO VENT. NEW SETTINGS:AC/PC Pinsp 30, PEEP 10, R 16, Itime 1.0 AND FIO2 70%. ABG IN TWO HOURS REQUESTED BY PHYSICIAN. WILL CONTINUE TO MONITOR.
--- NOTE | 2019-02-19 17:43 | NUR ---
PT ON DOCUMENTED VENT SETTINGS. VENT ALARMS REMAIN ON AND FUNCTIONING. ETT IS SECURE WITH A PATENT AIRWAY.
--- NOTE | 2019-02-19 18:08 | NUR ---
PAGED REGARDING ABG RESULTS.
--- NOTE | 2019-02-19 18:22 | NUR ---
ABG RESULTS GIVEN TO PHYSICIAN STATES TO LEAVE VENT SETTINGS IS AND OBTAIN ABG IN AM.
--- NOTE | 2019-02-19 19:10 | NUR ---
Received pt on vent support at documented settings, suctioned small amount of thick yellow secretions, hhn tx given, tolerated well, no resp distress or SOB noted at this time, 7.5 ETT secured/patent at 27 cm, alarms set and audible, ambu bag at bedside, vent plugged into red outlet, cont pulse ox on, will cont to monitor.
--- NOTE | 2019-02-19 19:30 | NUR ---
RECEIVED BEDSIDE REPORT FROM MORNING SHIFT RNMARÍA. SR ON CARAC MONITOR, BP 116/57, HR-86, RR=20, STATING 98% TEMP 98.4. ETT TO VENT, AC PC MODE [id number], RATE=16, TINSP=1.0, PEEP=10, PINSP=30, PMAX=60.LUNG SOUNDS COARSE ON INSPIRATION ON UPPER BILATERAL LOBES. OGT IN PLACE,NO RESIDUAL,BOWEL SOUND ACTIVE X4, TUBE FEEDING NEPRO AT 40C/CHR. SANDERS IN PLACE URINE IS DARK PAMELA IN COLOR. PT HAS RIGHT IJ CENTRAL LINE INFUSING NS AT 10CC/HR, NEOSYNEPHRINE AT 200MCG/MIN, FENTANYL AT 10MCG/HR, VERSED AT 6MG/HR. PT HAS LEFT IJ GUIDO CATH. SKIN IS NON INTACT, OPEN WOUND ON RIGHT LEG, COVERED WITH DRESSING DRY/INTACT. DTI ON RIGHT EAR OPEN TO AIR. 3+ PITTING EDEMA ON BILATERAL FEET AND HANDS. SKIN IS DRY/WARM. STANDARD PRECAUTIONS, ALLERGY TO PENCILLIN WRIST BAND, FALL AND ASPIRATION PRECAUTIONS MAINTIANED, HOB ABOVE 30 DEG. TATIANA DIALYSIS NURSE AT BEDSIDE.
--- NOTE | 2019-02-19 22:18 | NUR ---
CALLED DR. TOBIAS, INFORMED OF DIALYSIS NURSE TATIANA WILL NEED 3,000 UNIT HEP LOCK FLUSH FOR GUIDO CATH. WILL UPDATE ORDER.
[2019-02-19] MEDS: LINEZOLID 600MG PREMIX 300 ML IV SCH (22:24)
[2019-02-19] MEDS: FLUCONAZOLE 200 MG/NS PREMIX 100 ML IV SCH (22:24)
[2019-02-19] MEDS: ATORVASTATIN 20 MG TAB PO SCH (22:25)
--- NOTE | 2019-02-19 23:25 | NUR ---
DIALYSIS COMPLETED, REMOVED 4.5 LITERS PER DIALYSIS NURSE TATIANA. VSS, BP 142/75, RR=23, HR 87, SATING 98%. TEMP 98.5.
[2019-02-20] VITALS (96 sets, daily range): BP systolic 106–174; BP diastolic 49–92
--- NOTE | 2019-02-20 01:11 | NUR ---
PT REMAINS AT RASS -5. NEOSYNEPHRINE TITRATED DOWN TO 50MCG/MIN, DUE TO MAP OF 104, REASSESSED BP 144/73 WITH MAP 96. RR=22, CHEST RISE WITH INSPIRATIONS. HANDS AND FEET REMAIN EDEMATOUS, 2-3+ PITTING EDEMA. PT REPOSITIONED AT THIS GISSEL, VAP ORAL CARE PROVIDED.
[2019-02-20] MEDS: fentaNYL 1 MG in NACL 0.9% 80 ML IV PRN ×4 (01:59→20:06)
[2019-02-20] MEDS: MIDAZOLAM MDV 100 MG in NACL 0.9% 80 ML IV PRN ×2 (02:01→14:05)
[2019-02-20] MEDS: ALBUTEROL SULFATE/IPRATROPIU 3 ML SOL IH SCH ×5 (03:04→18:42)
--- NOTE | 2019-02-20 03:50 | NUR ---
AM CARES PROVIDED, NO BM. PT REPOSITIONED. WOUND REMAIN INSTACT, SUCTIONING PROVIDED X2, WHITE/YELLOW/THICK SECRETION NOTED.
[2019-02-20] MEDS: NACL 0.9% 1,000 ML IV SCH (04:58)
--- NOTE | 2019-02-20 05:05 | NUR ---
RT KATEY AT BEDSIDE TO SEE PATIENT, INCREASED RESPIRATIONS FOM 35-40, DESATING TO 89-92%. INCREASED VERSED TO 8MG/HR, AND FENTANYL FROM 175MCG/MIN TO 200MCG TO KEEP RASS AT -5. PT WAS BITING DOWN ON YANKUR DURING ORAL CARE. PRN ATIVAN GIVEN PER ORDER.
[2019-02-20 05:21] LABS: ANION GAP 9.5 (8-16); CARBON DIOXIDE 31.1 mmol/L (21-32); CREATININE 2.7 mg/dL (0.7-1.3); POTASSIUM 3.6 mmol/L (3.5-5.1)
[2019-02-20 05:25] LABS: MAGNESIUM 1.9 mg/dL (1.8-2.4); PHOSPHORUS 4.4 mg/dL (2.5-4.9)
--- NOTE | 2019-02-20 06:04 | NUR ---
AFTER TITRATION OF DRIP, PT VITALS SHOWED IMPROVMENT SATING AT 88-91%, HR 98-100, RR=27-31. BP IS 161/82.
--- NOTE | 2019-02-20 06:15 | NUR ---
DR. GOVEA AT BEDSIDE TO SEE PATIENT. UPDATED ON PT CONDITIONS.
--- NOTE | 2019-02-20 06:30 | NUR ---
RECEIVED PT ON CARESCAPE ON DOCUMENTED SETTINGS, ALARMS ARE ON AND AUDIBLE, PTS ET TUBE SIZE 7.5 IS SECURE 27 CM ANCH[address] FAST IN PLACE BS COARSE, PT ON HF NOT AWAKE AT THIS TIME, HHN GVIEN I\L WITH 3 MG DUONEB FOLLOWED BY 0.5 MG PULMICORT BMV HOB VENT PLUGGED INTO RED OUTLET
[2019-02-20 06:36] LABS: BASOPHILS # (AUTO) 0.1 K/uL (0.00-0.22); BASOPHILS % (AUTO) 0.3 % (0.0-2.0); EOSINOPHILS # (AUTO) 0.2 K/uL (0-0.4); EOSINOPHILS % (AUTO) 0.9 % (0.0-4.0); HEMATOCRIT 26.4 % (36-52); HEMOGLOBIN 8.2 g/dL (12.0-18.0); LYMPHOCYTES # (AUTO) 1.2 K/uL (2.0-11.5); LYMPHOCYTES % (AUTO) 4.8 % (20.5-51.1); MEAN CORPUSCULAR HEMOGLOBIN 24 pg (27-31); MEAN CORPUSCULAR HGB CONC 31 g/dL (33-37); MEAN CORPUSCULAR VOLUME 78.1 fL (80-94); MONOCYTES # (AUTO) 2.2 K/uL (0.8-1.0); MONOCYTES % (AUTO) 8.9 % (1.7-9.3); NEUTROPHILS # (AUTO) 21.5 K/uL (1.8-7.7); NEUTROPHILS % (AUTO) 85.1 % (42.2-75.2); PLATELET COUNT (AUTO) 399 K/uL (140-450); RED BLOOD CELL COUNT(AUTO) 3.37 MIL/uL (4.20-6.10); RED CELL DISTRIBUTION WIDTH 18.1 % (11.6-13.7); WHITE BLOOD COUNT (AUTO) 25.2 K/uL (4.8-10.8)
[2019-02-20] MEDS: BUDESONIDE 0.5 MG/2 ML NEBU INH SCH ×2 (06:42→18:42)
--- NOTE | 2019-02-20 07:26 | NUR ---
GAVE BEDSIDE REPORT TO MORNING SHIFT MARÍA MC.
--- NOTE | 2019-02-20 08:12 | NUR ---
DR. WILSON AND RESIDENT PHYSICIANS AT BEDSIDE, UPDATED ON PATIENT'S CONDITION. WILL FOLLOW UP ON ANY ORDERS.
--- NOTE | 2019-02-20 08:18 | NUR ---
DR. GARCIA IN TO SEE PATIENT, UPDATED ON PATIENT'S CONDITION. WILL FOLLOW UP ON ANY ORDERS.
[2019-02-20] MEDS: LACTOBACILLUS RHAMNOSUS GG 1 EACH CAP PO SCH (08:29)
[2019-02-20] MEDS: PANTOPRAZOLE 40 MG INJ VIAL IVP SCH (08:29)
[2019-02-20] MEDS: levETIRAcetam 500 MG TAB PO SCH ×2 (08:29→20:04)
[2019-02-20] MEDS: MEROPENEM 1,000 MG in NACL 0.9% 100 ML IV SCH ×2 (08:30→23:35)
[2019-02-20] MEDS: CALCIUM ACETATE 667 MG TAB PO SCH (08:30)
[2019-02-20] MEDS: ASPIRIN 81 MG TAB.CHEW PO SCH (08:30)
[2019-02-20] MEDS: LINEZOLID 600MG PREMIX 300 ML IV SCH ×2 (08:31→23:34)
[2019-02-20] MEDS: BLOOD GLUCOSE MONITORING 1 DEV DEV FS SCH (09:00)
--- NOTE | 2019-02-20 09:51 | NUR ---
NEW TUBE FEEDING STARTED. NO RESIDUAL NOTED, PATIENT IS TOLERATING WELL. WILL CONTINUE TO MONITOR
[2019-02-20] MEDS ORDERED: VANCOMYCIN PER PHARMACY MC PRN (11:25)
[2019-02-20] MEDS: GAUZE TP SCH (12:40)
--- NOTE | 2019-02-20 12:50 | NUR ---
PATIENT'S SON AND IS HERE. DR. GOVEA IS AWARE
--- NOTE | 2019-02-20 13:10 | NUR ---
DR. HAWKINS AT BEDSIDE, SPEAKING TO FAMILY REGARDING PLAN OF CARE. RESIDENTS AT BEDSIDE.
--- NOTE | 2019-02-20 14:34 | NUR ---
02/20/19 RD FOLLOW UP COMPLETED PLEASE REFER TO NUTRITION ASSESSMENT UNDER CARE ACTIVITY FOR ESTIMATED NUTRITIONAL NEEDS. 1. CONTINUE NEPRO @ 40 ML/HR -THIS PROVIDES 960 ML OF TOTAL VOLUME, 1728 KCAL, 77 GM OF PROTEIN; WHICH MEETS 100% OF ESTIMATED KCAL AND 105% ESTIMATED PROTEIN NEEDS. 2. CONTINUE FREE WATER FLUSH [address] TO FOLLOW-UP 2-3 DAYS, HIGH RISK PIERCE PATEL RD
--- NOTE | 2019-02-20 15:50 | NUR ---
PATIENT IS HOOKED UP TO DIRECTOR OF HOUSING AND ENERGY SERVICES, SR ON MONITOR, SPO2 97%. ACCOMPANIED BY RT AND PROJECT MANAGER/DESIGN MANAGER FOR TRANSPORT TO RADIOLOGY FOR CT SCAN OF THE CHEST/ABDOMEN/PELVIS.
--- NOTE | 2019-02-20 16:38 | NUR ---
PATIENT IS BACK ON UNIT. HOOKED BACK TO VENT BY RT, NO SIGNS OF DISTRESS NOTED, PATIENT TOLERATED THE PROCEDURE WELL. WILL CONTINUE TO MONITOR
--- NOTE | 2019-02-20 19:22 | NUR ---
ENDORSED CONTINUITY OF CARE TO HAND NAILER RNPARMJIT. NO SIGNS OF DISTRESS AT THIS TIME
--- NOTE | 2019-02-20 19:30 | NUR ---
RECEIVED BEDSIDE REPORT FROM MORNING SHIFT RNMARÍA. DOES NOT OPEN EYES SPONTANEOUSLY OR RESPOND TO COMMANDS. PT IS ON ETT TO VENT AC PC MODE FIO2=70%, PINSP=30, RR=16, TINSP=1.0, PEEP=10. LUNG SOUND ARE COARSE ON UPPER/LOWER BILATERAL LOBES, CHEST RISE NOTABLE CHEST RISE NOTED WITH INSPIRATION. ABDOMEN IS LARGE/ROUND, BOWEL SOUND ACTIVE X4, ON NEPHRO AT 40CC/HR TUBE FEEDINGS, OGT IN PLACE, RESIDUAL OF 20ML. SANDERS CATH IN PLACE URINE IS DARK PAMELA IN COLOR. SKIN IS NON INTACT, DRESSING RIGHT LEG COVERING OPEN WOUND, REMAINS DRY/INTACT.SKIN TEAR ON RIGHT EAR, OPEN TO AIR. PT HAS SCROTAL EDEMA AND 2-3+ PITTING EDEMA ON BILATERAL HANDS AND FEET. PT HAS RIGHT IJ INFUSING FENTANYL AT 200MCG/HR, VERSED AT 8MG/HR, AND NS TKO AT 10CC/HR. AND LEFT IJ GUIDO CATH IN PLACE. ALLERGY BAND TO PENICILLINS , FALL/ASPIRATION/STANDARD PRECAUTIONS MAINTAINED.
[2019-02-20] MEDS ORDERED: BISACODYL 5 MG TABEC PO SCH (20:00)
[2019-02-20] MEDS ORDERED: BISACODYL 10 MG SUPP RC SCH (20:00)
[2019-02-20] MEDS: ATORVASTATIN 20 MG TAB PO SCH (20:04)
--- NOTE | 2019-02-20 20:30 | NUR ---
ORALMOUTH SUCTIONING PROVIDED TO PATIENT, THICK WHITE/YELLOW SPUTUM REMOVED. PT REMAINS AT RASS -5, NO BITING ON TUBE.DOES NOT AROUSE TO NAME/TOUCH.
[2019-02-20] MEDS ORDERED: VANCOMYCIN 750 MG in DEXTROSE 5% 250 ML IV SCH (21:00)
--- NOTE | 2019-02-20 22:57 | NUR ---
PT STARTED ON DIALYSIS, NURSE DEBORAH AT BEDSIDE.
--- NOTE | 2019-02-20 23:03 | NUR ---
ENDORSED DR. TOBIAS ABOUT NEW ORDER FOR INDIUM WBC SCAN WE DO NOT DO THAT PROCEDURE HERE PER RADIOLOGY, DR. TOBIAS TO FOLLOWUP.
--- NOTE | 2019-02-20 23:17 | NUR ---
VENT CHECK. PT IS ON DIALYSIS. NO DISTRESS NOTED. WILL CONTINUE TO MONITOR.
[2019-02-20] MEDS: FLUCONAZOLE 200 MG/NS PREMIX 100 ML IV SCH (23:35)
--- NOTE | 2019-02-20 23:36 | NUR ---
PER FACILITY MAINTENANCE MANAGER DEBORAH, TO HOLD ABX ASIDE FROM VANCOMYCIN AT THIS TIME. WILL ADMINISTER FOLLOWING COMPLETION OF DIALYSIS.
[2019-02-21] VITALS (68 sets, daily range): BP systolic 90–143; BP diastolic 42–89
[2019-02-21] MEDS: ALBUTEROL SULFATE/IPRATROPIU 3 ML SOL IH SCH ×5 (00:32→14:46)
[2019-02-21] MEDS: fentaNYL 1 MG in NACL 0.9% 80 ML IV PRN ×3 (02:24→14:45)
--- NOTE | 2019-02-21 02:29 | NUR ---
DIALYSIS COMPLETED, REMOVED 3.4 LITERS. BP 103/47. AFEBRILE TEMP 98.0. SUPPOSITORY GIVEN TO PATIENT AND REPOSITIONED. WILL HANG REMAINING ABX MEDS THAT WERE HELD BEFORE DIALYSIS.
[2019-02-21] MEDS: MIDAZOLAM MDV 100 MG in NACL 0.9% 80 ML IV PRN (03:10)
[2019-02-21 05:14] LABS: HEMATOCRIT 22.9 % (36-52); HEMOGLOBIN 7.2 g/dL (12.0-18.0); MEAN CORPUSCULAR HEMOGLOBIN 25 pg (27-31); MEAN CORPUSCULAR HGB CONC 31 g/dL (33-37); MEAN CORPUSCULAR VOLUME 78.5 fL (80-94); PLATELET COUNT (AUTO) 354 K/uL (140-450); RED BLOOD CELL COUNT(AUTO) 2.92 MIL/uL (4.20-6.10); RED CELL DISTRIBUTION WIDTH 17.7 % (11.6-13.7); WHITE BLOOD COUNT (AUTO) 23.1 K/uL (4.8-10.8)
--- NOTE | 2019-02-21 06:00 | NUR ---
DR. GOVEA IN TO SEE PATIENT, UPDATED ON PT CONDITIONS.
--- NOTE | 2019-02-21 06:15 | NUR ---
PT HAD LARGE BOWEL MOVEMENT, BROWN/HARD/FORMED. DR. GOVEA MADE AWARE.
[2019-02-21 06:22] LABS: LYMPHOCYTES % (MANUAL) 8 % (20-46); MONOCYTES % (MANUAL) 9 % (5-12)
--- NOTE | 2019-02-21 06:39 | NUR ---
REC'D PT ON CARESCAPE VENT SETTINGS PC 30 RR 16 PEEP 10 ITIME1.0 FIO2 70% ALARMS ON AND AUDIBLE, AMBU BAG AT SIDE OF VENT AND VENT IS PLUGGED INTO RED OUTLET, I\L TXS GIVEN WITH DUONEB 3ML AND PULMICORT 0.5MG WITH NO ADVERSE REACTION POST TX, B\S ARE COARSE BILATERALLY SXN PT CLEAR SECRETIONS, PT IS ORALLY INTUBATED WITH 7.5 ET TUBE AT 27CM SECURED WITH ANCHOR FAST PT IS SLEEPING
[2019-02-21] MEDS: NACL 0.9% 1,000 ML IV SCH (06:41)
[2019-02-21 06:45] LABS: CARBON DIOXIDE 32.2 mmol/L (21-32); CREATININE 2.5 mg/dL (0.7-1.3); POTASSIUM 3.2 mmol/L (3.5-5.1)
[2019-02-21] MEDS: BUDESONIDE 0.5 MG/2 ML NEBU INH SCH (06:49)
[2019-02-21 06:54] LABS: MAGNESIUM 1.8 mg/dL (1.8-2.4); PHOSPHORUS 4.6 mg/dL (2.5-4.9)
--- NOTE | 2019-02-21 08:00 | NUR ---
PATIENT INTUBATED 7.5 TUBE 27 IN THE LIP AND ON VENTILATOR ON PC FIO2 70%, PEEP 10 RATE 16, SO2 >94%, SINUS RHYTHM ON MONITOR, ON FENTANYL 200 MCG/HR, VERSED 8 MGS/HR., NORMAL SALINE 10 ML/HR THROUGH RIGHT INTERNAL JUGULAR CENTRAL LINE, DIALYSIS CATHETER AT LEFT INTERNAL JUGULAR, WITH OG TUBE TO NEPRO 40ML/HR, WATER FLUSH 200ML Q 4HOURS. TOLERATING AND NO RESIDUALS, FR. 16 SANDERS CATHETER TO UROBAG CLOUDY PAMELA URINE NOTED, OPEN WOUND RIGHT LOWER LEG WITH CLEAN DRY DRESSING, CLOSED DARK BROWN DISCOLORATION AT RIGHT EAR LOBE, GENERALIZED EDEMA, LIMBS ELEVATED WITH PILLOWS.
[2019-02-21] MEDS: CALCIUM ACETATE 667 MG TAB PO SCH (08:37)
[2019-02-21] MEDS: LACTOBACILLUS RHAMNOSUS GG 1 EACH CAP PO SCH (08:38)
[2019-02-21] MEDS: levETIRAcetam 500 MG TAB PO SCH (08:38)
[2019-02-21] MEDS: ASPIRIN 81 MG TAB.CHEW PO SCH (08:38)
[2019-02-21] MEDS: LINEZOLID 600MG PREMIX 300 ML IV SCH (08:38)
[2019-02-21] MEDS: PANTOPRAZOLE 40 MG INJ VIAL IVP SCH (08:39)
[2019-02-21] MEDS: BLOOD GLUCOSE MONITORING 1 DEV DEV FS SCH (08:53)
--- NOTE | 2019-02-21 08:55 | NUR ---
DR. DORANTES AT BEDSIDE. INFORMED HIM OF PATIENT'S URINE OUTPUT FOR 24 HRS AND SERUM POTASSIUM RESULT TODAY. NO NEW ORDERS RECEIVED
--- NOTE | 2019-02-21 09:20 | NUR ---
CALLED FUNDRAISING SPECIALIST KAYLEE AND INFORMED HER OF PATIENT'S DIALYSIS ORDERS FOR TOMORROW FROM DR. DORANTES
[2019-02-21] MEDS: MEROPENEM 1,000 MG in NACL 0.9% 100 ML IV SCH (10:07)
--- NOTE | 2019-02-21 10:53 | NUR ---
DR. GARCIA HERE FOR ROUNDS
--- NOTE | 2019-02-21 12:00 | NUR ---
PATIENT OFF SEDATION RIGHT NOW TO ASSESS NEURO STATUS
[2019-02-21] MEDS: GAUZE TP SCH (13:55)
--- NOTE | 2019-02-21 14:31 | NUR ---
PATIENT'S SON JUAN AT BEDSIDE AND GOT PATIENT'S MOBILE PHONE(1) AND WIRELESS ENGINEER(1). THIS WAS WITNESSED BY ICU CN ROSITA FRAZIER
--- NOTE | 2019-02-21 14:50 | NUR ---
NEUROLOGICAL ASSESSMENT. OFF SEDATIONS PATIENT CECILIA COMA 3, WEAK COUGH REFLEX NOTED, NO GAG REFLEX NOTED
--- NOTE | 2019-02-21 14:52 | NUR ---
RESUMED FENTANYL TO ORIGINAL RATE 200 MCG/HR. PATIENT RESPIRATION TRENDING IN THE 30s. DR. GOVEA AWARE
--- NOTE | 2019-02-21 15:00 | NUR ---
PATIENT'S CECILIA COMA SCORE REMAINS 3, NO EYE OPENING, NO MOVEMENTS
--- NOTE | 2019-02-21 15:05 | NUR ---
DR. GOVEA MADE AWARE OVER THE PHONE THAT PATIENT'S NEUROLOGICAL STATUS REMAINS THE SAME DURING SEDATION VACATION. NO FURTHER ORDERS RECEIVED
--- NOTE | 2019-02-21 15:19 | NUR ---
CONTINUATION: PATIENT'S ENDOTRACHEAL TUBE CONTINUES TO BE PRESENT IN THE MOUTH, CONTINUES TO BE SECURED AND SAME LIP LEVEL RECEIVED THIS MORNING
--- NOTE | 2019-02-21 15:19 | NUR ---
NOTED VENTILATOR "DISCONNECTED" ALARM. NOTED TUBING FROM THE VENTILATOR DISCONNECTED FROM PATIENT'S ENDO TRACHEAL TUBE. SO2 98%. CALLED RT KAMILLA TO AND INFORMED OF SITUATION AND TO COME TO SEE THE TUBE
--- NOTE | 2019-02-21 15:20 | NUR ---
RT KAMILLA UNABLE TO CONNECT BACK THE VENTILATOR TUBING TO THE PATIENT'S ENDOTRACHEAL TUBE WHICH WAS PRESENT IN THE PATIENT'S MOUTH. PER RT KAMILLA "TUBE NEEDS TO BE CHANGED" .CASE PICKER CALLED, RN PREPARED FOR INTUBATION EQUIPMENTS. RT AT BEDSIDE
--- NOTE | 2019-02-21 15:20 | NUR ---
CALLED TO ICU BY JESUSITA RILEY DUE TO ET TUBE D\C FROM VENT, PT WAS BAGGED WITH 100% FIO2 AND AT 1521 GLASS TUBE BENDER CALLED AND BOOGIE WAS USED TO REINSERT NEW ET TUBE AND BOOGIE AND ET TUBE OUT OF PT. AT 1532 DR. ROSENTHAL REINTUBATED PT WITH 7.5 ET TUBE AT 27 CM AT LIP AT 1553 CODE BLUE CALLED AND CPR STARTED AND ACLS DRUGS GIVEN PT WAS EXTUBED AT 1541 AND REINTUBE AT 1545 BY WITH 7.5 ET TUBE AND AT 1548 CPR STARTED AND ACLS DRUGS GIVEN PT WAS EX TUBED AT 1557 AND RE INTUBATED AT [address] NEWTON WITH 8.0 ET TUBE AT 24 CM AT LIP TUBE SECURED AND PT BACK ON VENT AT 1605 WITH SAME SETTINGS 1607 NO PULSES AND CPR STARTED AND ACLS DRUGS GIVEN 161 ASYSTOLE CPR STOPPED AND T.O.D 1615 BY .
--- NOTE | 2019-02-21 15:32 | NUR ---
DR. ROSENTHAL AT BEDSIDE AND CHANGED THE ET TUBE
--- NOTE | 2019-02-21 15:33 | NUR ---
DR. ROSENTHAL, DR. NG AUSCULTATED PATIENT'S CHEST AND BOTH CONFIRMED "TUBE IS IN". RADIOLOGY CALLED FOR CHEST XRAY
--- NOTE | 2019-02-21 15:35 | NUR ---
NOTED HEART RATE DOWN IN THE UP TO 50s AND PULSES NOT PALPABLE. KAREN MICHAEL CALLED. DR. ROSENTHAL, DR. NG STILL AT BEDSIDE AT THIS TIME. ACLS PROTOCOL STARTED. (SEE KAREN MICHAEL RECORD)
--- NOTE | 2019-02-21 15:45 | NUR ---
NO SO2 CAPTURED IN MONITOR. DR. NEWTON WHO'S AT BEDSIDE DURING THE CODE, REINTUBATED THE PATIENT
--- NOTE | 2019-02-21 15:58 | NUR ---
DR. NEWTON REINTUBATED PATIENT. NO SO2 CAPTURED IN THE MONITOR. CODE BLUE STILL ONGOING
--- NOTE | 2019-02-21 16:15 | NUR ---
DR. NG PRONOUNCED PATIENT'S . FAMILY MEMBERS: ISAEL BENJAMIN AT BEDSIDE AND DR. NG SPOKE TO THEM
--- NOTE | 2019-02-21 17:14 | NUR ---
CALLED [facility] AND PER FILEMON THEY WILL NOT CONSIDER THE PATIENT, CASE NO. [id number]
--- NOTE | 2019-02-21 17:37 | NUR ---
CALLED SUPERVISOR CABINETMAKER'S OFFICE AND SPOKE TO ELAINE AND ACCORDING TO HER THE SUPERVISOR CABINETMAKER WILL CALL BACK
--- NOTE | 2019-02-21 19:09 | NUR ---
CALLED [employer] AND TALKED TO KARIME ACCORDING TO HER SHE IS IN THE LINE WITH PATIENT'S FAMILY MEMBER. INFORMED KARIME THAT THE FOAM GUN OPERATOR HAS NOT CLEARED PATIENT YET
--- NOTE | 2019-02-21 21:10 | NUR ---
BODY RELEASED BY EXHIBIT BUILDER NAKITA BEAN WITH CASE NO. [id number].
--- NOTE | 2019-02-21 22:00 | NUR ---
BODY CLEANED AND PUT ON THE MORTUARY BAG.; NANDINI OF [facility] NOTIFIED TO SUCCESSFACTORS CONSULTANT THE BODY.
--- NOTE | 2019-02-22 00:05 | NUR ---
BODY MASTIC SPRAYER BY [employer].
== END 2019-02-21 16:15 | disposition expired | DRG 720 ==
LOC: MED 00:36 → MTU 03:07 → MIC 02-07 07:45
PROVIDERS: ADMIT General Practice; ATTEND General Practice
PROC: 5A09457 Assistance with Respiratory Ventilation, 24-96 Consecutive Hours, Continuous Positive Airway Pressure (ICD-10-PCS; 2019-02-07)
PROC: 02HV33Z Insertion of Infusion Device into Superior Vena Cava, Percutaneous Approach (ICD-10-PCS; 2019-02-07)
PROC: B548ZZA Ultrasonography of Superior Vena Cava, Guidance (ICD-10-PCS; 2019-02-07)
PROC: 0BH17EZ Insertion of Endotracheal Airway into Trachea, Via Natural or Artificial Opening (ICD-10-PCS; 2019-02-07)
PROC: 5A1955Z Respiratory Ventilation, Greater than 96 Consecutive Hours (ICD-10-PCS; principal; 2019-02-09)
PROC: 30233N1 Transfusion of Nonautologous Red Blood Cells into Peripheral Vein, Percutaneous Approach (ICD-10-PCS; 2019-02-09)
PROC: 5A1D70Z Performance of Urinary Filtration, Intermittent, Less than 6 Hours Per Day (ICD-10-PCS; 2019-02-16)
PROC: 02HV33Z Insertion of Infusion Device into Superior Vena Cava, Percutaneous Approach (ICD-10-PCS; 2019-02-16)
PROC: 5A1D70Z Performance of Urinary Filtration, Intermittent, Less than 6 Hours Per Day (ICD-10-PCS; 2019-02-17)
PROC: 5A1D70Z Performance of Urinary Filtration, Intermittent, Less than 6 Hours Per Day (ICD-10-PCS; 2019-02-18)
PROC: 5A1D70Z Performance of Urinary Filtration, Intermittent, Less than 6 Hours Per Day (ICD-10-PCS; 2019-02-19)
PROC: 5A1D70Z Performance of Urinary Filtration, Intermittent, Less than 6 Hours Per Day (ICD-10-PCS; 2019-02-20)
DX: A41.9 Sepsis, unspecified organism (principal); J96.21 Acute and chronic respiratory failure with hypoxia; N17.0 Acute kidney failure with tubular necrosis; J69.0 Pneumonitis due to inhalation of food and vomit; G92 Toxic encephalopathy; R65.21 Severe sepsis with septic shock; E43 Unspecified severe protein-calorie malnutrition; N15.1 Renal and perinephric abscess; I50.43 Acute on chronic combined systolic (congestive) and diastolic (congestive) heart failure; R13.11 Dysphagia, oral phase; I46.9 Cardiac arrest, cause unspecified; E83.39 Other disorders of phosphorus metabolism; K72.90 Hepatic failure, unspecified without coma; D50.9 Iron deficiency anemia, unspecified; F15.10 Other stimulant abuse, uncomplicated; N39.0 Urinary tract infection, site not specified; E10.22 Type 1 diabetes mellitus with diabetic chronic kidney disease; E66.9 Obesity, unspecified; E78.5 Hyperlipidemia, unspecified; E83.41 Hypermagnesemia; E83.42 Hypomagnesemia; E83.52 Hypercalcemia; E86.0 Dehydration; E87.1 Hypo-osmolality and hyponatremia; E87.5 Hyperkalemia; F11.23 Opioid dependence with withdrawal; F17.210 Nicotine dependence, cigarettes, uncomplicated; G40.909 Epilepsy, unspecified, not intractable, without status epilepticus; I13.0 Hypertensive heart and chronic kidney disease with heart failure and stage 1 through stage 4 chronic kidney disease, or unspecified chronic kidney disease; J44.9 Chronic obstructive pulmonary disease, unspecified; K76.0 Fatty (change of) liver, not elsewhere classified; N18.9 Chronic kidney disease, unspecified; D63.8 Anemia in other chronic diseases classified elsewhere; T43.621A Poisoning by amphetamines, accidental (unintentional), initial encounter; T40.1X1A Poisoning by heroin, accidental (unintentional), initial encounter; L89.892 Pressure ulcer of other site, stage 2; H70.899 Other mastoiditis and related conditions, unspecified ear; Z88.0 Allergy status to penicillin; Z91.19 Patient's noncompliance with other medical treatment and regimen; Z59.0 Homelessness; Z91.14 Patient's other noncompliance with medication regimen; Y92.89 Other specified places as the place of occurrence of the external cause; Z71.51 Drug abuse counseling and surveillance of drug abuser; Z68.41 Body mass index [BMI] 40.0-44.9, adult
CPT/HCPCS: 31500; 36415; 36600; 70450; 71045; 71270; 76604; 76770; 80048; 80053; 80202; 80305; 81001; 82140; 82272; 82436; 82553; 82570; 82803; 82948; 83540; 83605; 83735; 83880; 84100; 84300; 84484; 84550; 85025; 85610; 85730; 86704; 86706; 86708; 86709; 86803; 86886; 86900; 86901; 86920; 87040; 87070; 87081; 87086; 87205; 87340; 87804; 89220; 90935; 92950; 93005; 93925; 93970; 94002; 94003; 94640; 94660; 96361; 96365; 99285; C9113; G0480; G0482; J0360; J0456; J0696; J1450; J1642; J1644; J1815; J1885; J1940; J1956; J2020; J2060; J2185; J2250; J2270; J2310; J2370; J2405; J2704; J2916; J2997; J3010; J3370; J3475; J3490; J7030; J7042; J7060; J7620; J7626; P9016; P9046; Q0092; Q0163; Q9967